=== PATIENT | male | born 1950 | race Caucasian/White ===

== ENCOUNTER 2021-01-22 15:31 | Inpatient (IN) | payer OTHER, MEDICARE ==
--- NOTE | 2021-01-22 16:49 | EDM.PDOC ---
ED HPI GENERAL MEDICAL PROBLEM - General Chief Complaint: Trauma Stated Complaint: KICKED BY BULL LT/RT LEG INJURIES Time Seen by Provider: 01/22/21 16:22 Source of Information: Reports: Patient, Family (spouse) History Limitations: Reports: No Limitations - History of Present Illness INITIAL COMMENTS - FREE TEXT/NARRATIVE: 71-year-old male presents to the ED per private vehicle. Patient was injured in the workplace at the local [employer] yard approximately 45 minutes before coming to the ED. Patient was struck broadside by a bull in the left lower extremity which propelled him into a steel chacon fence. 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 Injuries have resulted in significant contusion to the right lower extremity and hip. Patient is on Coumadin chronically for paroxysmal atrial fibrillation and he has developed significant hematomas lateral left knee left calf. Hematomas right calf and contusion to the right hip. Patient states he could walk initially and did not get propelled to the ground or kicked or stomped on in any other area. He denies any rib pain shoulder pain head or neck injury. Has chronic low back pain states he is no worse than normal. Ice packs were placed on both lower extremities upon arrival in the ED due to his significant hematoma formation. Onset: Today, Sudden Onset Date: 01/22/21 Duration: Minutes:, Getting Worse Location: Reports: Lower Extremity, Left, Lower Extremity, Right Quality: Reports: Ache, Throbbing Severity: Moderate (Right leg slightly worse than the left.) Improves with: Reports: None Worsens with: Reports: Movement (Any attempt to dorsiflex either foot causes increased pain lateral legs bilaterally.) Context: Reports: Trauma (Patient was injured by a bull in the workplace.) Associated Symptoms: Reports: Shortness of Breath (Occasion. Requires). Denies: Confusion, Chest Pain, Cough, cough w sputum, Diaphoresis, Fever/Chills, Headaches, Loss of Appetite, Malaise, Nausea/Vomiting, Rash, Seizure, Syncope Treatments MANUFACTURING WEAVER: Reports: Other (see below) Other Treatments MANUFACTURING WEAVER: none Right Lower Leg Pain Score (Numeric/FACES): 9 Left Lower Leg Pain Score (Numeric/FACES): 7 Left Knee Pain Score (Numeric/FACES): 7 - Related Data Allergies Allergy/AdvReac Type Severity Reaction Status Date / Time atorvastatin calcium Allergy Severe Cannot Verified 01/22/21 16:34 [From Lipitor] Remember Home Meds: Home Meds Albuterol [Ventolin HFA] 2 puff INH Q4H PRN 02/12/14 [History] Amiodarone [Cordarone] 90 mg PO DAILY 02/12/14 [History] Aspirin [[place] Aspirin] 81 mg PO DAILY 02/12/14 [History] Metoprolol Succinate 50 mg PO DAILY 02/12/14 [History] Nitroglycerin 0.4 mg SL ASDIRECTED PRN 02/12/14 [History] Rosuvastatin [Crestor] 40 mg PO DAILY 02/12/14 [History] Vitamin B Complex [Super B-50 Complex] 1 each PO DAILY 02/12/14 [History] Warfarin [Coumadin] 2.5 mg PO MOTUWEFRSA 02/12/14 [History] polyethylene glycoL 3350 [MiraLAX] 17 gm PO ASDIRECTED PRN 02/12/14 [History] Acetaminophen [Tylenol] 650 mg PO BEDTIME 01/22/21 [History] Acetaminophen [Tylenol] 650 mg PO Q6H PRN 01/22/21 [History] Eye-Vites 1 tab PO BID 01/22/21 [History] Gabapentin [Neurontin] 300 mg PO BEDTIME 01/22/21 [History] Valsartan 320 mg PO DAILY 01/22/21 [History] Warfarin [Coumadin] 1.25 mg PO SUTH 01/22/21 [History] amLODIPine [Norvasc] 2.5 mg PO DAILY 01/22/21 [History] Past Medical History Cardiovascular History: Reports: Afib (Paroxysmal atrial fibrillation. Patient is on Coumadin 2 mg daily.), High Cholesterol, Hypertension, [place], Stents (X2 placed back to back. 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 He was on Plavix for greater than 1 year after surgery.) Respiratory History: Reports: COPD (To be mild.) Other Respiratory History: Does use albuterol metered-dose inhaler as needed. 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 Spinal stenosis surgery. Continues to have chronic low back pain) Musculoskeletal Surgical History: Reports: Hip Replacement, Joint Replacement (bilateral reverse total shoulders). Denies: Knee Replacement Oncologic Surgical History: Reports: None Social & Family History - Tobacco Use Tobacco Use Status *Q: Never Tobacco User - Alcohol Use Alcohol Use History: Yes Date/Time of Last Drink Comment: Very infrequent or rare alcohol use. - Living Situation & Occupation Living situation: Reports: Occupation: Employed Review of Systems - Review of Systems Review Of Systems: See Below Constitutional: Denies: Chills, Diaphoresis, Fever, Weakness Eyes: Reports: No Symptoms Ears: Reports: Tinnitus (Mild bilaterally.), Other (Admits that he is mildly hard of hearing.) Nose: Reports: No Symptoms Mouth/Throat: Reports: No Symptoms. Denies: Bleeding Respiratory: Reports: Shortness of Breath (On exertion at times. Occasional wheezing. He does use albuterol inhaler as needed), Wheezing, Cough. Denies: Pleuritic Chest Pain, Sputum, Hemoptysis (Nonproductive) Cardiovascular: Reports: Irregular Heart Rate (History of paroxysmal atrial fibrillation.). Denies: Chest Pain, Edema GI/Abdominal: Reports: Constipation (Takes MiraLAX daily.) Genitourinary: Reports: Other (Urinary frequency. Nocturia x2-3.) Musculoskeletal: Reports: Neck Pain, Shoulder Pain, Back Pain (Chronic low back pain.), Joint Pain (Right hip both knees.) Skin: Reports: Bruising (Since being on Coumadin. He reports he is no longer taking Plavix. He does take a baby aspirin daily.) Neurological: Reports: No Symptoms, Difficulty Walking (Post injury to his legs today.). Denies: Confusion, Dizziness, Headache, Numbness, Syncope, Tingling, Weakness Psychiatric: Reports: No Symptoms, Other (Patient was on trazodone in the past. He believes this is to try and help him sleep. He is no longer taking this medication) ED EXAM, GENERAL - Physical Exam Exam: See Below Exam Limited By: No Limitations General Appearance: Alert, WD/WN, No Apparent Distress, Other (Temperature is 36.5 degrees. Heart rate 65 and sinus. Respiratory is 20 with ) Eye Exam: Bilateral Eye: Normal Inspection (Evidence of bilateral cataract extraction and intraocular lens placement.) Throat/Mouth: Normal Inspection, Normal Lips, Normal Oropharynx, Other (No injuries to his face, lips or tongue.) Head: Atraumatic, Normocephalic, Other (No signs of head or facial trauma) Neck: Normal Inspection, Non-Tender, Tender Lateral (Mild tenderness laterally. He states no worse than normal.). No: Carotid Bruit, Lymphadenopathy (L), Lymphadenopathy (R) Respiratory/Chest: Respiratory Distress (Mild tachypnea. O2 sats are 96% room air.), Decreased Breath Sounds (Decreased air entry lower 20% of lung feliz bilaterally.). No: Rhonchi, Wheezing Cardiovascular: Normal Peripheral Pulses, Regular Rate, Rhythm, No Edema, No Gallop, No Murmur, No Rub Peripheral Pulses: 3+: Carotid (L), Carotid (R), Posterior Tibial (L), Posterior Tibial (R), Dorsalis Pedis (L), Dorsalis Pedis (R) GI/Abdominal: Normal Bowel Sounds, Soft, Non-Tender, No Organomegaly, No Abnormal Bruit, No Mass, Pelvis Stable, Other (Evidence of previous laparoscopic cholecystectomy) (Male) Exam: No Hernia Back Exam: Other (Increased lordotic curvature. No evidence of injury to the lumbar thoracic spine on palpation. No contusion or abrasion to the thorax or lower back. No pain right flank.) Extremities: Limited Range of Motion (Pain both lower extremities on dorsiflexion of his feet. Right lower extremity shows hematoma from knee to ankle laterally. Pain right lateral hip on palpation without evidence of fracture clinically. He has had previous left total hip replacement), Other (Patient has a large hematoma softball size left lateral knee. No medial joint tenderness no traumatic effusion evident at this time. Unable to palpate lateral ligaments due to size of hematoma. Large hematoma lateral left leg from knee to ankle. Ecchymosis developing). No: Normal Inspection, Normal Range of Motion, Pedal Edema Neurological: Alert, Oriented, CN II-XII Intact, Normal Cognition Psychiatric: Normal Affect, Normal Mood Skin Exam: Warm, Dry, Intact, Ecchymosis ([facility] left lateral knee left lateral leg.) #1 Interpretation EKG Date: 01/22/21 Time: 18:07 Rhythm: NSR Rate (Beats/Min): 60 Underwood: LAD-Left Underwood Deviation (Left axis deviation -37 degrees) P-Wave: Present (Consider left atrial hypertrophy) QRS: Other (Near Q waves V1 and V2 consider old anteroseptal myocardial infarction. Q waves in leads II, III and aVF old inferior wall myocardial infarction. Tall R wave in lead I consider left ventricular perjury pattern) ST-T: Other (Abnormal R wave progression with delayed transition. T wave inversion leads V1 to V4 and flattening in V5 and V6. Consider ischemia.) EKG Interpretation Comments: Abnormal ECG Course - Vital Signs Last Recorded V/S: Last Vital Signs Temp 36.5 C 01/22/21 16:22 Pulse 65 01/22/21 16:22 Resp 20 01/22/21 16:22 BP 127/76 01/22/21 16:22 Pulse Ox 96 01/22/21 16:22 - Orders/Labs/Meds Orders: Active Orders 24 hr Category Date Time Status EKG Documentation Completion [RC] STAT Care 01/22/21 17:58 Active Tibia Fibula Rt [CR] Stat Exams 01/22/21 16:39 Taken Labs: Laboratory Tests 01/22/21 01/22/21 01/22/21 Range/Units 16:35 16:35 16:35 WBC 9.01 (4.23-9.07) K/mm3 RBC 4.61 L (4.63-6.08) M/mm3 Hgb 14.0 (13.7-17.5) gm/dl Hct 41.3 (40.1-51.0) % MCV 89.6 (79.0-92.2) fl MCH 30.4 (25.7-32.2) pg MCHC 33.9 (32.2-35.5) g/dl RDW Std Deviation 43.3 (35.1-43.9) fL Plt Count 153 L (163-337) K/mm3 MPV 10.5 (9.4-12.3) fl Neut % (Auto) 71.6 H (34.0-67.9) % Lymph % (Auto) 17.1 L (21.8-53.1) % Calloway % (Auto) 9.3 (5.3-12.2) % Eos % (Auto) 1.4 (0.8-7.0) Baso % (Auto) 0.4 (0.1-1.2) % Neut # (Auto) 6.44 H (1.78-5.38) K/mm3 Lymph # (Auto) 1.54 (1.32-3.57) K/mm3 Calloway # (Auto) 0.84 H (0.30-0.82) K/mm3 Eos # (Auto) 0.13 (0.04-0.54) K/mm3 Baso # (Auto) 0.04 (0.01-0.08) K/mm3 PT 31.2 H (9.7-12.0) SECONDS INR 2.98 Sodium 141 (136-145) mEq/L Potassium 3.6 (3.5-5.1) mEq/L Chloride 108 H (98-107) mEq/L Carbon Dioxide 24 (21-32) mEq/L Anion Gap 12.6 (5-15) BUN 18 (7-18) mg/dL Creatinine 1.0 (0.7-1.3) mg/dL Est Cr Clr Drug Dosing 65.79 mL/min Estimated GFR (MDRD) > 60 (>60) mL/min BUN/Creatinine Ratio 18.0 (14-18) Glucose 165 H (70-99) mg/dL Calcium 8.4 L (8.5-10.1) mg/dL Total Bilirubin 1.0 (0.2-1.0) mg/dL AST 22 (15-37) U/L ALT 34 (16-63) U/L Alkaline Phosphatase 62 (46-116) U/L Total Protein 6.7 (6.4-8.2) g/dl Albumin 3.9 (3.4-5.0) g/dl Globulin 2.8 gm/dL Albumin/Globulin Ratio 1.4 (1-2) Meds: Medications Discontinued Medications Generic Name Dose Route Start Last Admin Trade Name Freq PRN Reason Stop Dose Admin Hydromorphone HCl 0.5 mg 01/22/21 18:45 01/22/21 19:00 Hydromorphone 0.5 Mg/0.5 Ml Syringe IVPUSH 01/22/21 18:46 0.5 mg ONETIME ONE Administration Hydromorphone HCl 0.5 mg 01/22/21 19:50 01/22/21 20:04 Hydromorphone 0.5 Mg/0.5 Ml Syringe IVPUSH 01/22/21 19:51 0.5 mg ONETIME ONE Administration Dextrose/Sodium Chloride 1,000 mls @ 150 mls/hr 01/22/21 17:00 Dextrose 5%-Normal Saline IV ASDIRECTED BUBBA Lorazepam 1 mg 01/22/21 16:51 01/22/21 17:50 Lorazepam 2 Mg/Ml Sdv IVPUSH 01/22/21 16:52 Not Given ONETIME ONE Metoclopramide HCl 10 mg 01/22/21 16:50 01/22/21 17:51 Metoclopramide 10 Mg/2 Ml Sdv IVPUSH 01/22/21 16:51 Not Given ONETIME ONE Ondansetron HCl 4 mg 01/22/21 18:45 01/22/21 19:00 Ondansetron 4 Mg/2 Ml Sdv IVPUSH 01/22/21 18:46 4 mg ONETIME ONE Administration - Radiology Interpretation Free Text/Narrative:: 71-year-old male presents to the ED after injury in the workplace today. He is an employee of the [employer] here in [place]. He states he was moving bulls from 1 pen to the next when one struck him broadside by the butt of the bull. Believes he was kicked in the left lower leg as well. This resulted in propelling him into a large steel chacon fence injuring his left lower extremity and left lateral hip. He did not get knocked to the ground. He did not get stomped on or kicked in any other place. Patient is on Coumadin daily for paroxysmal atrial fibrillation. He waited about 45 minutes but developed significant swelling of both lower extremities and left lateral knee and elected to come to the hospital per his and private vehicle. Patient states he was able to walk out of the car but quickly sat in a wheelchair before coming into the ED. He denies any head or neck pain. Denies any thoracic or lumbar spine pain. No pain in his upper extremities. Patient has a left total knee hip replacement. He has had bilateral shoulder replacements as well. - Re-Assessments/Exams Free Text/Narrative Re-Assessment/Exam: 01/22/21 17:41 x-rays of the right femur reveal advanced degenerative arthritic changes within the hip joint. No fractures are identified. X-rays of the left tib-fib reveal no evidence of a fracture. There is moderate degenerative arthritic change in the left knee. X-rays of the right tib-fib reveal moderate degenerative changes right knee particularly medial joint space. There is also arthritic changes at the patellofemoral articulation. There is a hairline nondisplaced fracture of the proximal right fibula. There is also slight bowing of the fibula . Treatment will be nonweightbearing--which is likely going to be the case anyway since he has significant hematomas both lower extremities and will likely find it impossible to walk over the next 36 to 48 hours. 01/22/21 17:47 White blood cell count is normal at 9.01. Neutrophils are 71.6% on the auto differential. Hemoglobin is 14.0 with hematocrit of 41.3. Platelet count is low normal at 1 53,000. PT is elevated at 31.2 with an INR elevated at 2.98. Mildly supratherapeutic. Sodium is 141 with potassium of 3.6. Chloride is 108 with a bicarb of 24. Anion gap is 12.6. BUN is 18 with a creatinine of 1.0 and a GFR greater than 60. Glucose is elevated 165. Calcium is 8.4 liver function is normal. Total protein 6.7 with an albumin fraction of 3.9. 01/22/21 17:56 I have discussed the findings with the patient and his family i.e. daughter and . He is significant hematoma from knee to ankle bilaterally on the lateral aspect of his legs. It is unlikely that he will be able to weight-bear. At present he has to void. He is going to try and walk see if he can weight-bear which would allow him to go home although hematomas are likely to increase in size over the next 24 to 48 hours. He is likely to experience severe pain with dorsiflexion of both feet. On reexamination the patient has strong dorsalis pedis and posterior tibial pulses bilaterally. Risk of compartment syndrome is present but is unlikely since most of the hematomas are in the lateral compartment bilaterally. I will have the nurses come and help him to see if he can weight-bear which I think is unlikely. He has to void at this time and will likely require urinal. 01/22/21 18:33 We did get the patient up to the standing position and he was not able to take any steps and only able to shuffle a couple of steps before had the pain became severe in his lower extremities right slightly worse than the left. He still has very strong dorsalis pedis and proximal tibial pulses bilaterally. I have spoken with Dr. Mejia on-call hospitalist and he will be admitted to the med surgery floor. I will write bridge orders to get this patient admitted. He will require pulse check every 2 hours for the next 12 hours. I am going to give him 0.5 mg of Dilaudid with Zofran 4 mg IV for pain relief. The right lower extremity is throbbing quite badly at this time. Unf ortunately cafeteria is close to this time. Family members are going to bring him back some supper. 01/22/21 19:35 Patient is looking a little peaked. He reports he did develop some flushing after the Dilaudid 0.5 mg IV and a little nausea. He has received Zofran 4 mg IV. Suggest that he receive Zofran 4 mg IV prior to further dosing with Dilaudid. He reports his pain is gone from a 9 down to a 5. He is going to eat a little supper at present. We will repeat Dilaudid in 20 minutes or so. Patient to the [facility] surgery floor is delayed due to waiting for his COVID-19 screen. 01/22/21 20:31 patient feels second dose of Dilaudid 0.5 mg IV given at 2000 hrs. has taken the edge off of his pain in his legs. He was able to nod off a wee bit. Did not eat much of his supper as he remained mildly nauseated. No increased nausea at this time after second dose of Dilaudid with Zofran on board. Departure - Departure Time of Disposition: 20:30 Disposition: Admitted As Inpatient 64 Condition: Fair Clinical Impression: Contusion of right lower leg, initial encounter, Contusion of right hip, initial encounter, Supratherapeutic INR, Paroxysmal atrial fibrillation Contusion of left lower extremity Qualifiers: Encounter type: initial encounter Qualified Code(s): S80.12XA - Contusion of left lower leg, initial encounter Fracture of proximal end of right fibula Qualifiers: Encounter type: initial encounter Fracture type: closed Fracture morphology: other fracture Qualified Code(s): S82.831A - Other fracture of upper and lower end of right fibula, initial encounter for closed fracture - Discharge Information Sepsis Event Note (ED) - Focused Exam Vital Signs: Vital Signs Temp Pulse Resp BP Pulse Ox 01/22/21 16:22 36.5 C 65 20 127/76 96 - My Orders Last 24 Hours: My Active Orders 01/22/21 16:39 Tibia Fibula Rt [CR] Stat 01/22/21 17:58 EKG Documentation Completion [RC] STAT - Assessment/Plan Last 24 Hours: My Active Orders 01/22/21 16:39 Tibia Fibula Rt [CR] Stat 01/22/21 17:58 EKG Documentation Completion [RC] STAT
[2021-01-22] MEDS ORDERED: Metoclopramide 10 MG/2 ML SDV IVPUSH ONE (16:50)
[2021-01-22] MEDS ORDERED: LORazepam 2 MG/ML SDV IVPUSH ONE (16:51)
[2021-01-22] MEDS ORDERED: Dextrose 5%-0.9% NaCl 1,000 ML IV SCH (17:00)
--- NOTE | 2021-01-22 17:33 | CR ---
Right femur: AP and lateral views of the right femur were obtained. Comparison: No previous right femur study. Joint space narrowing is seen within the right hip. Spurring is noted off the patella at the attachment of the quadriceps tendon and patellar ligament. Vascular calcification is noted. No acute fracture or other bony abnormality is appreciated. Impression: 1. Findings as noted above. 2. Nothing acute is seen on right femur study. Diagnostic code #2
--- NOTE | 2021-01-22 17:33 | CR ---
Left tibia and fibula: 2 views of the left tibia and fibula were obtained. Comparison: No prior left tibia or fibula exam. No acute fracture or other bony abnormality is seen. Soft tissue swelling is seen. Impression: 1. Soft tissue swelling. 2. No acute bony abnormality is seen. Diagnostic code #2
[2021-01-22] MEDS ORDERED: Ondansetron 4 MG/2 ML SDV IVPUSH ONE (18:45)
[2021-01-22] MEDS ORDERED: HYDROmorphone 0.5 MG/0.5 ML Syringe IVPUSH ONE ×2 (18:45→19:50)
[2021-01-23] MEDS ORDERED: Ondansetron 4 MG/2 ML SDV IVPUSH PRN (00:35)
[2021-01-23] MEDS: HYDROmorphone 0.5 MG/0.5 ML Syringe IVPUSH PRN ×4 (00:47→14:09)
--- NOTE | 2021-01-23 07:23 | PCM.HP.2 ---
H&P History of Present Illness - General Date of Service: 01/23/21 Admit Problem/Dx: Admission Diagnosis/Problem Admission Diagnosis/Problem Hematoma and contusion Source of Information: Patient, Old Records, Provider, RN, RN Notes Reviewed History Limitations: Reports: No Limitations - History of Present Illness Initial Comments - Free Text/Narative: This is a 71-year male who presents to our ED on the evening of 01/22/2021 after workplace injury at the [employer] yard. He reportedly struck by a ball and slammed into a steel chacon fence. He was reportedly struck on the left side which resulted in right lower extremity and hip pain. He is on Coumadin for proximal A. fib and is noted to have significant hematomas over the lateral left knee and left calf. There are also hematomas noted to the right calf and contusion of the right hip. He was able to walk initially after the injury. Denies any rib pain, shoulder pain, head or neck pain. He does have chronic low back pain but states that that is stable. Bystanders did apply ice packs and those are present on ED arrival. In the ED twelve-lead EKG is obtained showing a sinus rhythm at 60 bpm with left axis deviation. Consider left atrial hypertrophy. There are near Q waves in V1 and V2 and Q waves noted in inferior leads. Tall R waves are noted in lead I. There is abnormal R wave progression with delayed transition and T wave inversion in leads V1 through V4 with flattening in V5 and V6. Temp is 36.5. Pulse 65. Respirations 20. Blood pressure 127/76. Pulse ox 96%. Labs are obtained with a WBC of 9.01. Hemoglobin is 14.0. Hematocrit 41.3. Platelet 153,000. Neutrophils are 71.6%. INR is 2.98. Sodium 141. Potassium 3.6. Chloride 108. Carbon dioxide 24. Anion gap 12.6. BUN is 18. Creatinine 1.0. GFR greater than 60. Glucose 165. Calcium 8.4. Total bilirubin 1.0. AST is 22, ALT 34, alkaline phosphatase 62. Protein is 6.7. Albumin 3.9. SARS-CoV-2 RNA is negative. Left tibia-fibula x-ray was obtained showing soft tissue swelling and no acute bony abnormality. Right femur x-rays obtained showing findings as noted above but no acute abnormality. Formal read of the right tibia and fibula are pending however ED provider notes hairline nondisplaced fracture of the proximal right fibula with slight bowing of the fibula. He is noted to be unable to bear weight in the ED. he is given Dilaudid, lorazepam, Zofran, and metoclopramide in the ED for pain and nausea. He started on D5 NS. He subsequently admitted to the medical floor for further management of his pain from hematoma and fracture. He carries a history of proximal A. fib, chronic anticoagulation on Coumadin, HLD, HTN, SC with 2 stents placed, COPD, arthritis, chronic back pain, osteoarthritis. He was never smoker. He is a full code. His PCP is Dr. Madelin Rincon at [facility] in [place]. Right Lower Leg Pain Score (Numeric/FACES): 9 Left Lower Leg Pain Score (Numeric/FACES): 7 Left Knee Pain Score (Numeric/FACES): 7 - Related Data Allergies/Adverse Reactions: Allergies Allergy/AdvReac Type Severity Reaction Status Date / Time atorvastatin calcium Allergy Severe Liver Verified 01/22/21 23:10 [From Lipitor] Problems Home Medications: Home Meds Albuterol [Ventolin HFA] 2 puff INH Q4H PRN 02/12/14 [History] Aspirin [[place] Aspirin] 81 mg PO DAILY 02/12/14 [History] Metoprolol Succinate 50 mg PO DAILY 02/12/14 [History] Nitroglycerin 0.4 mg SL ASDIRECTED PRN 02/12/14 [History] Rosuvastatin [Crestor] 40 mg PO DAILY 02/12/14 [History] Vitamin B Complex [Super B-50 Complex] 1 each PO DAILY 02/12/14 [History] Warfarin [Coumadin] 2.5 mg PO MOTUWEFRSA 02/12/14 [History] polyethylene glycoL 3350 [MiraLAX] 17 gm PO ASDIRECTED PRN 02/12/14 [History] Acetaminophen [Tylenol] 650 mg PO Q6H PRN 01/22/21 [History] Eye-Vites 1 tab PO BID 01/22/21 [History] Gabapentin [Neurontin] 300 mg PO BEDTIME 01/22/21 [History] Valsartan 320 mg PO DAILY 01/22/21 [History] Warfarin [Coumadin] 1.25 mg PO SUTH 01/22/21 [History] amLODIPine [Norvasc] 2.5 mg PO DAILY 01/22/21 [History] Calcium Citrate/Vitamin D3 [Calcium Citrate-Vit D Caplet] 315 mg PO DAILY 01/23/21 [History] Isosorbide Mononitrate [Imdur] 60 mg PO DAILY 01/23/21 [History] Past Medical History HEENT History: Reports: Cataract, Hard of Hearing, Other (See Below) Other HEENT History: Hearing aids, not with patient. Cardiovascular History: Reports: Afib, High Cholesterol, Hypertension, SC, Stents Respiratory History: Reports: COPD, SOB Other Respiratory History: Does use albuterol metered-dose inhaler as needed. Gastrointestinal History: Reports: Hemorrhoids Genitourinary History: Reports: Renal Calculus, Other (See Below) Other Genitourinary History: Patient reports current kidney stone (01/22). Musculoskeletal History: Reports: Arthritis, Back Pain, Chronic, Osteoarthritis Neurological History: Reports: TIA Oncologic (Cancer) History: Reports: Other (See Below) Other Oncologic History: Skin cancer. - Infectious Disease History Infectious Disease History: Reports: Novel Coronavirus - Past Surgical History HEENT Surgical History: Reports: Cataract Surgery Cardiovascular Surgical History: Reports: Carotid Stents, Coronary Artery Stent Respiratory Surgical History: Reports: None GI Surgical History: Reports: Cholecystectomy Neurological Surgical History: Reports: Lumbar Spine, Other (See Below) Other Neurological Surgeries/Procedures: Removed bone spur on spine. Musculoskeletal Surgical History: Reports: Hip Replacement, Joint Replacement Other Musculoskeletal Surgeries/Procedures:: left Oncologic Surgical History: Reports: None Social & Family History - Family History Family Medical History: No Pertinent Family History - Tobacco Use Tobacco Use Status *Q: Never Tobacco User - Caffeine Use Caffeine Use: Reports: Coffee, Soda - Recreational Drug Use Recreational Drug Use: No - Living Situation & Occupation Living situation: Reports: Occupation: Employed H&P Review of Systems - Review of Systems: Review Of Systems: See Below General: Reports: No Symptoms. Denies: Fever, Chills, Malaise, Weakness, Fatigue HEENT: Reports: Other (Chronic mild tinnitus bilaterally). Denies: Headaches, Sore Throat Pulmonary: Reports: No Symptoms. Denies: Shortness of Breath, Wheezing, Pleuritic Chest Pain, Cough, Sputum Cardiovascular: Reports: No Symptoms. Denies: Chest Pain, Palpitations, Orthopnea, Edema Gastrointestinal: Reports: Constipation (chronic ). Denies: Abdominal Pain, Diarrhea, Nausea, Vomiting Genitourinary: Reports: No Symptoms. Denies: Pain Musculoskeletal: Reports: Shoulder Pain (chronic ), Back Pain (chronic ), Leg Pain (bilateral ), Joint Pain (bilateral kips and knees ) Skin: Reports: No Symptoms Psychiatric: Reports: No Symptoms. Denies: Confusion Neurological: Reports: No Symptoms, Difficulty Walking, Gait Disturbance. Denies: Confusion, Dizziness, Headache, Numbness, Pre-Existing Deficit, Syncope, Tingling, Weakness Hematologic/Lymphatic: Reports: No Symptoms, Easy Bleeding, Easy Bruising Immunologic: Reports: No Symptoms Exam - Exam Exam: See Below - Vital Signs Vital Signs: Last Vital Signs Temp 98.4 F 01/23/21 05:24 Pulse 57 L 01/23/21 05:24 Resp 14 01/23/21 05:24 BP 127/65 01/23/21 05:24 Pulse Ox 95 01/23/21 05:24 Weight: 255 lb 4.8 oz - Exam Quality Assessment: DVT Prophylaxis. No: Supplemental Oxygen, Urinary Catheter General: Alert, Oriented, Cooperative. No: Mild Distress HEENT: Conjunctiva Clear, EACs Clear, Mucosa Moist & [place], Posterior Pharynx Clear Neck: Supple, Trachea Midline Lungs: Clear to Auscultation, Normal Respiratory Effort, Decreased Breath Sounds Cardiovascular: Regular Rate, Regular Rhythm GI/Abdominal Exam: Normal Bowel Sounds, Soft, Non-Tender, No Distention (Male) Exam: Deferred Rectal (Males) Exam: Deferred Back Exam: Normal Inspection, Full Range of Motion Extremities: Non-Tender, No Pedal Edema, Normal Capillary Refill, Leg Pain (Bilateral), Limited Range of Motion (Secondary to pain), Other (Hematoma on right leg from knee to ankle laterally. Hematoma on left lateral knee. Hematoma on lateral leg from knee to ankle. Scattered ecchymosis bilaterally.) Peripheral Pulses: 2+: Radial (L), Radial (R), Dorsalis Pedis (L), Dorsalis Pedis (R) Skin: Warm, Dry, Intact, Ecchymosis (Scattered) Neurological: Cranial Nerves Intact (Grossly) Neuro Extensive - Mental Status: Alert, Oriented x3, Normal Mood/Affect - Patient Data Lab Results Last 24 hrs: Laboratory Results - last 24 hr 01/22/21 01/22/21 01/22/21 Range/Units 16:35 16:35 16:35 WBC 9.01 (4.23-9.07) K/mm3 RBC 4.61 L (4.63-6.08) M/mm3 Hgb 14.0 (13.7-17.5) gm/dl Hct 41.3 (40.1-51.0) % MCV 89.6 (79.0-92.2) fl MCH 30.4 (25.7-32.2) pg MCHC 33.9 (32.2-35.5) g/dl RDW Std Deviation 43.3 (35.1-43.9) fL Plt Count 153 L (163-337) K/mm3 MPV 10.5 (9.4-12.3) fl Neut % (Auto) 71.6 H (34.0-67.9) % Lymph % (Auto) 17.1 L (21.8-53.1) % [place] % (Auto) 9.3 (5.3-12.2) % Eos % (Auto) 1.4 (0.8-7.0) Baso % (Auto) 0.4 (0.1-1.2) % Neut # (Auto) 6.44 H (1.78-5.38) K/mm3 Lymph # (Auto) 1.54 (1.32-3.57) K/mm3 [place] # (Auto) 0.84 H (0.30-0.82) K/mm3 Eos # (Auto) 0.13 (0.04-0.54) K/mm3 Baso # (Auto) 0.04 (0.01-0.08) K/mm3 PT 31.2 H (9.7-12.0) SECONDS INR 2.98 Sodium 141 (136-145) mEq/L Potassium 3.6 (3.5-5.1) mEq/L Chloride 108 H (98-107) mEq/L Carbon Dioxide 24 (21-32) mEq/L Anion Gap 12.6 (5-15) BUN 18 (7-18) mg/dL Creatinine 1.0 (0.7-1.3) mg/dL Est Cr Clr Drug Dosing 65.79 mL/min Estimated GFR (MDRD) > 60 (>60) mL/min BUN/Creatinine Ratio 18.0 (14-18) Glucose 165 H (70-99) mg/dL Calcium 8.4 L (8.5-10.1) mg/dL Total Bilirubin 1.0 (0.2-1.0) mg/dL AST 22 (15-37) U/L ALT 34 (16-63) U/L Alkaline Phosphatase 62 (46-116) U/L Total Protein 6.7 (6.4-8.2) g/dl Albumin 3.9 (3.4-5.0) g/dl Globulin 2.8 gm/dL Albumin/Globulin Ratio 1.4 (1-2) SARS-CoV-2 RNA (GÓMEZ) (NEGATIVE) 01/22/21 Range/Units 18:54 WBC (4.23-9.07) K/mm3 RBC (4.63-6.08) M/mm3 Hgb (13.7-17.5) gm/dl Hct (40.1-51.0) % MCV (79.0-92.2) fl MCH (25.7-32.2) pg MCHC (32.2-35.5) g/dl RDW Std Deviation (35.1-43.9) fL Plt Count (163-337) K/mm3 MPV (9.4-12.3) fl Neut % (Auto) (34.0-67.9) % Lymph % (Auto) (21.8-53.1) % [place] % (Auto) (5.3-12.2) % Eos % (Auto) (0.8-7.0) Baso % (Auto) (0.1-1.2) % Neut # (Auto) (1.78-5.38) K/mm3 Lymph # (Auto) (1.32-3.57) K/mm3 [place] # (Auto) (0.30-0.82) K/mm3 Eos # (Auto) (0.04-0.54) K/mm3 Baso # (Auto) (0.01-0.08) K/mm3 PT (9.7-12.0) SECONDS INR Sodium (136-145) mEq/L Potassium (3.5-5.1) mEq/L Chloride (98-107) mEq/L Carbon Dioxide (21-32) mEq/L Anion Gap (5-15) BUN (7-18) mg/dL Creatinine (0.7-1.3) mg/dL Est Cr Clr Drug Dosing mL/min Estimated GFR (MDRD) (>60) mL/min BUN/Creatinine Ratio (14-18) Glucose (70-99) mg/dL Calcium (8.5-10.1) mg/dL Total Bilirubin (0.2-1.0) mg/dL AST (15-37) U/L ALT (16-63) U/L Alkaline Phosphatase (46-116) U/L Total Protein (6.4-8.2) g/dl Albumin (3.4-5.0) g/dl Globulin gm/dL Albumin/Globulin Ratio (1-2) SARS-CoV-2 RNA (GÓMEZ) Negative (NEGATIVE) Result Diagrams: 01/23/21 08:25 01/23/21 08:15 Sepsis Event Note - Evaluation Sepsis Screening Result: No Definite Risk - Focused Exam Vital Signs: Vital Signs Temp Pulse Resp BP Pulse Ox 01/23/21 05:24 98.4 F 57 L 14 127/65 95 01/23/21 00:51 98.1 F 61 14 119/74 97 01/22/21 21:48 97.9 F 62 14 120/67 97 - Problem List (1) Chronic anticoagulation SNOMED Code(s): 390172838 ICD Code: Z79.01 - HOG [employer]IVER (CURRENT) USE OF ANTICOAGULANTS Status: Chronic Priority: High Current Visit: Yes (2) HLD (hyperlipidemia) SNOMED Code(s): 68779025 ICD Code: E78.5 - HYPERLIPIDEMIA, UNSPECIFIED Status: Chronic Priority: Low Current Visit: No Qualifiers: Hyperlipidemia type: unspecified Qualified Code(s): E78.5 - Hyperlipidemia, unspecified (3) HTN (hypertension) SNOMED Code(s): 85753422 ICD Code: I10 - ESSENTIAL (PRIMARY) HYPERTENSION Status: Chronic Priority: Medium Current Visit: No Qualifiers: Hypertension type: unspecified Qualified Code(s): I10 - Essential (primary) hypertension (4) History of SC (myocardial infarction) SNOMED Code(s): 778909118 ICD Code: I25.2 - OLD MYOCARDIAL INFARCTION Status: Chronic Priority: Low Current Visit: No (5) History of heart artery stent SNOMED Code(s): 698089960, 417484741 ICD Code: Z95.5 - PRESENCE OF CORONARY ANGIOPLASTY IMPLANT AND GRAFT Status: Chronic Priority: Low Current Visit: No (6) COPD (chronic obstructive pulmonary disease) SNOMED Code(s): 88564380 ICD Code: J44.9 - CHRONIC OBSTRUCTIVE PULMONARY DISEASE, UNSPECIFIED Status: Chronic Priority: Medium Current Visit: No Qualifiers: COPD type: unspecified COPD Qualified Code(s): J44.9 - Chronic obstructive pulmonary disease, unspecified (7) Arthritis SNOMED Code(s): 7171384 ICD Code: M19.90 - UNSPECIFIED OSTEOARTHRITIS, UNSPECIFIED SITE Status: Chronic Priority: Low Current Visit: No (8) Chronic back pain SNOMED Code(s): 364057750 ICD Code: M54.9 - DORSALGIA, UNSPECIFIED; G89.29 - OTHER CHRONIC PAIN Status: Chronic Priority: Low Current Visit: No Qualifiers: Back pain location: back pain in unspecified location Back pain laterality: unspecified Qualified Code(s): M54.9 - Dorsalgia, unspecified; G89.29 - Other chronic pain (9) Osteoarthritis SNOMED Code(s): 701632702 ICD Code: M19.90 - UNSPECIFIED OSTEOARTHRITIS, UNSPECIFIED SITE Status: Chronic Priority: Low Current Visit: No Qualifiers: Osteoarthritis location: multiple joints Osteoarthritis type: primary Qualified Code(s): M89.49 - Other hypertrophic osteoarthropathy, multiple sites (10) Contusion of left lower extremity SNOMED Code(s): 02189637 ICD Code: S80.12XA - CONTUSION OF LEFT LOWER LEG, INITIAL ENCOUNTER Status: Acute Priority: High Current Visit: Yes Qualifiers: Encounter type: initial encounter Qualified Code(s): S80.12XA - Contusion of left lower leg, initial encounter (11) Contusion of right hip, initial encounter SNOMED Code(s): 64606272 ICD Code: S70.01XA - CONTUSION OF RIGHT HIP, INITIAL ENCOUNTER Status: Acute Priority: High Current Visit: Yes (12) Contusion of right lower leg, initial encounter SNOMED Code(s): 04476044178290561 ICD Code: S80.11XA - CONTUSION OF RIGHT LOWER LEG, INITIAL ENCOUNTER Status: Acute Priority: High Current Visit: Yes (13) Fracture of proximal end of right fibula SNOMED Code(s): 38365241 ICD Code: S82.831A - OTH FRACTURE OF UPPER AND LOWER END OF RIGHT FIBULA, INIT Status: Acute Priority: High Current Visit: Yes Qualifiers: Encounter type: initial encounter Fracture type: closed Fracture morphology: other fracture Qualified Code(s): S82.831A - Other fracture of upper and lower end of right fibula, initial encounter for closed fracture (14) Paroxysmal atrial fibrillation SNOMED Code(s): 854920782 ICD Code: I48.0 - PAROXYSMAL ATRIAL FIBRILLATION Status: Chronic Ban ority: Medium Current Visit: No Problem List Initiated/Reviewed/Updated: Yes Orders Last 24hrs: Active Orders 24 hr Category Date Time Status Admission Status [Patient Status] [ADT] Routine ADT 01/22/21 18:47 Active Bedrest [RC] BID Care 01/22/21 21:35 Active Communication Order [RC] BID Care 01/22/21 21:35 Active Communication Order [RC] BID Care 01/22/21 21:35 Active Heart Healthy Diet [DIET] Diet 01/23/21 Breakfast Active Tibia Fibula Rt [CR] Stat Exams 01/22/21 16:39 Taken HYDROmorphone [Dilaudid] Med 01/23/21 00:34 Active 0.5 mg IVPUSH Q2H PRN Ondansetron [Zofran] Med 01/23/21 00:35 Active 4 mg IVPUSH Q6H PRN Code Status [Resuscitation Status] Routine Resus Stat 01/23/21 01:25 Ordered Medication Orders Hydromorphone HCl (Hydromorphone 0.5 Mg/0.5 Ml Syringe) 0.5 mg IVPUSH Q2H PRN PRN Reason: Pain Last Admin: 01/23/21 05:18 Dose: 0.5 mg Documented by: Admin: 01/23/21 00:47 Dose: 0.5 mg Documented by: CALVIN Ondansetron HCl (Ondansetron 4 Mg/2 Ml Sdv) 4 mg IVPUSH Q6H PRN PRN Reason: Nausea Assessment/Plan Comment:: Assessment - 01/23/2021 (admitted evening of 01/22/2021) * 71-year male who presents to our ED on the evening of 01/22/2021 after workplace injury at the [employer] * History of proximal A. fib, chronic anticoagulation on Coumadin, HLD, HTN, SC with 2 stents placed, COPD, arthritis, chronic back pain, osteoarthritis * Struck by a ball and slammed into a steel chacon fence. * Struck on the left side which resulted in right lower extremity and hip pain * On Coumadin for proximal A. fib and is noted to have significant hematomas over the lateral left knee and left calf * Hematomas noted to the right calf and contusion of the right hip * Was able to walk initially after the injury * Denies any rib pain, shoulder pain, head or neck pain. He does have chronic low back pain but states that that is stable. * Bystanders did apply ice packs and those are present on ED arrival. * 12-lead EKG is obtained showing a sinus rhythm at 60 bpm with left axis deviation. Consider left atrial hypertrophy. There are near Q waves in V1 and V2 and Q waves noted in inferior leads. Tall R waves are noted in lead I. There is abnormal R wave progression with delayed transition and T wave inversion in leads V1 through V4 with flattening in V5 and V6. * Labs are obtained: * WBC of 9.01. * Hemoglobin 14.0. Hematocrit 41.3. * Platelet 153,000. * Neutrophils are 71.6%. * INR 2.98. * Sodium 141. * Potassium 3.6. * Chloride 108. * Carbon dioxide 24. * Anion gap 12.6. * BUN is 18. Creatinine 1.0. GFR greater than 60. * Glucose 165. * Calcium 8.4. * Total bilirubin 1.0. * AST is 22, ALT 34, alkaline phosphatase 62. * Protein is 6.7. * Albumin 3.9. * SARS-CoV-2 RNA is negative. * Left tibia-fibula x-ray was obtained showing soft tissue swelling and no acute bony abnormality. * Right femur x-rays obtained showing findings as noted above but no acute abnormality. * Formal read of the right tibia and fibula are pending however ED provider not es hairline nondisplaced fracture of the proximal right fibula with slight bowing of the fibula. * Noted to be unable to bear weight in the ED. * Given Dilaudid, lorazepam, Zofran, and metoclopramide in the ED for pain and nausea. He started on D5 NS. * Admitted to the medical floor for further management of his pain from hematoma and fracture. PLAN: Fracture of proximal end of right fibula Contusion of left lower extremity Contusion of right hip, initial encounter Contusion of right lower leg, initial encounter * CBC, CMP, Magnesium, INR today * Q8Hr H/H * Daily labs * Weightbearing as tolerated lower extremities * Monitor bilateral lower extremity pulses at least BID * Contacted Dr. Gaitan, on-call orthopedics within [facility] in [place]. * Recommended compression stockings bilaterally * WBAT * Monitor for compartment syndrome * Follow-up with orthopedics within 10-14 days of discharge * PT/OT * CM/SW consult * Pain medications as ordered * O2 as needed to keep saturations >90% * BID colace for constipation/narcotic use Paroxysmal atrial fibrillation Chronic anticoagulation History of SC (myocardial infarction) History of heart artery stent * Hold ASA and warfarin today per Dr. Mejia * Daily INR * Consider resumption of ASA/Aspirin tomorrow * Telemetry Arthritis Chronic back pain Osteoarthritis * Pain medications as ordered * PT/OT * No acute concerns HLD (hyperlipidemia) * No acute concerns * Hold home statin for now HTN (hypertension) * No acute concerns * Monitor vital signs * Home BP meds as ordered COPD (chronic obstructive pulmonary disease) * No acute concerns * Home albuterol MDI PRN * Duonebs if needed * Continue to monitor Code status: Full code PCP: Dr. Madelin Rincon at [facility] in [place]. DVT prophylaxis: Home warfarin held today due to bleeding risk with INR therapeutic (Consider resumption tomorrow) Disposition: Patient admitted to medical floor for further pain control and PT OT due to femur fracture and significant hematomas. Upgraded to telemetry given cardiac history. Likely discharge in 1-2 days pending PT/OT evaluation and pain control. - Mortality Measure Prognosis:: Good
[2021-01-23] MEDS ORDERED: Acetaminophen 325 MG Tab PO PRN (08:12)
[2021-01-23] MEDS ORDERED: Albuterol/Ipratropium 3.0-0.5 MG/3 ML Neb Soln NEB PRN (08:12)
[2021-01-23] MEDS ORDERED: Docusate Sodium 100 MG Cap PO PRN (08:12)
[2021-01-23] MEDS ORDERED: Polyethylene Glycol 3350 Powder 17 GM Packet PO PRN (08:14)
[2021-01-23] MEDS ORDERED: Albuterol 6.7 GM Inhaler INH PRN (08:19)
[2021-01-23] MEDS: amLODIPine 2.5 MG Tab PO SCH (08:44)
[2021-01-23] MEDS: Metoprolol Succinate 25 MG Tab.ER PO SCH (08:45)
[2021-01-23] MEDS: Isosorbide Mononitrate 60 MG Tab.ER PO SCH (08:45)
--- NOTE | 2021-01-23 09:01 | CR ---
Right tibia and fibula: 2 views of the right tibia and fibula were obtained. Comparison: No previous study. Spur is noted off the posterior calcaneus which appears detached. Minimal joint space narrowing is noted within the lateral knee. Mild soft tissue swelling is seen. No acute fracture or other bony abnormality is seen. Impression: 1. Soft tissue swelling. 2. Other findings believed to be incidental. Nothing acute is seen. Diagnostic code #2
[2021-01-23] MEDS: Docusate Sodium 100 MG Cap PO SCH ×2 (10:01→21:52)
[2021-01-23] MEDS: Acetaminophen/oxyCODONE 325-5 MG Tab PO PRN ×2 (15:00→22:53)
[2021-01-23] MEDS: Cyclobenzaprine 10 MG Tab PO PRN (21:51)
[2021-01-23] MEDS: Gabapentin 300 MG Cap PO SCH (21:52)
[2021-01-24] MEDS: Cyclobenzaprine 10 MG Tab PO PRN ×2 (07:30→14:16)
[2021-01-24] MEDS: amLODIPine 2.5 MG Tab PO SCH (08:05)
[2021-01-24] MEDS: Metoprolol Succinate 25 MG Tab.ER PO SCH (08:05)
[2021-01-24] MEDS: Isosorbide Mononitrate 60 MG Tab.ER PO SCH (08:05)
--- NOTE | 2021-01-24 09:39 | PCM.PN ---
- General Info Date of Service: 01/24/21 Admission Dx/Problem (Free Text): Admission Diagnosis/Problem Admission Diagnosis/Problem Hematoma and contusion Subjective Update: Patient having spastic pain in right leg left leg also painful; but less than right denies chest pain denies sob hgb trending down blisters noted on right leg - Review of Systems HEENT: Reports: No Symptoms Pulmonary: Reports: No Symptoms Cardiovascular: Reports: No Symptoms Gastrointestinal: Reports: No Symptoms Musculoskeletal: Reports: Leg Pain Skin: Reports: Bruising Neurological: Reports: No Symptoms - Patient Data Vitals - Most Recent: Last Vital Signs Temp 98.2 F 01/24/21 07:30 Pulse 68 01/24/21 08:05 Resp 18 01/24/21 07:30 BP 115/60 01/24/21 08:05 Pulse Ox 95 01/24/21 07:56 Weight - Most Recent: 257 lb I&O - Last 24 Hours: Intake & Output 01/23/21 01/24/21 01/24/21 22:59 06:59 14:59 Intake Total 1060 300 Output Total 675 850 Balance 385 -550 Lab Results Last 24 Hours: Laboratory Results - last 24 hr 01/23/21 01/23/21 01/24/21 Range/Units 09:20 16:18 00:14 WBC (4.23-9.07) K/mm3 RBC (4.63-6.08) M/mm3 Hgb 11.9 L 10.7 L (13.7-17.5) gm/dl Hct 35.6 L 32.6 L (40.1-51.0) % MCV (79.0-92.2) fl MCH (25.7-32.2) pg MCHC (32.2-35.5) g/dl RDW Std Deviation (35.1-43.9) fL Plt Count (163-337) K/mm3 MPV (9.4-12.3) fl Neut % (Auto) (34.0-67.9) % Lymph % (Auto) (21.8-53.1) % [place] % (Auto) (5.3-12.2) % Eos % (Auto) (0.8-7.0) Baso % (Auto) (0.1-1.2) % Neut # (Auto) (1.78-5.38) K/mm3 Lymph # (Auto) (1.32-3.57) K/mm3 [place] # (Auto) (0.30-0.82) K/mm3 Eos # (Auto) (0.04-0.54) K/mm3 Baso # (Auto) (0.01-0.08) K/mm3 PT 34.3 H (9.7-12.0) SECONDS INR 3.28 Sodium (136-145) mEq/L Potassium (3.5-5.1) mEq/L Chloride (98-107) mEq/L Carbon Dioxide (21-32) mEq/L Anion Gap (5-15) BUN (7-18) mg/dL Creatinine (0.7-1.3) mg/dL Est Cr Clr Drug Dosing mL/min Estimated GFR (MDRD) (>60) mL/min BUN/Creatinine Ratio (14-18) Glucose (70-99) mg/dL Calcium (8.5-10.1) mg/dL Magnesium (1.8-2.4) mg/dL Total Bilirubin (0.2-1.0) mg/dL AST (15-37) U/L ALT (16-63) U/L Alkaline Phosphatase (46-116) U/L Total Protein (6.4-8.2) g/dl Albumin (3.4-5.0) g/dl Globulin gm/dL Albumin/Globulin Ratio (1-2) 01/24/21 01/24/21 01/24/21 Range/Units 05:33 05:33 05:33 WBC 11.39 H (4.23-9.07) K/mm3 RBC 3.56 L (4.63-6.08) M/mm3 Hgb 10.8 L (13.7-17.5) gm/dl Hct 32.7 L (40.1-51.0) % MCV 91.9 (79.0-92.2) fl MCH 30.3 (25.7-32.2) pg MCHC 33.0 (32.2-35.5) g/dl RDW Std Deviation 44.8 H (35.1-43.9) fL Plt Count 151 L (163-337) K/mm3 MPV 11.0 (9.4-12.3) fl Neut % (Auto) 60.0 (34.0-67.9) % Lymph % (Auto) 27.1 (21.8-53.1) % [place] % (Auto) 10.9 (5.3-12.2) % Eos % (Auto) 1.3 (0.8-7.0) Baso % (Auto) 0.3 (0.1-1.2) % Neut # (Auto) 6.83 H (1.78-5.38) K/mm3 Lymph # (Auto) 3.09 (1.32-3.57) K/mm3 [place] # (Auto) 1.24 H (0.30-0.82) K/mm3 Eos # (Auto) 0.15 (0.04-0.54) K/mm3 Baso # (Auto) 0.03 (0.01-0.08) K/mm3 PT 24.8 H (9.7-12.0) SECONDS INR 2.36 Sodium 139 (136-145) mEq/L Potassium 3.8 (3.5-5.1) mEq/L Chloride 105 (98-107) mEq/L Carbon Dioxide 27 (21-32) mEq/L Anion Gap 10.8 (5-15) BUN 18 (7-18) mg/dL Creatinine 1.0 (0.7-1.3) mg/dL Est Cr Clr Drug Dosing 65.79 mL/min Estimated GFR (MDRD) > 60 (>60) mL/min BUN/Creatinine Ratio 18.0 (14-18) Glucose 89 (70-99) mg/dL Calcium 8.4 L (8.5-10.1) mg/dL Magnesium 2.0 (1.8-2.4) mg/dL Total Bilirubin 1.0 (0.2-1.0) mg/dL AST 18 (15-37) U/L ALT 24 (16-63) U/L Alkaline Phosphatase 49 (46-116) U/L Total Protein 6.3 L (6.4-8.2) g/dl Albumin 3.5 (3.4-5.0) g/dl Globulin 2.8 gm/dL Albumin/Globulin Ratio 1.3 (1-2) // Range/Units 08:52 WBC (4.23-9.07) K/mm3 RBC (4.63-6.08) M/mm3 Hgb 10.6 L (13.7-17.5) gm/dl Hct 32.5 L (40.1-51.0) % MCV (79.0-92.2) fl MCH (25.7-32.2) pg MCHC (32.2-35.5) g/dl RDW Std Deviation (35.1-43.9) fL Plt Count (163-337) K/mm3 MPV (9.4-12.3) fl Neut % (Auto) (34.0-67.9) % Lymph % (Auto) (21.8-53.1) % [place] % (Auto) (5.3-12.2) % Eos % (Auto) (0.8-7.0) Baso % (Auto) (0.1-1.2) % Neut # (Auto) (1.78-5.38) K/mm3 Lymph # (Auto) (1.32-3.57) K/mm3 [place] # (Auto) (0.30-0.82) K/mm3 Eos # (Auto) (0.04-0.54) K/mm3 Baso # (Auto) (0.01-0.08) K/mm3 PT (9.7-12.0) SECONDS INR Sodium (136-145) mEq/L Potassium (3.5-5.1) mEq/L Chloride (98-107) mEq/L Carbon Dioxide (21-32) mEq/L Anion Gap (5-15) BUN (7-18) mg/dL Creatinine (0.7-1.3) mg/dL Est Cr Clr Drug Dosing mL/min Estimated GFR (MDRD) (>60) mL/min BUN/Creatinine Ratio (14-18) Glucose (70-99) mg/dL Calcium (8.5-10.1) mg/dL Magnesium (1.8-2.4) mg/dL Total Bilirubin (0.2-1.0) mg/dL AST (15-37) U/L ALT (16-63) U/L Alkaline Phosphatase (46-116) U/L Total Protein (6.4-8.2) g/dl Albumin (3.4-5.0) g/dl Globulin gm/dL Albumin/Globulin Ratio (1-2) Med Orders - Current: Current Medications Acetaminophen (Acetaminophen 325 Mg Tab) 650 mg PO Q4H PRN PRN Reason: Pain (Mild 1-3)/fever Last Admin: 01/23/21 21:51 Dose: 650 mg Documented by: Albuterol (Albuterol 6.7 Gm Inhaler) 0 gm INH Q4H PRN PRN Reason: Shortness of Breath Albuterol/Ipratropium (Albuterol/Ipratropium 3.0-0.5 Mg/3 Ml Neb Soln) 3 ml NEB QIDRT PRN PRN Reason: Shortness Of Breath/wheezing Amlodipine Besylate (Amlodipine 2.5 Mg Tab) 2.5 mg PO DAILY [facility] Last Admin: 01/24/21 08:05 Dose: 2.5 mg Documented by: Cyclobenzaprine HCl (Cyclobenzaprine 10 Mg Tab) 5 mg PO TID PRN PRN Reason: Muscle Spasm - Painful Last Admin: 01/24/21 07:30 Dose: 5 mg Documented by: Docusate Sodium (Docusate Sodium 100 Mg Cap) 100 mg PO Q12H [facility] Last Admin: 01/23/21 21:52 Dose: 100 mg Documented by: Gabapentin (Gabapentin 300 Mg Cap) 300 mg PO BEDTIME [facility] Last Admin: 01/23/21 21:52 Dose: 300 mg Documented by: Hydromorphone HCl (Hydromorphone 0.5 Mg/0.5 Ml Syringe) 0.5 mg IVPUSH Q2H PRN PRN Reason: Pain Last Admin: 01/23/21 14:09 Dose: 0.5 mg Documented by: Isosorbide Mononitrate (Isosorbide Mononitrate 60 Mg Tab.Er) 60 mg PO DAILY [facility] Last Admin: 01/24/21 08:05 Dose: 60 mg Documented by: Metoprolol Succinate (Metoprolol Succinate 25 Mg Tab.Er) 50 mg PO DAILY [facility] Last Admin: 01/24/21 08:05 Dose: 50 mg Documented by: Ondansetron HCl (Ondansetron 4 Mg/2 Ml Sdv) 4 mg IVPUSH Q6H PRN PRN Reason: Nausea Oxycodone/Acetaminophen (Acetaminophen/Oxycodone 325-5 Mg Tab) 1 tab PO Q4H PRN PRN Reason: Pain (moderate 4-6) Last Admin: 01/23/21 22:53 Dose: 1 tab Documented by: Polyethylene Glycol (Polyethylene Glycol 3350 Powder 17 Gm Packet) 17 gm PO ASDIRECTED PRN PRN Reason: Constipation Discontinued Medications Docusate Sodium (Docusate Sodium 100 Mg Cap) 100 mg PO Q12H PRN PRN Reason: Constipation Hydromorphone HCl (Hydromorphone 0.5 Mg/0.5 Ml Syringe) 0.5 mg IVPUSH ONETIME ONE Stop: 01/22/21 18:46 Last Admin: 01/22/21 19:00 Dose: 0.5 mg Documented by: Hydromorphone HCl (Hydromorphone 0.5 Mg/0.5 Ml Syringe) 0.5 mg IVPUSH ONETIME ONE Stop: 01/22/21 19:51 Last Admin: 01/22/21 20:04 Dose: 0.5 mg Documented by: Dextrose/Sodium Chloride (Dextrose 5%-Normal Saline) 1,000 mls @ 150 mls/hr IV ASDIRECTED BUBBA Lorazepam (Lorazepam 2 Mg/Ml Sdv) 1 mg IVPUSH ONETIME ONE Stop: 01/22/21 16:52 Last Admin: 01/22/21 17:50 Dose: Not Given Documented by: Metoclopramide HCl (Metoclopramide 10 Mg/2 Ml Sdv) 10 mg IVPUSH ONETIME ONE Stop: 01/22/21 16:51 Last Admin: 01/22/21 17:51 Dose: Not Given Documented by: Ondansetron HCl (Ondansetron 4 Mg/2 Ml Sdv) 4 mg IVPUSH ONETIME ONE Stop: 01/22/21 18:46 Last Admin: 01/22/21 19:00 Dose: 4 mg Documented by: - Exam General: Alert, Oriented HEENT: EOMI, Mucous Membr. Moist/[place] Neck: Supple Lungs: Clear to Auscultation, Normal Respiratory Effort Cardiovascular: Regular Rate, Regular Rhythm GI/Abdominal Exam: Soft, Non-Tender Extremities: Normal Inspection Skin: Warm, Dry, Ecchymosis Neurological: No New Focal Deficit Psy/Mental Status: Alert, Normal Affect (Extremities: Left lower extremity with edema and echhymosis distal thigh/mid calf; right lower extremity with edema and yellow vesicular blisters lateral surface) - Patient Data Lab Results Last 24 hrs: Laboratory Results - last 24 hr 01/23/21 01/23/21 01/24/21 Range/Units 09:20 16:18 00:14 WBC (4.23-9.07) K/mm3 RBC (4.63-6.08) M/mm3 Hgb 11.9 L 10.7 L (13.7-17.5) gm/dl Hct 35.6 L 32.6 L (40.1-51.0) % MCV (79.0-92.2) fl MCH (25.7-32.2) pg MCHC (32.2-35.5) g/dl RDW Std Deviation (35.1-43.9) fL Plt Count (163-337) K/mm3 MPV (9.4-12.3) fl Neut % (Auto) (34.0-67.9) % Lymph % (Auto) (21.8-53.1) % [place] % (Auto) (5.3-12.2) % Eos % (Auto) (0.8-7.0) Baso % (Auto) (0.1-1.2) % Neut # (Auto) (1.78-5.38) K/mm3 Lymph # (Auto) (1.32-3.57) K/mm3 [place] # (Auto) (0.30-0.82) K/mm3 Eos # (Auto) (0.04-0.54) K/mm3 Baso # (Auto) (0.01-0.08) K/mm3 PT 34.3 H (9.7-12.0) SECONDS INR 3.28 Sodium (136-145) mEq/L Potassium (3.5-5.1) mEq/L Chloride (98-107) mEq/L Carbon Dioxide (21-32) mEq/L Anion Gap (5-15) BUN (7-18) mg/dL Creatinine (0.7-1.3) mg/dL Est Cr Clr Drug Dosing mL/min Estimated GFR (MDRD) (>60) mL/min BUN/Creatinine Ratio (14-18) Glucose (70-99) mg/dL Calcium (8.5-10.1) mg/dL Magnesium (1.8-2.4) mg/dL Total Bilirubin (0.2-1.0) mg/dL AST (15-37) U/L ALT (16-63) U/L Alkaline Phosphatase (46-116) U/L Total Protein (6.4-8.2) g/dl Albumin (3.4-5.0) g/dl Globulin gm/dL Albumin/Globulin Ratio (1-2) 01/24/21 01/24/21 01/24/21 Range/Units 05:33 05:33 05:33 WBC 11.39 H (4.23-9.07) K/mm3 RBC 3.56 L (4.63-6.08) M/mm3 Hgb 10.8 L (13.7-17.5) gm/dl Hct 32.7 L (40.1-51.0) % MCV 91.9 (79.0-92.2) fl MCH 30.3 (25.7-32.2) pg MCHC 33.0 (32.2-35.5) g/dl RDW Std Deviation 44.8 H (35.1-43.9) fL Plt Count 151 L (163-337) K/mm3 MPV 11.0 (9.4-12.3) fl Neut % (Auto) 60.0 (34.0-67.9) % Lymph % (Auto) 27.1 (21.8-53.1) % [place] % (Auto) 10.9 (5.3-12.2) % Eos % (Auto) 1.3 (0.8-7.0) Baso % (Auto) 0.3 (0.1-1.2) % Neut # (Auto) 6.83 H (1.78-5.38) K/mm3 Lymph # (Auto) 3.09 (1.32-3.57) K/mm3 [place] # (Auto) 1.24 H (0.30-0.82) K/mm3 Eos # (Auto) 0.15 (0.04-0.54) K/mm3 Baso # (Auto) 0.03 (0.01-0.08) K/mm3 PT 24.8 H (9.7-12.0) SECONDS INR 2.36 Sodium 139 (136-145) mEq/L Potassium 3.8 (3.5-5.1) mEq/L Chloride 105 (98-107) mEq/L Carbon Dioxide 27 (21-32) mEq/L Anion Gap 10.8 (5-15) BUN 18 (7-18) mg/dL Creatinine 1.0 (0.7-1.3) mg/dL Est Cr Clr Drug Dosing 65.79 mL/min Estimated GFR (MDRD) > 60 (>60) mL/min BUN/Creatinine Ratio 18.0 (14-18) Glucose 89 (70-99) mg/dL Calcium 8.4 L (8.5-10.1) mg/dL Magnesium 2.0 (1.8-2.4) mg/dL Total Bilirubin 1.0 (0.2-1.0) mg/dL AST 18 (15-37) U/L ALT 24 (16-63) U/L Alkaline Phosphatase 49 (46-116) U/L Total Protein 6.3 L (6.4-8.2) g/dl Albumin 3.5 (3.4-5.0) g/dl Globulin 2.8 gm/dL Albumin/Globulin Ratio 1.3 (1-2) / Range/Units 08:52 WBC (4.23-9.07) K/mm3 RBC (4.63-6.08) M/mm3 Hgb 10.6 L (13.7-17.5) gm/dl Hct 32.5 L (40.1-51.0) % MCV (79.0-92.2) fl MCH (25.7-32.2) pg MCHC (32.2-35.5) g/dl RDW Std Deviation (35.1-43.9) fL Plt Count (163-337) K/mm3 MPV (9.4-12.3) fl Neut % (Auto) (34.0-67.9) % Lymph % (Auto) (21.8-53.1) % [place] % (Auto) (5.3-12.2) % Eos % (Auto) (0.8-7.0) Baso % (Auto) (0.1-1.2) % Neut # (Auto) (1.78-5.38) K/mm3 Lymph # (Auto) (1.32-3.57) K/mm3 [place] # (Auto) (0.30-0.82) K/mm3 Eos # (Auto) (0.04-0.54) K/mm3 Baso # (Auto) (0.01-0.08) K/mm3 PT (9.7-12.0) SECONDS INR Sodium (136-145) mEq/L Potassium (3.5-5.1) mEq/L Chloride (98-107) mEq/L Carbon Dioxide (21-32) mEq/L Anion Gap (5-15) BUN (7-18) mg/dL Creatinine (0.7-1.3) mg/dL Est Cr Clr Drug Dosing mL/min Estimated GFR (MDRD) (>60) mL/min BUN/Creatinine Ratio (14-18) Glucose (70-99) mg/dL Calcium (8.5-10.1) mg/dL Magnesium (1.8-2.4) mg/dL Total Bilirubin (0.2-1.0) mg/dL AST (15-37) U/L ALT (16-63) U/L Alkaline Phosphatase (46-116) U/L Total Protein (6.4-8.2) g/dl Albumin (3.4-5.0) g/dl Globulin gm/dL Albumin/Globulin Ratio (1-2) Result Diagrams: 01/24/21 08:52 01/24/21 05:33 Sepsis Event Note - Evaluation Sepsis Screening Result: No Definite Risk - Focused Exam Vital Signs: Vital Signs Temp Pulse Resp BP Pulse Ox 01/24/21 08:05 68 115/60 01/24/21 07:56 95 01/24/21 07:30 98.2 F 68 18 115/60 95 01/24/21 03:01 98.4 F 64 12 114/78 96 01/23/21 21:49 98.4 F 66 14 113/77 96 - Problem List Review Problem List Initiated/Reviewed/Updated: Yes - My Orders Last 24 Hours: My Active Orders 01/23/21 19:29 Cyclobenzaprine [Flexeril] 5 mg PO TID PRN 01/24/21 07:36 Patient Status [ADT] Routine 01/24/21 09:28 Add On Test [COMM] Routine 01/24/21 09:31 Lower Leg w wo Cont Bi [CT] Routine - Assessment Assessment:: Assessment - 01/23/2021 (admitted evening of 01/22/2021) * 71-year male who presents to our ED on the evening of 01/22/2021 after workplace injury at the [place] * History of proximal A. fib, chronic anticoagulation on Coumadin, HLD, HTN, TN with 2 stents placed, COPD, arthritis, chronic back pain, osteoarthritis * Struck by a ball and slammed into a steel chacon fence. * Struck on the left side which resulted in right lower extremity and hip pain * On Coumadin for proximal A. fib and is noted to have significant hematomas over the lateral left knee and left calf * Hematomas noted to the right calf and contusion of the right hip * Was able to walk initially after the injury * Denies any rib pain, shoulder pain, head or neck pain. He does have chronic low back pain but states that that is stable. * Bystanders did apply ice packs and those are present on ED arrival. * 12-lead EKG is obtained showing a sinus rhythm at 60 bpm with left axis deviation. Consider left atrial hypertrophy. There are near Q waves in V1 and V2 and Q waves noted in inferior leads. Tall R waves are noted in lead I. There is abnormal R wave progression with delayed transition and T wave inversion in leads V1 through V4 with flattening in V5 and V6. * Labs are obtained: * WBC of 9.01. * Hemoglobin 14.0. Hematocrit 41.3. * Platelet 153,000. * Neutrophils are 71.6%. * INR 2.98. * Sodium 141. * Potassium 3.6. * Chloride 108. * Carbon dioxide 24. * Anion gap 12.6. * BUN is 18. Creatinine 1.0. GFR greater than 60. * Glucose 165. * Calcium 8.4. * Total bilirubin 1.0. * AST is 22, ALT 34, alkaline phosphatase 62. * Protein is 6.7. * Albumin 3.9. * SARS-CoV-2 RNA is negative. * Left tibia-fibula x-ray was obtained showing soft tissue swelling and no acute bony abnormality. * Right femur x-rays obtained showing findings as noted above but no acute abnormality. * Formal read of the right tibia and fibula are pending however ED provider notes hairline nondisplaced fracture of the proximal right fibula with slight bowing of the fibula. * Noted to be unable to bear weight in the ED. * Given Dilaudid, lorazepam, Zofran, and metoclopramide in the ED for pain and nausea. He started on D5 NS. * Admitted to the medical floor for further management of his pain from hematoma and fracture. PLAN: Fracture of proximal end of right fibula Contusion of left lower extremity Contusion of right hip, initial encounter Contusion of right lower leg, initial encounter * CBC, CMP, Magnesium, INR today * Q8Hr H/H * Daily labs * Weightbearing as tolerated lower extremities * Monitor bilateral lower extremity pulses at least BID * Contacted Dr. Gaitan, on-call orthopedics within [facility] in [place]. * Recommended compression stockings bilaterally * WBAT * Monitor for compartment syndrome * Follow-up with orthopedics within 10-14 days of discharge * PT/OT * CM/SW consult * Pain medications as ordered * O2 as needed to keep saturations >90% * BID colace for constipation/narcotic use Paroxysmal atrial fibrillation Chronic anticoagulation History of TN (myocardial infarction) History of heart artery stent * Hold ASA and warfarin today per Dr. Mejia * Daily INR * Consider resumption of ASA/Aspirin tomorrow * Telemetry Arthritis Chronic back pain Osteoarthritis * Pain medications as ordered * PT/OT * No acute concerns HLD (hyperlipidemia) * No acute concerns * Hold home statin for now HTN (hypertension) * No acute concerns * Monitor vital signs * Home BP meds as ordered COPD (chronic obstructive pulmonary disease) * No acute concerns * Home albuterol MDI PRN * Duonebs if needed * Continue to monitor For 01/24 -still having lower extremity pain -check CK -monitor for compartment syndrome -check CT of lower extremities -hold aspirin -hold warfarin -serial hgb Code status: Full code PCP: Dr. Madelin Rincon at [facility] in [place]. DVT prophylaxis: Home warfarin held today due to bleeding risk with INR therapeutic Disposition: Patient admitted to medical floor for further pain control and PT OT due to femur fracture and significant hematomas. Likely discharge in 1-2 days pending PT/OT evaluation and pain control. - Plan Plan:: Assessment - 01/23/2021 (admitted evening of 01/22/2021) * 71-year male who presents to our ED on the evening of 01/22/2021 after workplace injury at the [employer] [place] * History of proximal A. fib, chronic anticoagulation on Coumadin, HLD, HTN, TN with 2 stents placed, COPD, arthritis, chronic back pain, osteoarthritis * Struck by a ball and slammed into a steel chacon fence. * Struck on the left side which resulted in right lower extremity and hip pain * On Coumadin for proximal A. fib and is noted to have significant hematomas over the lateral left knee and left calf * Hematomas noted to the right calf and contusion of the right hip * Was able to walk initially after the injury * Denies any rib pain, shoulder pain, head or neck pain. He does have chronic low back pain but states that that is stable. * Bystanders did apply ice packs and those are present on ED arrival. * 12-lead EKG is obtained showing a sinus rhythm at 60 bpm with left axis deviation. Consider left atrial hypertrophy. There are near Q waves in V1 and V2 and Q waves noted in inferior leads. Tall R waves are noted in lead I. There is abnormal R wave progression with delayed transition and T wave inversion in leads V1 through V4 with flattening in V5 and V6. * Labs are obtained: * WBC of 9.01. * Hemoglobin 14.0. Hematocrit 41.3. * Platelet 153,000. * Neutrophils are 71.6%. * INR 2.98. * Sodium 141. * Potassium 3.6. * Chloride 108. * Carbon dioxide 24. * Anion gap 12.6. * BUN is 18. Creatinine 1.0. GFR greater than 60. * Glucose 165. * Calcium 8.4. * Total bilirubin 1.0. * AST is 22, ALT 34, alkaline phosphatase 62. * Protein is 6.7. * Albumin 3.9. * SARS-CoV-2 RNA is negative. * Left tibia-fibula x-ray was obtained showing soft tissue swelling and no acute bony abnormality. * Right femur x-rays obtained showing findings as noted above but no acute abnormality. * Formal read of the right tibia and fibula are pending however ED provider notes hairline nondisplaced fracture of the proximal right fibula with slight bowing of the fibula. * Noted to be unable to bear weight in the ED. * Given Dilaudid, lorazepam, Zofran, and metoclopramide in the ED for pain and nausea. He started on D5 NS. * Admitted to the medical floor for further management of his pain from hematoma and fracture. PLAN: Fracture of proximal end of right fibula Contusion of left lower extremity Contusion of right hip, initial encounter Contusion of right lower leg, initial encounter * CBC, CMP, Magnesium, INR today * Q8Hr H/H * Daily labs * Weightbearing as tolerated lower extremities * Monitor bilateral lower extremity pulses at least BID * Contacted Dr. Gaitan, on-call orthopedics within [facility] in [place]. * Recommended compression stockings bilaterally * WBAT * Monitor for compartment syndrome * Follow-up with orthopedics within 10-14 days of discharge * PT/OT * CM/SW consult * Pain medications as ordered * O2 as needed to keep saturations >90% * BID colace for constipation/narcotic use Paroxysmal atrial fibrillation Chronic anticoagulation History of TN (myocardial infarction) History of heart artery stent * Hold ASA and warfarin today per Dr. Mejia * Daily INR * Consider resumption of ASA/Aspirin tomorrow * Telemetry Arthritis Chronic back pain Osteoarthritis * Pain medications as ordered * PT/OT * No acute concerns HLD (hyperlipidemia) * No acute concerns * Hold home statin for now HTN (hypertension) * No acute concerns * Monitor vital signs * Home BP meds as ordered COPD (chronic obstructive pulmonary disease) * No acute concerns * Home albuterol MDI PRN * Duonebs if needed * Continue to monitor Code status: Full code PCP: Dr. Madelin Rincon at [facility] in [place]. DVT prophylaxis: Home warfarin held today due to bleeding risk with INR therapeutic (Consider resumption tomorrow) Disposition: Patient admitted to medical floor for further pain control and PT OT due to femur fracture and significant hematomas. Upgraded to telemetry given cardiac history. Likely discharge in 1-2 days pending PT/OT evaluation and pain control.
[2021-01-24] MEDS: HYDROmorphone 0.5 MG/0.5 ML Syringe IVPUSH PRN ×2 (10:01→14:16)
[2021-01-24] MEDS: Docusate Sodium 100 MG Cap PO SCH ×2 (10:01→20:51)
[2021-01-24] MEDS: Acetaminophen/oxyCODONE 325-5 MG Tab PO PRN (12:00)
[2021-01-24] MEDS: Acetaminophen 325 MG Tab PO SCH ×2 (15:21→20:51)
[2021-01-24] MEDS: oxyCODONE 5 MG Tab PO PRN (18:45)
[2021-01-24] MEDS: HYDROmorphone 1 MG/ML Syringe IVPUSH PRN (18:47)
[2021-01-24] MEDS: Cyclobenzaprine 10 MG Tab PO SCH (20:50)
[2021-01-24] MEDS: Gabapentin 300 MG Cap PO SCH (20:51)
[2021-01-25] MEDS: oxyCODONE 5 MG Tab PO PRN ×5 (03:50→21:39)
[2021-01-25] MEDS ORDERED: Lactated Ringers 500 ML IV ONE (07:45)
[2021-01-25] MEDS: Cyclobenzaprine 10 MG Tab PO SCH ×3 (08:00→20:18)
[2021-01-25] MEDS: amLODIPine 2.5 MG Tab PO SCH (08:03)
[2021-01-25] MEDS: Acetaminophen 325 MG Tab PO SCH ×3 (08:04→20:19)
[2021-01-25] MEDS: Metoprolol Succinate 25 MG Tab.ER PO SCH (08:07)
[2021-01-25] MEDS: Isosorbide Mononitrate 60 MG Tab.ER PO SCH (08:07)
--- NOTE | 2021-01-25 09:02 | CT ---
CT bilateral lower extremities Technique: Multiple axial sections were obtained through the both tibia and fibula from above the knee inferiorly to the ankle. Reconstructed coronal and sagittal images were obtained. Comparison: Prior bilateral tibia and fibula study performed on 01/22/21. Findings: Soft tissue swelling is seen within the subcutaneous tissues on both sides. No discrete muscle abnormality is appreciated. Very slight degenerative change is seen within the right patellofemoral joint. No acute fracture is seen within the right tibia or fibula. No focal fluid collections are seen. Very slight vascular calcification is noted on both sides. Impression: 1. Incidental findings as noted above. 2. Nothing acute is seen on CT study of bilateral tibia and fibula. Diagnostic code #2 I agree with preliminary report from [facility], finalized on 01/24/21, 3:23 PM Central Daylight Time, code 1
[2021-01-25] MEDS: HYDROmorphone 1 MG/ML Syringe IVPUSH PRN ×3 (10:01→16:37)
[2021-01-25] MEDS: Docusate Sodium 100 MG Cap PO SCH ×2 (10:01→21:39)
--- NOTE | 2021-01-25 12:07 | PCM.PN ---
- General Info Date of Service: 01/25/21 Admission Dx/Problem (Free Text): Admission Diagnosis/Problem Admission Diagnosis/Problem Hematoma and contusion Functional Status: Reports: Tolerating Diet - Review of Systems General: Reports: No Symptoms HEENT: Reports: No Symptoms Pulmonary: Reports: No Symptoms Cardiovascular: Reports: No Symptoms Gastrointestinal: Reports: No Symptoms Musculoskeletal: Reports: Leg Pain, Joint Pain Neurological: Reports: No Symptoms - Patient Data Vitals - Most Recent: Last Vital Signs Temp 99.3 F 01/25/21 07:57 Pulse 74 01/25/21 08:07 Resp 20 01/25/21 07:57 BP 134/73 01/25/21 08:07 Pulse Ox 94 L 01/25/21 07:57 Weight - Most Recent: 258 lb 4.8 oz I&O - Last 24 Hours: Intake & Output 01/24/21 01/25/21 01/25/21 22:59 06:59 14:59 Intake Total 1020 700 Output Total 700 975 Balance 320 -275 Lab Results Last 24 Hours: Laboratory Results - last 24 hr 01/24/21 01/24/21 01/24/21 Range/Units 14:11 14:11 21:55 WBC (4.23-9.07) K/mm3 RBC (4.63-6.08) M/mm3 Hgb 9.8 L 9.3 L (13.7-17.5) gm/dl Hct (40.1-51.0) % MCV (79.0-92.2) fl MCH (25.7-32.2) pg MCHC (32.2-35.5) g/dl RDW Std Deviation (35.1-43.9) fL Plt Count (163-337) K/mm3 MPV (9.4-12.3) fl Neut % (Auto) (34.0-67.9) % Lymph % (Auto) (21.8-53.1) % [place] % (Auto) (5.3-12.2) % Eos % (Auto) (0.8-7.0) Baso % (Auto) (0.1-1.2) % Neut # (Auto) (1.78-5.38) K/mm3 Lymph # (Auto) (1.32-3.57) K/mm3 [place] # (Auto) (0.30-0.82) K/mm3 Eos # (Auto) (0.04-0.54) K/mm3 Baso # (Auto) (0.01-0.08) K/mm3 Manual Slide Review PT (9.7-12.0) SECONDS INR Sodium (136-145) mEq/L Potassium (3.5-5.1) mEq/L Chloride (98-107) mEq/L Carbon Dioxide (21-32) mEq/L Anion Gap (5-15) BUN (7-18) mg/dL Creatinine (0.7-1.3) mg/dL Est Cr Clr Drug Dosing mL/min Estimated GFR (MDRD) (>60) mL/min BUN/Creatinine Ratio (14-18) Glucose (70-99) mg/dL Calcium (8.5-10.1) mg/dL Magnesium (1.8-2.4) mg/dL Total Bilirubin (0.2-1.0) mg/dL AST (15-37) U/L ALT (16-63) U/L Alkaline Phosphatase (46-116) U/L Creatine Kinase 473 H (39-308) U/L Total Protein (6.4-8.2) g/dl Albumin (3.4-5.0) g/dl Globulin gm/dL Albumin/Globulin Ratio (1-2) Blood Type Gel Antibody Screen 01/24/21 01/25/21 01/25/21 Range/Units 21:55 04:50 04:50 WBC 14.08 H (4.23-9.07) K/mm3 RBC 3.08 L (4.63-6.08) M/mm3 Hgb 9.2 L (13.7-17.5) gm/dl Hct 28.3 L (40.1-51.0) % MCV 91.9 (79.0-92.2) fl MCH 29.9 (25.7-32.2) pg MCHC 32.5 (32.2-35.5) g/dl RDW Std Deviation 44.2 H (35.1-43.9) fL Plt Count 162 L (163-337) K/mm3 MPV 10.8 (9.4-12.3) fl Neut % (Auto) 58.8 (34.0-67.9) % Lymph % (Auto) 28.1 (21.8-53.1) % [place] % (Auto) 11.5 (5.3-12.2) % Eos % (Auto) 0.6 L (0.8-7.0) Baso % (Auto) 0.4 (0.1-1.2) % Neut # (Auto) 8.29 H (1.78-5.38) K/mm3 Lymph # (Auto) 3.95 H (1.32-3.57) K/mm3 [place] # (Auto) 1.62 H (0.30-0.82) K/mm3 Eos # (Auto) 0.09 (0.04-0.54) K/mm3 Baso # (Auto) 0.05 (0.01-0.08) K/mm3 Manual Slide Review Normal smear PT (9.7-12.0) SECONDS INR Sodium 139 (136-145) mEq/L Potassium 3.8 (3.5-5.1) mEq/L Chloride 103 (98-107) mEq/L Carbon Dioxide 27 (21-32) mEq/L Anion Gap 12.8 (5-15) BUN 18 (7-18) mg/dL Creatinine 1.0 (0.7-1.3) mg/dL Est Cr Clr Drug Dosing 65.79 mL/min Estimated GFR (MDRD) > 60 (>60) mL/min BUN/Creatinine Ratio 18.0 (14-18) Glucose 98 (70-99) mg/dL Calcium 8.4 L (8.5-10.1) mg/dL Magnesium 2.0 (1.8-2.4) mg/dL Total Bilirubin 1.0 (0.2-1.0) mg/dL AST 25 (15-37) U/L ALT 25 (16-63) U/L Alkaline Phosphatase 43 L (46-116) U/L Creatine Kinase 496 H (39-308) U/L Total Protein 6.3 L (6.4-8.2) g/dl Albumin 3.5 (3.4-5.0) g/dl Globulin 2.8 gm/dL Albumin/Globulin Ratio 1.3 (1-2) Blood Type Gel Antibody Screen 01/25/21 01/25/21 01/25/21 Range/Units 04:50 04:50 09:26 WBC (4.23-9.07) K/mm3 RBC (4.63-6.08) M/mm3 Hgb (13.7-17.5) gm/dl Hct (40.1-51.0) % MCV (79.0-92.2) fl MCH (25.7-32.2) pg MCHC (32.2-35.5) g/dl RDW Std Deviation (35.1-43.9) fL Plt Count (163-337) K/mm3 MPV (9.4-12.3) fl Neut % (Auto) (34.0-67.9) % Lymph % (Auto) (21.8-53.1) % [place] % (Auto) (5.3-12.2) % Eos % (Auto) (0.8-7.0) Baso % (Auto) (0.1-1.2) % Neut # (Auto) (1.78-5.38) K/mm3 Lymph # (Auto) (1.32-3.57) K/mm3 [place] # (Auto) (0.30-0.82) K/mm3 Eos # (Auto) (0.04-0.54) K/mm3 Baso # (Auto) (0.01-0.08) K/mm3 Manual Slide Review PT 15.6 H D (9.7-12.0) SECONDS INR 1.47 Sodium (136-145) mEq/L Potassium (3.5-5.1) mEq/L Chloride (98-107) mEq/L Carbon Dioxide (21-32) mEq/L Anion Gap (5-15) BUN (7-18) mg/dL Creatinine (0.7-1.3) mg/dL Est Cr Clr Drug Dosing mL/min Estimated GFR (MDRD) (>60) mL/min BUN/Creatinine Ratio (14-18) Glucose (70-99) mg/dL Calcium (8.5-10.1) mg/dL Magnesium (1.8-2.4) mg/dL Total Bilirubin (0.2-1.0) mg/dL AST (15-37) U/L ALT (16-63) U/L Alkaline Phosphatase (46-116) U/L Creatine Kinase 553 H (39-308) U/L Total Protein (6.4-8.2) g/dl Albumin (3.4-5.0) g/dl Globulin gm/dL Albumin/Globulin Ratio (1-2) Blood Type O POSITIVE Gel Antibody Screen Negative Med Orders - Current: Current Medications Acetaminophen (Acetaminophen 325 Mg Tab) 650 mg PO TID [facility] Last Admin: 01/25/21 08:04 Dose: 650 mg Documented by: Albuterol (Albuterol 6.7 Gm Inhaler) 0 gm INH Q4H PRN PRN Reason: Shortness of Breath Albuterol/Ipratropium (Albuterol/Ipratropium 3.0-0.5 Mg/3 Ml Neb Soln) 3 ml NEB QIDRT PRN PRN Reason: Shortness Of Breath/wheezing Amlodipine Besylate (Amlodipine 2.5 Mg Tab) 2.5 mg PO DAILY [facility] Last Admin: 01/25/21 08:03 Dose: 2.5 mg Documented by: Cyclobenzaprine HCl (Cyclobenzaprine 10 Mg Tab) 10 mg PO TID [facility] Last Admin: 01/25/21 08:00 Dose: 10 mg Documented by: Docusate Sodium (Docusate Sodium 100 Mg Cap) 100 mg PO Q12H [facility] Last Admin: 01/25/21 10:01 Dose: 100 mg Documented by: Gabapentin (Gabapentin 300 Mg Cap) 300 mg PO BEDTIME [facility] Last Admin: 01/24/21 20:51 Dose: 300 mg Documented by: Hydromorphone HCl (Hydromorphone 1 Mg/Ml Syringe) 1 mg IVPUSH Q1H PRN PRN Reason: Pain (severe 7-10) Last Admin: 01/25/21 10:01 Dose: 1 mg Documented by: Isosorbide Mononitrate (Isosorbide Mononitrate 60 Mg Tab.Er) 60 mg PO DAILY [facility] Last Admin: 01/25/21 08:07 Dose: 60 mg Documented by: Metoprolol Succinate (Metoprolol Succinate 25 Mg Tab.Er) 50 mg PO DAILY [facility] Last Admin: 01/25/21 08:07 Dose: 50 mg Documented by: Ondansetron HCl (Ondansetron 4 Mg/2 Ml Sdv) 4 mg IVPUSH Q6H PRN PRN Reason: Nausea Oxycodone HCl (Oxycodone 5 Mg Tab) 5 - 10 mg PO Q4H PRN PRN Reason: Pain Last Admin: 01/25/21 08:05 Dose: 10 mg Documented by: Polyethylene Glycol (Polyethylene Glycol 3350 Powder 17 Gm Packet) 17 gm PO ASDIRECTED PRN PRN Reason: Constipation Last Admin: 01/25/21 08:18 Dose: 17 gm Documented by: Discontinued Medications Acetaminophen (Acetaminophen 325 Mg Tab) 650 mg PO Q4H PRN PRN Reason: Pain (Mild 1-3)/fever Last Admin: 01/23/21 21:51 Dose: 650 mg Documented by: Cyclobenzaprine HCl (Cyclobenzaprine 10 Mg Tab) 5 mg PO TID PRN PRN Reason: Muscle Spasm - Painful Last Admin: 01/24/21 14:16 Dose: 5 mg Documented by: Docusate Sodium (Docusate Sodium 100 Mg Cap) 100 mg PO Q12H PRN PRN Reason: Constipation Hydromorphone HCl (Hydromorphone 0.5 Mg/0.5 Ml Syringe) 0.5 mg IVPUSH ONETIME ONE Stop: 01/22/21 18:46 Last Admin: 01/22/21 19:00 Dose: 0.5 mg Documented by: Hydromorphone HCl (Hydromorphone 0.5 Mg/0.5 Ml Syringe) 0.5 mg IVPUSH ONETIME ONE Stop: 01/22/21 19:51 Last Admin: 01/22/21 20:04 Dose: 0.5 mg Documented by: Hydromorphone HCl (Hydromorphone 0.5 Mg/0.5 Ml Syringe) 0.5 mg IVPUSH Q2H PRN PRN Reason: Pain Last Admin: 01/24/21 14:16 Dose: 0.5 mg Documented by: Dextrose/Sodium Chloride (Dextrose 5%-Normal Saline) 1,000 mls @ 150 mls/hr IV ASDIRECTED BUBBA Lactated Ringer's (Ringers, Lactated) 500 mls @ 250 mls/hr IV ONETIME ONE Stop: 01/25/21 09:44 Last Admin: 01/25/21 07:52 Dose: 250 mls/hr Documented by: Lorazepam (Lorazepam 2 Mg/Ml Sdv) 1 mg IVPUSH ONETIME ONE Stop: 01/22/21 16:52 Last Admin: 01/22/21 17:50 Dose: Not Given Documented by: Metoclopramide HCl (Metoclopramide 10 Mg/2 Ml Sdv) 10 mg IVPUSH ONETIME ONE Stop: 01/22/21 16:51 Last Admin: 01/22/21 17:51 Dose: Not Given Documented by: Ondansetron HCl (Ondansetron 4 Mg/2 Ml Sdv) 4 mg IVPUSH ONETIME ONE Stop: 01/22/21 18:46 Last Admin: 01/22/21 19:00 Dose: 4 mg Documented by: Oxycodone/Acetaminophen (Acetaminophen/Oxycodone 325-5 Mg Tab) 1 tab PO Q4H PRN PRN Reason: Pain (moderate 4-6) Last Admin: 01/24/21 12:00 Dose: 1 tab Documented by: - Exam General: Alert, Oriented HEENT: EOMI Neck: Supple Lungs: Clear to Auscultation, Normal Respiratory Effort Cardiovascular: Regular Rate, Regular Rhythm GI/Abdominal Exam: Soft, Non-Tender Extremities: Other (Right lower extremity with ecchymosis; edema; superficial yellow blistering; mild erythema) Skin: Warm, Dry, Ecchymosis Neurological: No New Focal Deficit Psy/Mental Status: Alert, Normal Affect - Patient Data Lab Results Last 24 hrs: Laboratory Results - last 24 hr 01/24/21 01/24/21 01/24/21 Range/Units 14:11 14:11 21:55 WBC (4.23-9.07) K/mm3 RBC (4.63-6.08) M/mm3 Hgb 9.8 L 9.3 L (13.7-17.5) gm/dl Hct (40.1-51.0) % MCV (79.0-92.2) fl MCH (25.7-32.2) pg MCHC (32.2-35.5) g/dl RDW Std Deviation (35.1-43.9) fL Plt Count (163-337) K/mm3 MPV (9.4-12.3) fl Neut % (Auto) (34.0-67.9) % Lymph % (Auto) (21.8-53.1) % [place] % (Auto) (5.3-12.2) % Eos % (Auto) (0.8-7.0) Baso % (Auto) (0.1-1.2) % Neut # (Auto) (1.78-5.38) K/mm3 Lymph # (Auto) (1.32-3.57) K/mm3 [place] # (Auto) (0.30-0.82) K/mm3 Eos # (Auto) (0.04-0.54) K/mm3 Baso # (Auto) (0.01-0.08) K/mm3 Manual Slide Review PT (9.7-12.0) SECONDS INR Sodium (136-145) mEq/L Potassium (3.5-5.1) mEq/L Chloride (98-107) mEq/L Carbon Dioxide (21-32) mEq/L Anion Gap (5-15) BUN (7-18) mg/dL Creatinine (0.7-1.3) mg/dL Est Cr Clr Drug Dosing mL/min Estimated GFR (MDRD) (>60) mL/min BUN/Creatinine Ratio (14-18) Glucose (70-99) mg/dL Calcium (8.5-10.1) mg/dL Magnesium (1.8-2.4) mg/dL Total Bilirubin (0.2-1.0) mg/dL AST (15-37) U/L ALT (16-63) U/L Alkaline Phosphatase (46-116) U/L Creatine Kinase 473 H (39-308) U/L Total Protein (6.4-8.2) g/dl Albumin (3.4-5.0) g/dl Globulin gm/dL Albumin/Globulin Ratio (1-2) Blood Type Gel Antibody Screen 01/24/21 01/25/21 01/25/21 Range/Units 21:55 04:50 04:50 WBC 14.08 H (4.23-9.07) K/mm3 RBC 3.08 L (4.63-6.08) M/mm3 Hgb 9.2 L (13.7-17.5) gm/dl Hct 28.3 L (40.1-51.0) % MCV 91.9 (79.0-92.2) fl MCH 29.9 (25.7-32.2) pg MCHC 32.5 (32.2-35.5) g/dl RDW Std Deviation 44.2 H (35.1-43.9) fL Plt Count 162 L (163-337) K/mm3 MPV 10.8 (9.4-12.3) fl Neut % (Auto) 58.8 (34.0-67.9) % Lymph % (Auto) 28.1 (21.8-53.1) % [place] % (Auto) 11.5 (5.3-12.2) % Eos % (Auto) 0.6 L (0.8-7.0) Baso % (Auto) 0.4 (0.1-1.2) % Neut # (Auto) 8.29 H (1.78-5.38) K/mm3 Lymph # (Auto) 3.95 H (1.32-3.57) K/mm3 [place] # (Auto) 1.62 H (0.30-0.82) K/mm3 Eos # (Auto) 0.09 (0.04-0.54) K/mm3 Baso # (Auto) 0.05 (0.01-0.08) K/mm3 Manual Slide Review Normal smear PT (9.7-12.0) SECONDS INR Sodium 139 (136-145) mEq/L Potassium 3.8 (3.5-5.1) mEq/L Chloride 103 (98-107) mEq/L Carbon Dioxide 27 (21-32) mEq/L Anion Gap 12.8 (5-15) BUN 18 (7-18) mg/dL Creatinine 1.0 (0.7-1.3) mg/dL Est Cr Clr Drug Dosing 65.79 mL/min Estimated GFR (MDRD) > 60 (>60) mL/min BUN/Creatinine Ratio 18.0 (14-18) Glucose 98 (70-99) mg/dL Calcium 8.4 L (8.5-10.1) mg/dL Magnesium 2.0 (1.8-2.4) mg/dL Total Bilirubin 1.0 (0.2-1.0) mg/dL AST 25 (15-37) U/L ALT 25 (16-63) U/L Alkaline Phosphatase 43 L (46-116) U/L Creatine Kinase 496 H (39-308) U/L Total Protein 6.3 L (6.4-8.2) g/dl Albumin 3.5 (3.4-5.0) g/dl Globulin 2.8 gm/dL Albumin/Globulin Ratio 1.3 (1-2) Blood Type Gel Antibody Screen 01/25/21 01/25/21 01/25/21 Range/Units 04:50 04:50 09:26 WBC (4.23-9.07) K/mm3 RBC (4.63-6.08) M/mm3 Hgb (13.7-17.5) gm/dl Hct (40.1-51.0) % MCV (79.0-92.2) fl MCH (25.7-32.2) pg MCHC (32.2-35.5) g/dl RDW Std Deviation (35.1-43.9) fL Plt Count (163-337) K/mm3 MPV (9.4-12.3) fl Neut % (Auto) (34.0-67.9) % Lymph % (Auto) (21.8-53.1) % [place] % (Auto) (5.3-12.2) % Eos % (Auto) (0.8-7.0) Baso % (Auto) (0.1-1.2) % Neut # (Auto) (1.78-5.38) K/mm3 Lymph # (Auto) (1.32-3.57) K/mm3 [place] # (Auto) (0.30-0.82) K/mm3 Eos # (Auto) (0.04-0.54) K/mm3 Baso # (Auto) (0.01-0.08) K/mm3 Manual Slide Review PT 15.6 H D (9.7-12.0) SECONDS INR 1.47 Sodium (136-145) mEq/L Potassium (3.5-5.1) mEq/L Chloride (98-107) mEq/L Carbon Dioxide (21-32) mEq/L Anion Gap (5-15) BUN (7-18) mg/dL Creatinine (0.7-1.3) mg/dL Est Cr Clr Drug Dosing mL/min Estimated GFR (MDRD) (>60) mL/min BUN/Creatinine Ratio (14-18) Glucose (70-99) mg/dL Calcium (8.5-10.1) mg/dL Magnesium (1.8-2.4) mg/dL Total Bilirubin (0.2-1.0) mg/dL AST (15-37) U/L ALT (16-63) U/L Alkaline Phosphatase (46-116) U/L Creatine Kinase 553 H (39-308) U/L Total Protein (6.4-8.2) g/dl Albumin (3.4-5.0) g/dl Globulin gm/dL Albumin/Globulin Ratio (1-2) Blood Type O POSITIVE Gel Antibody Screen Negative Result Diagrams: 01/25/21 04:50 01/25/21 04:50 Sepsis Event Note - Evaluation Sepsis Screening Result: No Definite Risk - Focused Exam Vital Signs: Vital Signs Temp Pulse Resp BP Pulse Ox 01/25/21 08:07 74 134/73 01/25/21 08:03 134/73 01/25/21 07:57 99.3 F 74 20 134/73 94 L 01/25/21 03:46 98.4 F 71 18 114/83 95 - Problem List Review Problem List Initiated/Reviewed/Updated: Yes - My Orders Last 24 Hours: My Active Orders 01/24/21 12:07 Lower Leg w Cont Lt [CT] Routine 01/24/21 15:00 Acetaminophen [TylenoL] 650 mg PO TID 01/24/21 15:08 HYDROmorphone [Dilaudid] 1 mg IVPUSH Q1H PRN 01/24/21 15:09 oxyCODONE 5 - 10 mg PO Q4H PRN 01/24/21 21:00 Cyclobenzaprine [Flexeril] 10 mg PO TID 01/25/21 08:37 Extremity Non Vascular Rt [US] Routine 01/25/21 10:20 PATIENT RETYPE [BBK] Routine 01/25/21 12:15 cefTRIAXone [Rocephin] 1 gm Sodium Chloride 0.9% [Normal Saline] 100 ml IV Q24H - Assessment Assessment:: Assessment - 01/23/2021 (admitted evening of 01/22/2021) * 71-year male who presents to our ED on the evening of 01/22/2021 after workplace injury at the [employer] yard * History of proximal A. fib, chronic anticoagulation on Coumadin, HLD, HTN, AL with 2 stents placed, COPD, arthritis, chronic back pain, osteoarthritis * Struck by a ball and slammed into a steel chacon fence. * Struck on the left side which resulted in right lower extremity and hip pain * On Coumadin for proximal A. fib and is noted to have significant hematomas over the lateral left knee and left calf * Hematomas noted to the right calf and contusion of the right hip * Was able to walk initially after the injury * Denies any rib pain, shoulder pain, head or neck pain. He does have chronic low back pain but states that that is stable. * Bystanders did apply ice packs and those are present on ED arrival. * 12-lead EKG is obtained showing a sinus rhythm at 60 bpm with left axis deviation. Consider left atrial hypertrophy. There are near Q waves in V1 and V2 and Q waves noted in inferior leads. Tall R waves are noted in lead I. There is abnormal R wave progression with delayed transition and T wave inversion in leads V1 through V4 with flattening in V5 and V6. * Labs are obtained: * WBC of 9.01. * Hemoglobin 14.0. Hematocrit 41.3. * Platelet 153,000. * Neutrophils are 71.6%. * INR 2.98. * Sodium 141. * Potassium 3.6. * Chloride 108. * Carbon dioxide 24. * Anion gap 12.6. * BUN is 18. Creatinine 1.0. GFR greater than 60. * Glucose 165. * Calcium 8.4. * Total bilirubin 1.0. * AST is 22, ALT 34, alkaline phosphatase 62. * Protein is 6.7. * Albumin 3.9. * SARS-CoV-2 RNA is negative. * Left tibia-fibula x-ray was obtained showing soft tissue swelling and no acute bony abnormality. * Right femur x-rays obtained showing findings as noted above but no acute abnormality. * Formal read of the right tibia and fibula are pending however ED provider notes hairline nondisplaced fracture of the proximal right fibula with slight bowing of the fibula. * Noted to be unable to bear weight in the ED. * Given Dilaudid, lorazepam, Zofran, and metoclopramide in the ED for pain and nausea. He started on D5 NS. * Admitted to the medical floor for further management of his pain from hematoma and fracture. PLAN: Fracture of proximal end of right fibula Contusion of left lower extremity Contusion of right hip, initial encounter Contusion of right lower leg, initial encounter * CBC, CMP, Magnesium, INR today * Q8Hr H/H * Daily labs * Weightbearing as tolerated lower extremities * Monitor bilateral lower extremity pulses at least BID * Contacted Dr. Gaitan, on-call orthopedics within [facility] in [place]. * Recommended compression stockings bilaterally * WBAT * Monitor for compartment syndrome * Follow-up with orthopedics within 10-14 days of discharge * PT/OT * CM/SW consult * Pain medications as ordered * O2 as needed to keep saturations >90% * BID colace for constipation/narcotic use Paroxysmal atrial fibrillation Chronic anticoagulation History of AL (myocardial infarction) History of heart artery stent * Hold ASA and warfarin today per Dr. Mejia * Daily INR * Consider resumption of ASA/Aspirin tomorrow * Telemetry Arthritis Chronic back pain Osteoarthritis * Pain medications as ordered * PT/OT * No acute concerns HLD (hyperlipidemia) * No acute concerns * Hold home statin for now HTN (hypertension) * No acute concerns * Monitor vital signs * Home BP meds as ordered COPD (chronic obstructive pulmonary disease) * No acute concerns * Home albuterol MDI PRN * Duonebs if needed * Continue to monitor For 01/24 -still having lower extremity pain -check CK -monitor for compartment syndrome -check CT of lower extremities -hold aspirin -hold warfarin -serial hgb 01/25 -CT lower extremity showing no acute finding of Tibia and Fibula -will obtain US right lower extremity -continue to trend CK -start ceftriaxone for possible secondary early cellulitis of right lower extremity -hemoglobin trending; down transfuse to keep hgb>8 -serial hgb and CK -compartment syndrome low on differential will continue to monitory -hold aspirin and warfarin -INR now under 2.0 Code status: Full code PCP: Dr. Madelin Rincon at [facility] in [place]. DVT prophylaxis: Home warfarin held today due to bleeding risk with INR therapeutic Disposition: Patient admitted to medical floor for further pain control and PT OT due to femur fracture and significant hematomas. Likely discharge in 1-2 days pending PT/OT evaluation and pain control. - Plan Plan:: Assessment - 01/23/2021 (admitted evening of 01/22/2021) * 71-year male who presents to our ED on the evening of 01/22/2021 after wo [place] injury [place] the [place] * History of proximal A. fib, chronic anticoagulation on Coumadin, HLD, HTN, AL with 2 stents placed, COPD, arthritis, chronic back pain, osteoarthritis * Struck by a ball and slammed into a steel chacon fence. * Struck on the left side which resulted in right lower extremity and hip pain * On Coumadin for proximal A. fib and is noted to have significant hematomas over the lateral left knee and left calf * Hematomas noted to the right calf and contusion of the right hip * Was able to walk initially after the injury * Denies any rib pain, shoulder pain, head or neck pain. He does have chronic low back pain but states that that is stable. * Bystanders did apply ice packs and those are present on ED arrival. * 12-lead EKG is obtained showing a sinus rhythm at 60 bpm with left axis deviation. Consider left atrial hypertrophy. There are near Q waves in V1 and V2 and Q waves noted in inferior leads. Tall R waves are noted in lead I. There is abnormal R wave progression with delayed transition and T wave inversion in leads V1 through V4 with flattening in V5 and V6. * Labs are obtained: * WBC of 9.01. * Hemoglobin 14.0. Hematocrit 41.3. * Platelet 153,000. * Neutrophils are 71.6%. * INR 2.98. * Sodium 141. * Potassium 3.6. * Chloride 108. * Carbon dioxide 24. * Anion gap 12.6. * BUN is 18. Creatinine 1.0. GFR greater than 60. * Glucose 165. * Calcium 8.4. * Total bilirubin 1.0. * AST is 22, ALT 34, alkaline phosphatase 62. * Protein is 6.7. * Albumin 3.9. * SARS-CoV-2 RNA is negative. * Left tibia-fibula x-ray was obtained showing soft tissue swelling and no acute bony abnormality. * Right femur x-rays obtained showing findings as noted above but no acute abnormality. * Formal read of the right tibia and fibula are pending however ED provider notes hairline nondisplaced fracture of the proximal right fibula with slight bowing of the fibula. * Noted to be unable to bear weight in the ED. * Given Dilaudid, lorazepam, Zofran, and metoclopramide in the ED for pain and nausea. He started on D5 NS. * Admitted to the medical floor for further management of his pain from hematoma and fracture. PLAN: Fracture of proximal end of right fibula Contusion of left lower extremity Contusion of right hip, initial encounter Contusion of right lower leg, initial encounter * CBC, CMP, Magnesium, INR today * Q8Hr H/H * Daily labs * Weightbearing as tolerated lower extremities * Monitor bilateral lower extremity pulses at least BID * Contacted Dr. Gaitan, on-call orthopedics within [facility] in [place]. * Recommended compression stockings bilaterally * WBAT * Monitor for compartment syndrome * Follow-up with orthopedics within 10-14 days of discharge * PT/OT * CM/SW consult * Pain medications as ordered * O2 as needed to keep saturations >90% * BID colace for constipation/narcotic use Paroxysmal atrial fibrillation Chronic anticoagulation History of AL (myocardial infarction) History of heart artery stent * Hold ASA and warfarin today per Dr. Mejia * Daily INR * Consider resumption of ASA/Aspirin tomorrow * Telemetry Arthritis Chronic back pain Osteoarthritis * Pain medications as ordered * PT/OT * No acute concerns HLD (hyperlipidemia) * No acute concerns * Hold home statin for now HTN (hypertension) * No acute concerns * Monitor vital signs * Home BP meds as ordered COPD (chronic obstructive pulmonary disease) * No acute concerns * Home albuterol MDI PRN * Duonebs if needed * Continue to monitor Code status: Full code PCP: Dr. Madelin Rincon at [facility] in [place]. DVT prophylaxis: Home warfarin held today due to bleeding risk with INR therapeutic (Consider resumption tomorrow) Disposition: Patient admitted to medical floor for further pain control and PT OT due to femur fracture and significant hematomas. Upgraded to telemetry given cardiac history. Likely discharge in 1-2 days pending PT/OT evaluation and pain control.
[2021-01-25] MEDS: cefTRIAXone 1 GM in Sodium Chloride 0.9% 100 ML IV SCH (12:25)
[2021-01-25] MEDS ORDERED: Sodium Chloride 0.9% 250 ML IV SCH (16:30)
--- NOTE | 2021-01-25 20:09 | US ---
Right lateral leg ultrasound: Multiple real-time images were obtained of the right lateral leg, area of scanning is otherwise not marked on this exam. Comparison: Prior biltral CT study if the lower legs of 01/24/21 and right tibia/fibula x-ray of 01/22/21 are available. Findings: Hypoechoic area sis een within the lateral right leg which is too large to accurately measure. This most likely represents diffuse edema or diffuse hematoma. No focal fluid collections are seen. Nothing is seen to indicate a drainable fluid collection. Impression: 1. Diffuse edema or diffuse hematoma. 2. No drainable fluid collections are seen. Diagnostic code #2 I agree with preliminary report from [facility], finalized on 01/25/21, 12:51 PM CDT, code 2
[2021-01-25] MEDS: Gabapentin 300 MG Cap PO SCH (20:18)
[2021-01-26] MEDS: oxyCODONE 5 MG Tab PO PRN ×3 (06:41→18:12)
--- NOTE | 2021-01-26 07:41 | PCM.PN ---
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 * Carbon dioxide 24. * Anion gap 12.6. * BUN is 18. Creatinine 1.0. GFR greater than 60. * Glucose 165. * Calcium 8.4. * Total bilirubin 1.0. * AST is 22, ALT 34, alkaline phosphatase 62. * Protein is 6.7. * Albumin 3.9. * SARS-CoV-2 RNA is negative. * Left tibia-fibula x-ray was obtained showing soft tissue swelling and no acute bony abnormality. * Right femur x-rays obtained showing findings as noted above but no acute abnormality. * Formal read of the right tibia and fibula are pending however ED provider notes hairline nondisplaced fracture of the proximal right fibula with slight bowing of the fibula. * Noted to be unable to bear weight in the ED. * Given Dilaudid, lorazepam, Zofran, and metoclopramide in the ED for pain and nausea. He started on D5 NS. * Admitted to the medical floor for further management of his pain from hematoma and fracture. PLAN: Fracture of proximal end of right fibula Contusion of left lower extremity Contusion of right hip, initial encounter Contusion of right lower leg, initial encounter Lower extremity cellulitis, suspected * Daily labs * Weightbearing as tolerated lower extremities * Monitor bilateral lower extremity pulses at least BID * Contacted Dr. Gaitan, on-call orthopedics within [facility] in [place]. * Recommended compression stockings bilaterally * WBAT * Monitor for compartment syndrome * Follow-up with orthopedics within 10-14 days of discharge * PT/OT * CM/SW consult * Pain medications as ordered * O2 as needed to keep saturations >90% * BID colace for constipation/narcotic use * Given 1 unit PRBC on 01/25/2021 Paroxysmal atrial fibrillation Chronic anticoagulation History of VA (myocardial infarction) History of heart artery stent * Hold ASA and warfarin due to worsening hgb * Telemetry Arthritis Chronic back pain Osteoarthritis * Pain medications as ordered * PT/OT * No acute concerns HLD (hyperlipidemia) * No acute concerns * Hold home statin for now HTN (hypertension) * No acute concerns * Monitor vital signs * Home BP meds as ordered COPD (chronic obstructive pulmonary disease) * No acute concerns * Home albuterol MDI PRN * Duonebs if needed * Continue to monitor Code status: Full code PCP: Dr. Madelin Rincon at [facility] in [place]. DVT prophylaxis: Home warfarin held today due to bleeding risk with INR therapeutic (Consider resumption tomorrow) Disposition: Patient admitted to medical floor for further pain control and PT OT due to femur fracture and significant hematomas. Upgraded to telemetry given cardiac history. Likely discharge in 1-2 days pending stable hgb and labs <Anton Johnson Jr - Last Filed: 01/26/21 16:50> - Patient Data Vitals - Most Recent: Last Vital Signs Temp 98.8 F 01/26/21 15:47 Pulse 77 01/26/21 15:47 Resp 18 01/26/21 15:47 BP 114/54 L 01/26/21 15:47 Pulse Ox 94 L 01/26/21 15:47 I&O - Last 24 Hours: Intake & Output 01/26/21 01/26/21 01/26/21 06:59 14:59 22:59 Intake Total 700 1020 Output Total 800 2225 Balance -100 -1205 Lab Results Last 24 Hours: Laboratory Results - last 24 hr 01/25/21 01/25/21 01/25/21 Range/Units 09:26 22:20 22:20 WBC (4.23-9.07) K/mm3 RBC (4.63-6.08) M/mm3 Hgb 8.8 L (13.7-17.5) gm/dl Hct (40.1-51.0) % MCV (79.0-92.2) fl MCH (25.7-32.2) pg MCHC (32.2-35.5) g/dl RDW Std Deviation (35.1-43.9) fL Plt Count (163-337) K/mm3 MPV (9.4-12.3) fl Neut % (Auto) (34.0-67.9) % Lymph % (Auto) (21.8-53.1) % Henderson % (Auto) (5.3-12.2) % Eos % (Auto) (0.8-7.0) Baso % (Auto) (0.1-1.2) % Neut # (Auto) (1.78-5.38) K/mm3 Lymph # (Auto) (1.32-3.57) K/mm3 Henderson # (Auto) (0.30-0.82) K/mm3 Eos # (Auto) (0.04-0.54) K/mm3 Baso # (Auto) (0.01-0.08) K/mm3 PT (9.7-12.0) SECONDS INR Sodium (136-145) mEq/L Potassium (3.5-5.1) mEq/L Chloride (98-107) mEq/L Carbon Dioxide (21-32) mEq/L Anion Gap (5-15) BUN (7-18) mg/dL Creatinine (0.7-1.3) mg/dL Est Cr Clr Drug Dosing mL/min Estimated GFR (MDRD) (>60) mL/min BUN/Creatinine Ratio (14-18) Glucose (70-99) mg/dL Calcium (8.5-10.1) mg/dL Magnesium (1.8-2.4) mg/dL Total Bilirubin (0.2-1.0) mg/dL AST (15-37) U/L ALT (16-63) U/L Alkaline Phosphatase (46-116) U/L Creatine Kinase 482 H (39-308) U/L Total Protein (6.4-8.2) g/dl Albumin (3.4-5.0) g/dl Globulin gm/dL Albumin/Globulin Ratio (1-2) Blood Type O POSITIVE Gel Antibody Screen Negative Crossmatch See Detail 01/26/21 01/26/21 01/26/21 Range/Units 05:24 05:24 05:24 WBC 9.74 H (4.23-9.07) K/mm3 RBC 2.86 L (4.63-6.08) M/mm3 Hgb 8.6 L (13.7-17.5) gm/dl Hct 26.2 L (40.1-51.0) % MCV 91.6 (79.0-92.2) fl MCH 30.1 (25.7-32.2) pg MCHC 32.8 (32.2-35.5) g/dl RDW Std Deviation 44.7 H (35.1-43.9) fL Plt Count 133 L (163-337) K/mm3 MPV 10.6 (9.4-12.3) fl Neut % (Auto) 59.7 (34.0-67.9) % Lymph % (Auto) 24.9 (21.8-53.1) % Henderson % (Auto) 12.6 H (5.3-12.2) % Eos % (Auto) 1.7 (0.8-7.0) Baso % (Auto) 0.4 (0.1-1.2) % Neut # (Auto) 5.80 H (1.78-5.38) K/mm3 Lymph # (Auto) 2.43 (1.32-3.57) K/mm3 Henderson # (Auto) 1.23 H (0.30-0.82) K/mm3 Eos # (Auto) 0.17 (0.04-0.54) K/mm3 Baso # (Auto) 0.04 (0.01-0.08) K/mm3 PT 12.6 H (9.7-12.0) SECONDS INR 1.18 Sodium 139 (136-145) mEq/L Potassium 3.8 (3.5-5.1) mEq/L Chloride 103 (98-107) mEq/L Carbon Dioxide 28 (21-32) mEq/L Anion Gap 11.8 (5-15) BUN 16 (7-18) mg/dL Creatinine 0.9 (0.7-1.3) mg/dL Est Cr Clr Drug Dosing 73.10 mL/min Estimated GFR (MDRD) > 60 (>60) mL/min BUN/Creatinine Ratio 17.8 (14-18) Glucose 96 (70-99) mg/dL Calcium 7.9 L (8.5-10.1) mg/dL Magnesium 2.0 (1.8-2.4) mg/dL Total Bilirubin 1.2 H (0.2-1.0) mg/dL AST 25 (15-37) U/L ALT 23 (16-63) U/L Alkaline Phosphatase 42 L (46-116) U/L Creatine Kinase (39-308) U/L Total Protein 5.9 L (6.4-8.2) g/dl Albumin 3.0 L (3.4-5.0) g/dl Globulin 2.9 gm/dL Albumin/Globulin Ratio 1.0 (1-2) Blood Type Gel Antibody Screen Crossmatch Med Orders - Current: Current Medications Acetaminophen (Acetaminophen 325 Mg Tab) 650 mg PO TID COUNT INCLUDES THE [facility] Last Admin: 01/26/21 15:37 Dose: 650 mg Documented by: Albuterol (Albuterol 6.7 Gm Inhaler) 0 gm INH Q4H PRN PRN Reason: Shortness of Breath Albuterol/Ipratropium (Albuterol/Ipratropium 3.0-0.5 Mg/3 Ml Neb Soln) 3 ml NEB QIDRT PRN PRN Reason: Shortness Of Breath/wheezing Amlodipine Besylate (Amlodipine 2.5 Mg Tab) 2.5 mg PO DAILY COUNT INCLUDES THE [facility] Last Admin: 01/26/21 08:09 Dose: 2.5 mg Documented by: Cyclobenzaprine HCl (Cyclobenzaprine 10 Mg Tab) 10 mg PO TID COUNT INCLUDES THE [facility] Last Admin: 01/26/21 15:36 Dose: 10 mg Documented by: Docusate Sodium (Docusate Sodium 100 Mg Cap) 100 mg PO Q12H COUNT INCLUDES THE [facility] Last Admin: 01/26/21 11:33 Dose: 100 mg Documented by: Gabapentin (Gabapentin 300 Mg Cap) 300 mg PO BEDTIME COUNT INCLUDES THE [facility] Last Admin: 01/25/21 20:18 Dose: 300 mg Documented by: Hydromorphone HCl (Hydromorphone 1 Mg/Ml Syringe) 1 mg IVPUSH Q1H PRN PRN Reason: Pain (severe 7-10) Last Admin: 01/26/21 15:38 Dose: 1 mg Documented by: Ceftriaxone Sodium 1 gm/ (Sodium Chloride) 100 mls @ 200 mls/hr IV Q24H COUNT INCLUDES THE [facility] Last Admin: 01/26/21 13:18 Dose: 200 mls/hr Documented by: Isosorbide Mononitrate (Isosorbide Mononitrate 60 Mg Tab.Er) 60 mg PO DAILY COUNT INCLUDES THE [facility] Last Admin: 01/26/21 08:10 Dose: 60 mg Documented by: Metoprolol Succinate (Metoprolol Succinate 25 Mg Tab.Er) 50 mg PO DAILY COUNT INCLUDES THE [facility] Last Admin: 01/26/21 08:11 Dose: 50 mg Documented by: Ondansetron HCl (Ondansetron 4 Mg/2 Ml Sdv) 4 mg IVPUSH Q6H PRN PRN Reason: Nausea Oxycodone HCl (Oxycodone 5 Mg Tab) 5 - 10 mg PO Q4H PRN PRN Reason: Pain Last Admin: 01/26/21 11:21 Dose: 10 mg Documented by: Polyethylene Glycol (Polyethylene Glycol 3350 Powder 17 Gm Packet) 17 gm PO ASDIRECTED PRN PRN Reason: Constipation Last Admin: 01/25/21 08:18 Dose: 17 gm Documented by: Discontinued Medications Acetaminophen (Acetaminophen 325 Mg Tab) 650 mg PO Q4H PRN PRN Reason: Pain (Mild 1-3)/fever Last Admin: 01/23/21 21:51 Dose: 650 mg Documented by: Cyclobenzaprine HCl (Cyclobenzaprine 10 Mg Tab) 5 mg PO TID PRN PRN Reason: Muscle Spasm - Painful Last Admin: 01/24/21 14:16 Dose: 5 mg Documented by: Docusate Sodium (Docusate Sodium 100 Mg Cap) 100 mg PO Q12H PRN PRN Reason: Constipation Furosemide (Furosemide 20 Mg/2 Ml Vial) 20 mg IVPUSH ONETIME ONE Stop: 01/26/21 10:17 Last Admin: 01/26/21 11:20 Dose: 20 mg Documented by: Hydromorphone HCl (Hydromorphone 0.5 Mg/0.5 Ml Syringe) 0.5 mg IVPUSH ONETIME ONE Stop: 01/22/21 18:46 Last Admin: 01/22/21 19:00 Dose: 0.5 mg Documented by: Hydromorphone HCl (Hydromorphone 0.5 Mg/0.5 Ml Syringe) 0.5 mg IVPUSH ONETIME ONE Stop: 01/22/21 19:51 Last Admin: 01/22/21 20:04 Dose: 0.5 mg Documented by: Hydromorphone HCl (Hydromorphone 0.5 Mg/0.5 Ml Syringe) 0.5 mg IVPUSH Q2H PRN PRN Reason: Pain Last Admin: 01/24/21 14:16 Dose: 0.5 mg Documented by: Dextrose/Sodium Chloride (Dextrose 5%-Normal Saline) 1,000 mls @ 150 mls/hr IV ASDIRECTED COUNT INCLUDES THE [facility] Lactated Ringer's (Ringers, Lactated) 500 mls @ 250 mls/hr IV ONETIME ONE Stop: 01/25/21 09:44 Last Admin: 01/25/21 07:52 Dose: 250 mls/hr Documented by: Sodium Chloride (Normal Saline) 250 mls @ 100 mls/hr IV ASDIRECTED COUNT INCLUDES THE [facility] Last Admin: 01/25/21 18:33 Dose: 100 mls/hr Documented by: Lorazepam (Lorazepam 2 Mg/Ml Sdv) 1 mg IVPUSH ONETIME ONE Stop: 01/22/21 16:52 Last Admin: 01/22/21 17:50 Dose: Not Given Documented by: Metoclopramide HCl (Metoclopramide 10 Mg/2 Ml Sdv) 10 mg IVPUSH ONETIME ONE Stop: 01/22/21 16:51 Last Admin: 01/22/21 17:51 Dose: Not Given Documented by: Ondansetron HCl (Ondansetron 4 Mg/2 Ml Sdv) 4 mg IVPUSH ONETIME ONE Stop: 01/22/21 18:46 Last Admin: 01/22/21 19:00 Dose: 4 mg Documented by: Oxycodone/Acetaminophen (Acetaminophen/Oxycodone 325-5 Mg Tab) 1 tab PO Q4H PRN PRN Reason: Pain (moderate 4-6) Last Admin: 01/24/21 12:00 Dose: 1 tab Documented by: - Patient Data Lab Results Last 24 hrs: Laboratory Results - last 24 hr 01/25/21 01/25/21 01/25/21 Range/Units 09:26 22:20 22:20 WBC (4.23-9.07) K/mm3 RBC (4.63-6.08) M/mm3 Hgb 8.8 L (13.7-17.5) gm/dl Hct (40.1-51.0) % MCV (79.0-92.2) fl MCH (25.7-32.2) pg MCHC (32.2-35.5) g/dl RDW Std Deviation (35.1-43.9) fL Plt Count (163-337) K/mm3 MPV (9.4-12.3) fl Neut % (Auto) (34.0-67.9) % Lymph % (Auto) (21.8-53.1) % Henderson % (Auto) (5.3-12.2) % Eos % (Auto) (0.8-7.0) Baso % (Auto) (0.1-1.2) % Neut # (Auto) (1.78-5.38) K/mm3 Lymph # (Auto) (1.32-3.57) K/mm3 Henderson # (Auto) (0.30-0.82) K/mm3 Eos # (Auto) (0.04-0.54) K/mm3 Baso # (Auto) (0.01-0.08) K/mm3 PT (9.7-12.0) SECONDS INR Sodium (136-145) mEq/L Potassium (3.5-5.1) mEq/L Chloride (98-107) mEq/L Carbon Dioxide (21-32) mEq/L Anion Gap (5-15) BUN (7-18) mg/dL Creatinine (0.7-1.3) mg/dL Est Cr Clr Drug Dosing mL/min Estimated GFR (MDRD) (>60) mL/min BUN/Creatinine Ratio (14-18) Glucose (70-99) mg/dL Calcium (8.5-10.1) mg/dL Magnesium (1.8-2.4) mg/dL Total Bilirubin (0.2-1.0) mg/dL AST (15-37) U/L ALT (16-63) U/L Alkaline Phosphatase (46-116) U/L Creatine Kinase 482 H (39-308) U/L Total Protein (6.4-8.2) g/dl Albumin (3.4-5.0) g/dl Globulin gm/dL Albumin/Globulin Ratio (1-2) Blood Type O POSITIVE Gel Antibody Screen Negative Crossmatch See Detail 01/26/21 01/26/21 01/26/21 Range/Units 05:24 05:24 05:24 WBC 9.74 H (4.23-9.07) K/mm3 RBC 2.86 L (4.63-6.08) M/mm3 Hgb 8.6 L (13.7-17.5) gm/dl Hct 26.2 L (40.1-51.0) % MCV 91.6 (79.0-92.2) fl MCH 30.1 (25.7-32.2) pg MCHC 32.8 (32.2-35.5) g/dl RDW Std Deviation 44.7 H (35.1-43.9) fL Plt Count 133 L (163-337) K/mm3 MPV 10.6 (9.4-12.3) fl Neut % (Auto) 59.7 (34.0-67.9) % Lymph % (Auto) 24.9 (21.8-53.1) % Henderson % (Auto) 12.6 H (5.3-12.2) % Eos % (Auto) 1.7 (0.8-7.0) Baso % (Auto) 0.4 (0.1-1.2) % Neut # (Auto) 5.80 H (1.78-5.38) K/mm3 Lymph # (Auto) 2.43 (1.32-3.57) K/mm3 Henderson # (Auto) 1.23 H (0.30-0.82) K/mm3 Eos # (Auto) 0.17 (0.04-0.54) K/mm3 Baso # (Auto) 0.04 (0.01-0.08) K/mm3 PT 12.6 H (9.7-12.0) SECONDS INR 1.18 Sodium 139 (136-145) mEq/L Potassium 3.8 (3.5-5.1) mEq/L Chloride 103 (98-107) mEq/L Carbon Dioxide 28 (21-32) mEq/L Anion Gap 11.8 (5-15) BUN 16 (7-18) mg/dL Creatinine 0.9 (0.7-1.3) mg/dL Est Cr Clr Drug Dosing 73.10 mL/min Estimated GFR (MDRD) > 60 (>60) mL/min BUN/Creatinine Ratio 17.8 (14-18) Glucose 96 (70-99) mg/dL Calcium 7.9 L (8.5-10.1) mg/dL Magnesium 2.0 (1.8-2.4) mg/dL Total Bilirubin 1.2 H (0.2-1.0) mg/dL AST 25 (15-37) U/L ALT 23 (16-63) U/L Alkaline Phosphatase 42 L (46-116) U/L Creatine Kinase (39-308) U/L Total Protein 5.9 L (6.4-8.2) g/dl Albumin 3.0 L (3.4-5.0) g/dl Globulin 2.9 gm/dL Albumin/Globulin Ratio 1.0 (1-2) Blood Type Gel Antibody Screen Crossmatch Result Diagrams: 01/26/21 05:24 01/26/21 05:24 Sepsis Event Note - Focused Exam Vital Signs: Vital Signs Temp Pulse Resp BP Pulse Ox 01/26/21 15:47 98.8 F 77 18 114/54 L 94 L 01/26/21 11:52 98.6 F 72 16 125/64 96 01/26/21 08:11 75 119/60 01/26/21 08:09 119/60 01/26/21 08:08 97.9 F 75 18 119/60 94 L - Plan Plan:: Case reviewed and discussed in full. Agree with evaluation, assessment and plan.
[2021-01-26] MEDS: amLODIPine 2.5 MG Tab PO SCH (08:09)
[2021-01-26] MEDS: Cyclobenzaprine 10 MG Tab PO SCH ×3 (08:10→20:41)
[2021-01-26] MEDS: Isosorbide Mononitrate 60 MG Tab.ER PO SCH (08:10)
[2021-01-26] MEDS: Metoprolol Succinate 25 MG Tab.ER PO SCH (08:11)
[2021-01-26] MEDS: Acetaminophen 325 MG Tab PO SCH ×3 (08:12→20:42)
--- NOTE | 2021-01-26 08:14 | CT ---
CT bilateral lower extremities Technique: Multiple axial sections were obtained through the both tibia and fibula from above the knee inferiorly to the ankle. Reconstructed coronal and sagittal images were obtained. Comparison: Prior bilateral tibia and fibula study performed on 01/22/21. Findings: Soft tissue swelling is seen within the subcutaneous tissues on both sides. No discrete muscle abnormality is appreciated. Very slight degenerative change is seen within the right patellofemoral joint. No acute fracture is seen within the right tibia or fibula. No focal fluid collections are seen. Very slight vascular calcification is noted on both sides. Impression: 1. Incidental findings as noted above. 2. Nothing acute is seen on CT study of bilateral tibia and fibula. Diagnostic code #2 I agree with preliminary report from [facility], finalized on 01/24/21, 3:23 PM Central Daylight Time, code 1 MTDD
[2021-01-26] MEDS: HYDROmorphone 1 MG/ML Syringe IVPUSH PRN ×4 (08:23→20:36)
[2021-01-26] MEDS ORDERED: Furosemide 20 MG/2 ML VIAL IVPUSH ONE (10:16)
[2021-01-26] MEDS: Docusate Sodium 100 MG Cap PO SCH ×3 (11:33→21:32)
[2021-01-26] MEDS: cefTRIAXone 1 GM in Sodium Chloride 0.9% 100 ML IV SCH (13:18)
[2021-01-26] MEDS: Gabapentin 300 MG Cap PO SCH (20:41)
[2021-01-27] MEDS: oxyCODONE 5 MG Tab PO PRN ×3 (03:39→13:42)
--- NOTE | 2021-01-27 07:45 | PCM.PN ---
<Spike Sorto - Last Filed: 01/27/21 11:17> - General Info Date of Service: 01/27/21 Admission Dx/Problem (Free Text): Admission Diagnosis/Problem Admission Diagnosis/Problem Hematoma and contusion Functional Status: Reports: Pain Controlled, Tolerating Diet, Ambulating, Urinating. Denies: New Symptoms - Review of Systems General: Reports: No Symptoms. Denies: Fever, Weakness, Fatigue, Malaise, Chil ls HEENT: Reports: No Symptoms. Denies: Headaches, Sore Throat Pulmonary: Reports: No Symptoms. Denies: Shortness of Breath, Cough, Sputum, Wheezing Cardiovascular: Reports: Edema. Denies: Chest Pain, Palpitations, Dyspnea on Exertion Gastrointestinal: Reports: No Symptoms. Denies: Abdominal Pain, Constipation, Diarrhea, Nausea, Vomiting Genitourinary: Reports: No Symptoms. Denies: Pain Musculoskeletal: Reports: Leg Pain Skin: Reports: No Symptoms. Denies: Cyanosis Neurological: Reports: Difficulty Walking, Gait Disturbance. Denies: Confusion, Numbness, Tingling, Weakness Psychiatric: Reports: No Symptoms - Patient Data Vitals - Most Recent: Last Vital Signs Temp 98.8 F 01/27/21 03:38 Pulse 75 01/27/21 03:38 Resp 20 01/27/21 03:38 BP 107/74 01/27/21 03:38 Pulse Ox 94 L 01/27/21 03:38 Weight - Most Recent: 259 lb 11.2 oz I&O - Last 24 Hours: Intake & Output 01/26/21 01/27/21 01/27/21 22:59 06:59 14:59 Intake Total 1340 300 Output Total 2225 1150 Balance -885 -850 Lab Results Last 24 Hours: Laboratory Results - last 24 hr 01/27/21 01/27/21 Range/Units 04:49 04:49 WBC 9.78 H (4.23-9.07) K/mm3 RBC 2.81 L (4.63-6.08) M/mm3 Hgb 8.5 L (13.7-17.5) gm/dl Hct 26.2 L (40.1-51.0) % MCV 93.2 H (79.0-92.2) fl MCH 30.2 (25.7-32.2) pg MCHC 32.4 (32.2-35.5) g/dl RDW Std Deviation 45.6 H (35.1-43.9) fL Plt Count 164 (163-337) K/mm3 MPV 10.4 (9.4-12.3) fl Neut % (Auto) 62.2 (34.0-67.9) % Lymph % (Auto) 21.4 L (21.8-53.1) % [place] % (Auto) 12.0 (5.3-12.2) % Eos % (Auto) 2.7 (0.8-7.0) Baso % (Auto) 0.6 (0.1-1.2) % Neut # (Auto) 6.09 H (1.78-5.38) K/mm3 Lymph # (Auto) 2.09 (1.32-3.57) K/mm3 [place] # (Auto) 1.17 H (0.30-0.82) K/mm3 Eos # (Auto) 0.26 (0.04-0.54) K/mm3 Baso # (Auto) 0.06 (0.01-0.08) K/mm3 Manual Slide Review Abnormal smear Sodium 139 (136-145) mEq/L Potassium 3.8 (3.5-5.1) mEq/L Chloride 96 L (98-107) mEq/L Carbon Dioxide 29 (21-32) mEq/L Anion Gap 17.8 H (5-15) BUN 19 H (7-18) mg/dL Creatinine 0.9 (0.7-1.3) mg/dL Est Cr Clr Drug Dosing 73.10 mL/min Estimated GFR (MDRD) > 60 (>60) mL/min BUN/Creatinine Ratio 21.1 H (14-18) Glucose 103 H (70-99) mg/dL Calcium 8.2 L (8.5-10.1) mg/dL Magnesium 2.1 (1.8-2.4) mg/dL Total Bilirubin 1.4 H (0.2-1.0) mg/dL AST 29 (15-37) U/L ALT 27 (16-63) U/L Alkaline Phosphatase 48 (46-116) U/L Creatine Kinase 332 H (39-308) U/L Total Protein 6.3 L (6.4-8.2) g/dl Albumin 3.1 L (3.4-5.0) g/dl Globulin 3.2 gm/dL Albumin/Globulin Ratio 1.0 (1-2) Francesco Results Last 24 Hours: Microbiology 01/26/21 12:44 Gram Stain - Final Leg, Right Med Orders - Current: Current Medications Acetaminophen (Acetaminophen 325 Mg Tab) 650 mg PO TID [facility] Last Admin: 01/26/21 20:42 Dose: 650 mg Documented by: Albuterol (Albuterol 6.7 Gm Inhaler) 0 gm INH Q4H PRN PRN Reason: Shortness of Breath Albuterol/Ipratropium (Albuterol/Ipratropium 3.0-0.5 Mg/3 Ml Neb Soln) 3 ml NEB QIDRT PRN PRN Reason: Shortness Of Breath/wheezing Amlodipine Besylate (Amlodipine 2.5 Mg Tab) 2.5 mg PO DAILY [facility] Last Admin: 01/26/21 08:09 Dose: 2.5 mg Documented by: Cyclobenzaprine HCl (Cyclobenzaprine 10 Mg Tab) 10 mg PO TID [facility] Last Admin: 01/26/21 20:41 Dose: 10 mg Documented by: Docusate Sodium (Docusate Sodium 100 Mg Cap) 100 mg PO Q12H [facility] Last Admin: 01/26/21 21:32 Dose: Not Given Documented by: Gabapentin (Gabapentin 300 Mg Cap) 300 mg PO BEDTIME [facility] Last Admin: 01/26/21 20:41 Dose: 300 mg Documented by: Hydromorphone HCl (Hydromorphone 1 Mg/Ml Syringe) 1 mg IVPUSH Q1H PRN PRN Reason: Pain (severe 7-10) Last Admin: 01/26/21 20:36 Dose: 1 mg Documented by: Ceftriaxone Sodium 1 gm/ (Sodium Chloride) 100 mls @ 200 mls/hr IV Q24H [facility] Last Admin: 01/26/21 13:18 Dose: 200 mls/hr Documented by: Isosorbide Mononitrate (Isosorbide Mononitrate 60 Mg Tab.Er) 60 mg PO DAILY [facility] Last Admin: 01/26/21 08:10 Dose: 60 mg Documented by: Metoprolol Succinate (Metoprolol Succinate 25 Mg Tab.Er) 50 mg PO DAILY [facility] Last Admin: 01/26/21 08:11 Dose: 50 mg Documented by: Ondansetron HCl (Ondansetron 4 Mg/2 Ml Sdv) 4 mg IVPUSH Q6H PRN PRN Reason: Nausea Oxycodone HCl (Oxycodone 5 Mg Tab) 5 - 10 mg PO Q4H PRN PRN Reason: Pain Last Admin: 01/27/21 03:39 Dose: 10 mg Documented by: Polyethylene Glycol (Polyethylene Glycol 3350 Powder 17 Gm Packet) 17 gm PO ASDIRECTED PRN PRN Reason: Constipation Last Admin: 01/25/21 08:18 Dose: 17 gm Documented by: Discontinued Medications Acetaminophen (Acetaminophen 325 Mg Tab) 650 mg PO Q4H PRN PRN Reason: Pain (Mild 1-3)/fever Last Admin: 01/23/21 21:51 Dose: 650 mg Documented by: Cyclobenzaprine HCl (Cyclobenzaprine 10 Mg Tab) 5 mg PO TID PRN PRN Reason: Muscle Spasm - Painful Last Admin: 01/24/21 14:16 Dose: 5 mg Documented by: Docusate Sodium (Docusate Sodium 100 Mg Cap) 100 mg PO Q12H PRN PRN Reason: Constipation Furosemide (Furosemide 20 Mg/2 Ml Vial) 20 mg IVPUSH ONETIME ONE Stop: 01/26/21 10:17 Last Admin: 01/26/21 11:20 Dose: 20 mg Documented by: Hydromorphone HCl (Hydromorphone 0.5 Mg/0.5 Ml Syringe) 0.5 mg IVPUSH ONETIME ONE Stop: 01/22/21 18:46 Last Admin: 01/22/21 19:00 Dose: 0.5 mg Documented by: Hydromorphone HCl (Hydromorphone 0.5 Mg/0.5 Ml Syringe) 0.5 mg IVPUSH ONETIME ONE Stop: 01/22/21 19:51 Last Admin: 01/22/21 20:04 Dose: 0.5 mg Documented by: Hydromorphone HCl (Hydromorphone 0.5 Mg/0.5 Ml Syringe) 0.5 mg IVPUSH Q2H PRN PRN Reason: Pain Last Admin: 01/24/21 14:16 Dose: 0.5 mg Documented by: Dextrose/Sodium Chloride (Dextrose 5%-Normal Saline) 1,000 mls @ 150 mls/hr IV ASDIRECTED [facility] Lactated Ringer's (Ringers, Lactated) 500 mls @ 250 mls/hr IV ONETIME ONE Stop: 01/25/21 09:44 Last Admin: 01/25/21 07:52 Dose: 250 mls/hr Documented by: Sodium Chloride (Normal Saline) 250 mls @ 100 mls/hr IV ASDIRECTED [facility] Last Admin: 01/25/21 18:33 Dose: 100 mls/hr Documented by: Lorazepam (Lorazepam 2 Mg/Ml Sdv) 1 mg IVPUSH ONETIME ONE Stop: 01/22/21 16:52 Last Admin: 01/22/21 17:50 Dose: Not Given Documented by: Metoclopramide HCl (Metoclopramide 10 Mg/2 Ml Sdv) 10 mg IVPUSH ONETIME ONE Stop: 01/22/21 16:51 Last Admin: 01/22/21 17:51 Dose: Not Given Documented by: Ondansetron HCl (Ondansetron 4 Mg/2 Ml Sdv) 4 mg IVPUSH ONETIME ONE Stop: 01/22/21 18:46 Last Admin: 01/22/21 19:00 Dose: 4 mg Documented by: Oxycodone/Acetaminophen (Acetaminophen/Oxycodone 325-5 Mg Tab) 1 tab PO Q4H PRN PRN Reason: Pain (moderate 4-6) Last Admin: 01/24/21 12:00 Dose: 1 tab Documented by: - Exam Quality Assessment: DVT Prophylaxis General: Alert, Oriented, Cooperative, No Acute Distress HEENT: Pupils Equal, Pupils Reactive, Mucous Membr. Moist/No Name Neck: Supple, Trachea Midline Lungs: Clear to Auscultation, Normal Respiratory Effort Cardiovascular: Regular Rate, Regular Rhythm GI/Abdominal Exam: Normal Bowel Sounds, Soft, Non-Tender, No Distention (Male) Exam: Deferred Back Exam: Normal Inspection, Full Range of Motion Extremities: Normal Inspection, Normal Range of Motion, Non-Tender, Normal Capillary Refill, Pedal Edema (R>L ) Peripheral Pulses: 2+: Radial (L), Radial (R), Dorsalis Pedis (L), Dorsalis Pedis (R) Skin: Warm, Dry, Intact Wound/Incisions: Healing Well, Drainage, Erythema Improving Neurological: No New Focal Deficit Psy/Mental Status: Alert, Normal Affect, Normal Mood - Patient Data Lab Results Last 24 hrs: Laboratory Results - last 24 hr 01/27/21 01/27/21 Range/Units 04:49 04:49 WBC 9.78 H (4.23-9.07) K/mm3 RBC 2.81 L (4.63-6.08) M/mm3 Hgb 8.5 L (13.7-17.5) gm/dl Hct 26.2 L (40.1-51.0) % MCV 93.2 H (79.0-92.2) fl MCH 30.2 (25.7-32.2) pg MCHC 32.4 (32.2-35.5) g/dl RDW Std Deviation 45.6 H (35.1-43.9) fL Plt Count 164 (163-337) K/mm3 MPV 10.4 (9.4-12.3) fl Neut % (Auto) 62.2 (34.0-67.9) % Lymph % (Auto) 21.4 L (21.8-53.1) % [place] % (Auto) 12.0 (5.3-12.2) % Eos % (Auto) 2.7 (0.8-7.0) Baso % (Auto) 0.6 (0.1-1.2) % Neut # (Auto) 6.09 H (1.78-5.38) K/mm3 Lymph # (Auto) 2.09 (1.32-3.57) K/mm3 [place] # (Auto) 1.17 H (0.30-0.82) K/mm3 Eos # (Auto) 0.26 (0.04-0.54) K/mm3 Baso # (Auto) 0.06 (0.01-0.08) K/mm3 Manual Slide Review Abnormal smear Sodium 139 (136-145) mEq/L Potassium 3.8 (3.5-5.1) mEq/L Chloride 96 L (98-107) mEq/L Carbon Dioxide 29 (21-32) mEq/L Anion Gap 17.8 H (5-15) BUN 19 H (7-18) mg/dL Creatinine 0.9 (0.7-1.3) mg/dL Est Cr Clr Drug Dosing 73.10 mL/min Estimated GFR (MDRD) > 60 (>60) mL/min BUN/Creatinine Ratio 21.1 H (14-18) Glucose 103 H (70-99) mg/dL Calcium 8.2 L (8.5-10.1) mg/dL Magnesium 2.1 (1.8-2.4) mg/dL Total Bilirubin 1.4 H (0.2-1.0) mg/dL AST 29 (15-37) U/L ALT 27 (16-63) U/L Alkaline Phosphatase 48 (46-116) U/L Creatine Kinase 332 H (39-308) U/L Total Protein 6.3 L (6.4-8.2) g/dl Albumin 3.1 L (3.4-5.0) g/dl Globulin 3.2 gm/dL Albumin/Globulin Ratio 1.0 (1-2) Result Diagrams: 01/27/21 04:49 01/27/21 04:49 Francesco Results Last 24 hrs: Microbiology 01/26/21 12:44 Gram Stain - Final Leg, Right Sepsis Event Note - Evaluation Sepsis Screening Result: No Definite Risk - Focused Exam Vital Signs: Vital Signs Temp Pulse Resp BP Pulse Ox 01/27/21 03:38 98.8 F 75 20 107/74 94 L 01/26/21 20:35 99.1 F 80 18 121/59 L 96 - Problem List & Annotations (1) Chronic anticoagulation SNOMED Code(s): 639768323 Code(s): Z79.01 - HALFWAY (CURRENT) USE OF ANTICOAGULANTS Status: Chronic Priority: High Current Visit: Yes (2) HLD (hyperlipidemia) SNOMED Code(s): 98181176 Code(s): E78.5 - HYPERLIPIDEMIA, UNSPECIFIED Status: Chronic Priority: Low Current Visit: No Qualifiers: Hyperlipidemia type: unspecified Qualified Code(s): E78.5 - Hyperlipidemia, unspecified (3) HTN (hypertension) SNOMED Code(s): 28162921 Code(s): I10 - ESSENTIAL (PRIMARY) HYPERTENSION Status: Chronic Priority: Medium Current Visit: No Qualifiers: Hypertension type: unspecified Qualified Code(s): I10 - Essential (primary) hypertension (4) History of [place] (myocardial infarction) SNOMED Code(s): 833436870 Code(s): I25.2 - OLD MYOCARDIAL INFARCTION Status: Chronic Priority: Low Current Visit: No (5) History of heart artery stent SNOMED Code(s): 742673776, 686664333 Code(s): Z95.5 - PRESENCE OF CORONARY ANGIOPLASTY IMPLANT AND GRAFT Status: Chronic Priority: Low Current Visit: No (6) COPD (chronic obstructive pulmonary disease) SNOMED Code(s): 36420228 Code(s): J44.9 - CHRONIC OBSTRUCTIVE PULMONARY DISEASE, UNSPECIFIED Status: Chronic Priority: Medium Current Visit: No Qualifiers: COPD type: unspecified COPD Qualified Code(s): J44.9 - Chronic obstructive pulmonary disease, unspecified (7) Arthritis SNOMED Code(s): 7759779 Code(s): M19.90 - UNSPECIFIED OSTEOARTHRITIS, UNSPECIFIED SITE Status: Chronic Priority: Low Current Visit: No (8) Chronic back pain SNOMED Code(s): 849968052 Code(s): M54.9 - DORSALGIA, UNSPECIFIED; G89.29 - OTHER CHRONIC PAIN Status: Chronic Priority: Low Current Visit: No Qualifiers: Back pain location: back pain in unspecified location Back pain laterality: unspecified Qualified Code(s): M54.9 - Dorsalgia, unspecified; G89.29 - Other chronic pain (9) Osteoarthritis SNOMED Code(s): 812183487 Code(s): M19.90 - UNSPECIFIED OSTEOARTHRITIS, UNSPECIFIED SITE Status: Chronic Priority: Low Current Visit: No Qualifiers: Osteoarthritis location: multiple joints Osteoarthritis type: primary Qualified Code(s): M89.49 - Other hypertrophic osteoarthropathy, multiple sites (10) Contusion of left lower extremity SNOMED Code(s): 30159510 Code(s): S80.12XA - CONTUSION OF LEFT LOWER LEG, INITIAL ENCOUNTER Status: Acute Priority: High Current Visit: Yes Qualifiers: Encounter type: initial encounter Qualified Code(s): S80.12XA - Contusion of left lower leg, initial encounter (11) Contusion of right hip, initial encounter SNOMED Code(s): 63158920 Code(s): S70.01XA - CONTUSION OF RIGHT HIP, INITIAL ENCOUNTER Status: Acute Priority: High Current Visit: Yes (12) Contusion of right lower leg, initial encounter SNOMED Code(s): 96508273232309409 Code(s): S80.11XA - CONTUSION OF RIGHT LOWER LEG, INITIAL ENCOUNTER Status: Acute Priority: High Current Visit: Yes (13) Fracture of proximal end of right fibula SNOMED Code(s): 78175386 Code(s): S82.831A - OTH FRACTURE OF UPPER AND LOWER END OF RIGHT FIBULA, INIT Status: Acute Priority: High Current Visit: Yes Qualifiers: Encounter type: initial encounter Fracture type: closed Fracture morphology: other fracture Qualified Code(s): S82.831A - Other fracture of upper and lower end of right fibula, initial encounter for closed fracture (14) Paroxysmal atrial fibrillation SNOMED Code(s): 673510361 Code(s): I48.0 - PAROXYSMAL ATRIAL FIBRILLATION Status: Chronic Priority: Medium Current Visit: No (15) Lower extremity cellulitis SNOMED Code(s): 064572625 Code(s): L03.119 - CELLULITIS OF UNSPECIFIED PART OF LIMB Status: Suspected Priority: High Current Visit: Yes Qualifiers: Laterality: right Qualified Code(s): L03.115 - Cellulitis of right lower limb (16) Elevated CK SNOMED Code(s): 381412432 Code(s): R74.8 - ABNORMAL LEVELS OF OTHER SERUM ENZYMES Status: Acute Priority: High Current Visit: Yes - Problem List Review Problem List Initiated/Reviewed/Updated: Yes - My Orders Last 24 Hours: My Active Orders 01/26/21 09:12 Consult to Physical Therapy [PT Evaluation and Treatment] [CONS] Routine 01/26/21 10:15 Elevate Extremity [RC] BID 01/26/21 12:44 CULTURE, ANAEROBE & AEROBE [MREF] Routine - Assessment Assessment:: Assessment - 01/23/2021 (admitted evening of 01/22/2021) * 71-year male who presents to our ED on the evening of 01/22/2021 after workplace injury at the [employer] [place] * History of proximal A. fib, chronic anticoagulation on Coumadin, HLD, HTN, [place] with 2 stents placed, COPD, arthritis, chronic back pain, osteoarthritis * Struck by a ball and slammed into a steel [place] fence. * Struck on the left side which resulted in right lower extremity and hip pain * On Coumadin for proximal A. fib and is noted to have significant hematomas over the lateral left knee and left calf * Hematomas noted to the right calf and contusion of the right hip * Was able to walk initially after the injury * Denies any rib pain, shoulder pain, head or neck pain. He does have chronic low back pain but states that that is stable. * Bystanders did apply ice packs and those are present on ED arrival. * 12-lead EKG is obtained showing a sinus rhythm at 60 bpm with left axis deviation. Consider left atrial hypertrophy. There are near Q waves in V1 and V2 and Q waves noted in inferior leads. Tall R waves are noted in lead I. There is abnormal R wave progression with delayed transition and T wave inversion in leads V1 through V4 with flattening in V5 and V6. * Labs are obtained: * WBC of 9.01. * Hemoglobin 14.0. Hematocrit 41.3. * Platelet 153,000. * Neutrophils are 71.6%. * INR 2.98. * Sodium 141. * Potassium 3.6. * Chloride 108. * Carbon dioxide 24. * Anion gap 12.6. * BUN is 18. Creatinine 1.0. GFR greater than 60. * Glucose 165. * Calcium 8.4. * Total bilirubin 1.0. * AST is 22, ALT 34, alkaline phosphatase 62. * Protein is 6.7. * Albumin 3.9. * SARS-CoV-2 RNA is negative. * Left tibia-fibula x-ray was obtained showing soft tissue swelling and no acute bony abnormality. * Right femur x-rays obtained showing findings as noted above but no acute abnormality. * Formal read of the right tibia and fibula are pending however ED provider notes hairline nondisplaced fracture of the proximal right fibula with slight bowing of the fibula. * Noted to be unable to bear weight in the ED. * Given Dilaudid, lorazepam, Zofran, and metoclopramide in the ED for pain and nausea. He started on D5 NS. * Admitted to the medical floor for further management of his pain from hematoma and fracture. 01/24/2021 -still having lower extremity pain -check CK -monitor for compartment syndrome -check CT of lower extremities -hold aspirin -hold warfarin -serial hgb 01/25/2021 -CT lower extremity showing no acute finding of Tibia and Fibula -will obtain US right lower extremity -continue to trend CK -start ceftriaxone for possible secondary early cellulitis of right lower extremity -hemoglobin trending; down transfuse to keep hgb>8 -serial hgb and CK -compartment syndrome low on differential will continue to monitory -hold aspirin and warfarin -INR now under 2.0 01/26/2021 71-year-old male admitted due to trauma resulting in lower extremity hematomas and pain. Lower extremity ultrasound was obtained at 01/25 and shows edema and hematoma but nothing acute. CT of the bilateral lower extremities was obtained showing incidental findings and nothing acute. Labs overnight show a hemoglobin trend of 8.6-->8 0.8-->8.6. WBC is 9.74. Platelet 133,000. INR is 1.18. Sodium is 139. Potassium 3.8. Chloride 103. Carbon oxide 28. Anion gap is 11.8. BUN is 16. Creatinine 0.9. GFR greater than 60. Glucose is 96. Calcium 7.9. Magnesium 2.0. Total bilirubin 1.2. AST is 25, ALT 23, alkaline phosphatase is 42. CK overnight was 482. Total protein is 5.9. Albumin 3.0. Patient does have significant blistering bilaterally, however much worse on the right side. PT wound care is ordered and will moreno these. We will obtain a culture from the fluid. We will continue 1 g Rocephin which was started due to concerns over developing cellulitis the right lower extremity. We will give 20 mg IV push Lasix due to worsening pedal edema. Otherwise we will continue current treatment plan with PT and OT. Likely discharge in 1-2 more days pending improvement. 01/27/2021 This is a 71-year-old male admitted after trauma caused by a cow pushing him into a cattle fence panel. Overall he reports continued leg pain but states he is feeling pretty good. He did have significant blistering of his right lateral extremity. These were drained yesterday and fluid was sent for culture. Thus far no organisms seen on Gram stain but we are waiting culture. He is receiving Rocephin. PT wound care has been involved. Labs today show a WBC of 9.78. Hemoglobin is steady at 8.5. Platelet 164,000. Neutrophils are within normal limits at 62.2%. Sodium is 139. Potassium 3.8. Chloride 96. Carbon oxide 29. Anion gap is 17.8. BUN is 19. Creatinine 0.8. GFR greater than 60. Calcium is 8.2. Magnesium 2.1. Total bilirubin 1.4. AST is 29, ALT 27, alkaline phosphatase 48. CK is 332. Protein is 6.3. Albumin 3.1. We will give gentle IV hydration today due to his continued elevated CK. Will resume home warfarin with pharmacy to dose and start DVT prophylaxis lovenox for now. Discharge in 1 to 2 days pending continued stability. - Plan Plan:: Fracture of proximal end of right fibula Contusion of left lower extremity Contusion of right hip, initial encounter Contusion of right lower leg, initial encounter Lower extremity cellulitis, suspected Elevated CK * Daily labs * Weightbearing as tolerated lower extremities * Monitor bilateral lower extremity pulses at least BID * Contacted Dr. Gaitan, on-call orthopedics within [facility] in [place]. * Recommended compression stockings bilaterally * WBAT * Monitor for compartment syndrome * Follow-up with orthopedics within 10-14 days of discharge * PT/OT * CM/SW consult * Pain medications as ordered * O2 as needed to keep saturations >90% * BID colace for constipation/narcotic use * Given 1 unit PRBC on 01/25/2021 * Started on 1gm IV Rocephin for empiric therapy due to concerns over leg infection/blistering * PT wound care Paroxysmal atrial fibrillation Chronic anticoagulation History of [place] (myocardial infarction) History of heart artery stent * Hold ASA and warfarin due to worsening hgb * Telemetry Arthritis Chronic back pain Osteoarthritis * Pain medications as ordered * PT/OT * No acute concerns HLD (hyperlipidemia) * No acute concerns * Hold home statin for now HTN (hypertension) * No acute concerns * Monitor vital signs * Home BP meds as ordered COPD (chronic obstructive pulmonary disease) * No acute concerns * Home albuterol MDI PRN * Duonebs if needed * Continue to monitor Code status: Full code PCP: Dr. Madelin Rincon at [facility] in [place]. DVT prophylaxis: Home warfarin resumed. SCDs and GUERRERO hose contraindicated due to lower extremity wounds. We will start DVT prophylactic Lovenox. Disposition: Patient admitted to medical floor for further pain control and PT OT due to femur fracture and significant hematomas. Upgraded to telemetry given cardiac history. Likely discharge in 1-2 days pending stable hgb and labs <Anton Johnson Jr - Last Filed: 01/27/21 16:45> - Patient Data Vitals - Most Recent: Last Vital Signs Temp 98.6 F 01/27/21 08:50 Pulse 81 01/27/21 08:50 Resp 18 01/27/21 08:50 BP 133/89 01/27/21 08:52 Pulse Ox 96 01/27/21 08:50 I&O - Last 24 Hours: Intake & Output 01/27/21 01/27/21 01/27/21 06:59 14:59 22:59 Intake Total 300 200 240 Output Total 1150 Balance -850 200 240 Lab Results Last 24 Hours: Laboratory Results - last 24 hr 01/27/21 01/27/21 Range/Units 04:49 04:49 WBC 9.78 H (4.23-9.07) K/mm3 RBC 2.81 L (4.63-6.08) M/mm3 Hgb 8.5 L (13.7-17.5) gm/dl Hct 26.2 L (40.1-51.0) % MCV 93.2 H (79.0-92.2) fl MCH 30.2 (25.7-32.2) pg MCHC 32.4 (32.2-35.5) g/dl RDW Std Deviation 45.6 H (35.1-43.9) fL Plt Count 164 (163-337) K/mm3 MPV 10.4 (9.4-12.3) fl Neut % (Auto) 62.2 (34.0-67.9) % Lymph % (Auto) 21.4 L (21.8-53.1) % [place] % (Auto) 12.0 (5.3-12.2) % Eos % (Auto) 2.7 (0.8-7.0) Baso % (Auto) 0.6 (0.1-1.2) % Neut # (Auto) 6.09 H (1.78-5.38) K/mm3 Lymph # (Auto) 2.09 (1.32-3.57) K/mm3 [place] # (Auto) 1.17 H (0.30-0.82) K/mm3 Eos # (Auto) 0.26 (0.04-0.54) K/mm3 Baso # (Auto) 0.06 (0.01-0.08) K/mm3 Manual Slide Review Abnormal smear Sodium 139 (136-145) mEq/L Potassium 3.8 (3.5-5.1) mEq/L Chloride 96 L (98-107) mEq/L Carbon Dioxide 29 (21-32) mEq/L Anion Gap 17.8 H (5-15) BUN 19 H (7-18) mg/dL Creatinine 0.9 (0.7-1.3) mg/dL Est Cr Clr Drug Dosing 73.10 mL/min Estimated GFR (MDRD) > 60 (>60) mL/min BUN/Creatinine Ratio 21.1 H (14-18) Glucose 103 H (70-99) mg/dL Calcium 8.2 L (8.5-10.1) mg/dL Magnesium 2.1 (1.8-2.4) mg/dL Total Bilirubin 1.4 H (0.2-1.0) mg/dL AST 29 (15-37) U/L ALT 27 (16-63) U/L Alkaline Phosphatase 48 (46-116) U/L Creatine Kinase 332 H (39-308) U/L Total Protein 6.3 L (6.4-8.2) g/dl Albumin 3.1 L (3.4-5.0) g/dl Globulin 3.2 gm/dL Albumin/Globulin Ratio 1.0 (1-2) Francesco Results Last 24 Hours: Microbiology 01/26/21 12:44 Aerobic Culture - Preliminary Leg, Right Gram Stain - Final Med Orders - Current: Current Medications Acetaminophen (Acetaminophen 325 Mg Tab) 650 mg PO TID [facility] Last Admin: 01/27/21 15:28 Dose: 650 mg Documented by: Albuterol (Albuterol 6.7 Gm Inhaler) 0 gm INH Q4H PRN PRN Reason: Shortness of Breath Albuterol/Ipratropium (Albuterol/Ipratropium 3.0-0.5 Mg/3 Ml Neb Soln) 3 ml NEB QIDRT PRN PRN Reason: Shortness Of Breath/wheezing Amlodipine Besylate (Amlodipine 2.5 Mg Tab) 2.5 mg PO DAILY [facility] Last Admin: 01/27/21 08:52 Dose: 2.5 mg Documented by: Cyclobenzaprine HCl (Cyclobenzaprine 10 Mg Tab) 10 mg PO TID [facility] Last Admin: 01/27/21 15:27 Dose: 10 mg Documented by: Docusate Sodium (Docusate Sodium 100 Mg Cap) 100 mg PO Q12H [facility] Last Admin: 01/27/21 08:52 Dose: 100 mg Documented by: Enoxaparin Sodium (Enoxaparin 40 Mg/0.4 Ml Syringe) 40 mg SUBCUT DAILY [facility] Last Admin: 01/27/21 11:54 Dose: 40 mg Documented by: Gabapentin (Gabapentin 300 Mg Cap) 300 mg PO BEDTIME [facility] Last Admin: 01/26/21 20:41 Dose: 300 mg Documented by: Hydromorphone HCl (Hydromorphone 1 Mg/Ml Syringe) 1 mg IVPUSH Q1H PRN PRN Reason: Pain (severe 7-10) Last Admin: 01/26/21 20:36 Dose: 1 mg Documented by: Ceftriaxone Sodium 1 gm/ (Sodium Chloride) 100 mls @ 200 mls/hr IV Q24H [facility] Last Admin: 01/27/21 13:42 Dose: 200 mls/hr Documented by: Sodium Chloride (Normal Saline) 1,000 mls @ 75 mls/hr IV ASDIRECTED [facility] Stop: 01/28/21 21:19 Last Admin: 01/27/21 10:13 Dose: 75 mls/hr Documented by: Isosorbide Mononitrate (Isosorbide Mononitrate 60 Mg Tab.Er) 60 mg PO DAILY [facility] Last Admin: 01/27/21 08:50 Dose: 60 mg Documented by: Metoprolol Succinate (Metoprolol Succinate 25 Mg Tab.Er) 50 mg PO DAILY [facility] Last Admin: 01/27/21 08:50 Dose: 50 mg Documented by: Ondansetron HCl (Ondansetron 4 Mg/2 Ml Sdv) 4 mg IVPUSH Q6H PRN PRN Reason: Nausea Oxycodone HCl (Oxycodone 5 Mg Tab) 5 - 10 mg PO Q4H PRN PRN Reason: Pain Last Admin: 01/27/21 13:42 Dose: 10 mg Documented by: Polyethylene Glycol (Polyethylene Glycol 3350 Powder 17 Gm Packet) 17 gm PO ASDIRECTED PRN PRN Reason: Constipation Last Admin: 01/25/21 08:18 Dose: 17 gm Documented by: Warfarin Sodium (Pharmacy To Dose - Warfarin) 1 dose .XX ASDIRECTED [facility] Warfarin Sodium (Warfarin 5 Mg Tab) 5 mg PO ONETIME ONE Stop: 01/27/21 18:01 Discontinued Medications Acetaminophen (Acetaminophen 325 Mg Tab) 650 mg PO Q4H PRN PRN Reason: Pain (Mild 1-3)/fever Last Admin: 01/23/21 21:51 Dose: 650 mg Documented by: Cyclobenzaprine HCl (Cyclobenzaprine 10 Mg Tab) 5 mg PO TID PRN PRN Reason: Muscle Spasm - Painful Last Admin: 01/24/21 14:16 Dose: 5 mg Documented by: Docusate Sodium (Docusate Sodium 100 Mg Cap) 100 mg PO Q12H PRN PRN Reason: Constipation Furosemide (Furosemide 20 Mg/2 Ml Vial) 20 mg IVPUSH ONETIME ONE Stop: 01/26/21 10:17 Last Admin: 01/26/21 11:20 Dose: 20 mg Documented by: Hydromorphone HCl (Hydromorphone 0.5 Mg/0.5 Ml Syringe) 0.5 mg IVPUSH ONETIME ONE Stop: 01/22/21 18:46 Last Admin: 01/22/21 19:00 Dose: 0.5 mg Documented by: Hydromorphone HCl (Hydromorphone 0.5 Mg/0.5 Ml Syringe) 0.5 mg IVPUSH ONETIME ONE Stop: 01/22/21 19:51 Last Admin: 01/22/21 20:04 Dose: 0.5 mg Documented by: Hydromorphone HCl (Hydromorphone 0.5 Mg/0.5 Ml Syringe) 0.5 mg IVPUSH Q2H PRN PRN Reason: Pain Last Admin: 01/24/21 14:16 Dose: 0.5 mg Documented by: Dextrose/Sodium Chloride (Dextrose 5%-Normal Saline) 1,000 mls @ 150 mls/hr IV ASDIRECTED [facility] Lactated Ringer's (Ringers, Lactated) 500 mls @ 250 mls/hr IV ONETIME ONE Stop: 01/25/21 09:44 Last Admin: 01/25/21 07:52 Dose: 250 mls/hr Documented by: Sodium Chloride (Normal Saline) 250 mls @ 100 mls/hr IV ASDIRECTED [facility] Last Admin: 01/25/21 18:33 Dose: 100 mls/hr Documented by: Lidocaine HCl (Xylocaine-Mpf 1%) Confirm Administered Dose 2 mls @ as directed .ROUTE .STK-MED ONE Stop: 01/27/21 14:48 Lorazepam (Lorazepam 2 Mg/Ml Sdv) 1 mg IVPUSH ONETIME ONE Stop: 01/22/21 16:52 Last Admin: 01/22/21 17:50 Dose: Not Given Documented by: Metoclopramide HCl (Metoclopramide 10 Mg/2 Ml Sdv) 10 mg IVPUSH ONETIME ONE Stop: 01/22/21 16:51 Last Admin: 01/22/21 17:51 Dose: Not Given Documented by: Ondansetron HCl (Ondansetron 4 Mg/2 Ml Sdv) 4 mg IVPUSH ONETIME ONE Stop: 01/22/21 18:46 Last Admin: 01/22/21 19:00 Dose: 4 mg Documented by: Oxycodone/Acetaminophen (Acetaminophen/Oxycodone 325-5 Mg Tab) 1 tab PO Q4H PRN PRN Reason: Pain (moderate 4-6) Last Admin: 01/24/21 12:00 Dose: 1 tab Documented by: - Patient Data Lab Results Last 24 hrs: Laboratory Results - last 24 hr 01/27/21 01/27/21 Range/Units 04:49 04:49 WBC 9.78 H (4.23-9.07) K/mm3 RBC 2.81 L (4.63-6.08) M/mm3 Hgb 8.5 L (13.7-17.5) gm/dl Hct 26.2 L (40.1-51.0) % MCV 93.2 H (79.0-92.2) fl MCH 30.2 (25.7-32.2) pg MCHC 32.4 (32.2-35.5) g/dl RDW Std Deviation 45.6 H (35.1-43.9) fL Plt Count 164 (163-337) K/mm3 MPV 10.4 (9.4-12.3) fl Neut % (Auto) 62.2 (34.0-67.9) % Lymph % (Auto) 21.4 L (21.8-53.1) % [place] % (Auto) 12.0 (5.3-12.2) % Eos % (Auto) 2.7 (0.8-7.0) Baso % (Auto) 0.6 (0.1-1.2) % Neut # (Auto) 6.09 H (1.78-5.38) K/mm3 Lymph # (Auto) 2.09 (1.32-3.57) K/mm3 [place] # (Auto) 1.17 H (0.30-0.82) K/mm3 Eos # (Auto) 0.26 (0.04-0.54) K/mm3 Baso # (Auto) 0.06 (0.01-0.08) K/mm3 Manual Slide Review Abnormal smear Sodium 139 (136-145) mEq/L Potassium 3.8 (3.5-5.1) mEq/L Chloride 96 L (98-107) mEq/L Carbon Dioxide 29 (21-32) mEq/L Anion Gap 17.8 H (5-15) BUN 19 H (7-18) mg/dL Creatinine 0.9 (0.7-1.3) mg/dL Est Cr Clr Drug Dosing 73.10 mL/min Estimated GFR (MDRD) > 60 (>60) mL/min BUN/Creatinine Ratio 21.1 H (14-18) Glucose 103 H (70-99) mg/dL Calcium 8.2 L (8.5-10.1) mg/dL Magnesium 2.1 (1.8-2.4) mg/dL Total Bilirubin 1.4 H (0.2-1.0) mg/dL AST 29 (15-37) U/L ALT 27 (16-63) U/L Alkaline Phosphatase 48 (46-116) U/L Creatine Kinase 332 H (39-308) U/L Total Protein 6.3 L (6.4-8.2) g/dl Albumin 3.1 L (3.4-5.0) g/dl Globulin 3.2 gm/dL Albumin/Globulin Ratio 1.0 (1-2) Result Diagrams: 01/27/21 04:49 01/27/21 04:49 Francesco Results Last 24 hrs: Microbiology 01/26/21 12:44 Aerobic Culture - Preliminary Leg, Right Gram Stain - Final Sepsis Event Note - Focused Exam Vital Signs: Vital Signs Temp Pulse Resp BP Pulse Ox 01/27/21 08:52 133/89 01/27/21 08:50 98.6 F 81 18 133/89 96 01/27/21 08:00 96 - Plan Plan:: Case discussed in full. Agree with evaluation, assessment and plan.
[2021-01-27] MEDS: Isosorbide Mononitrate 60 MG Tab.ER PO SCH (08:50)
[2021-01-27] MEDS: Metoprolol Succinate 25 MG Tab.ER PO SCH (08:50)
[2021-01-27] MEDS: Acetaminophen 325 MG Tab PO SCH ×3 (08:51→20:41)
[2021-01-27] MEDS: amLODIPine 2.5 MG Tab PO SCH (08:52)
[2021-01-27] MEDS: Docusate Sodium 100 MG Cap PO SCH ×3 (08:52→21:07)
[2021-01-27] MEDS: Cyclobenzaprine 10 MG Tab PO SCH ×3 (08:52→20:41)
[2021-01-27] MEDS: Sodium Chloride 0.9% 1,000 ML IV SCH (10:13)
--- NOTE | 2021-01-27 10:44 | PCM.SN.2 ---
- Free Text/Narrative Note: Notified that patient was in need of a PIV. Patient has a history of a difficult PIV start. PIV long 20 g placed in left upper arm with ultrasound with 2 attempts. Blood return noted, flushed easily, no signs of infiltration or phlebitis. PIV secured with clear Tegaderm and tape. Patient tolerated well. RN at bedside and aware of successful placement. Lidia Ivy, CHIP PERSON
[2021-01-27] MEDS: Enoxaparin 40 MG/0.4 ML Syringe SUBCUT SCH (11:54)
[2021-01-27] MEDS: cefTRIAXone 1 GM in Sodium Chloride 0.9% 100 ML IV SCH (13:42)
[2021-01-27] MEDS ORDERED: Lidocaine 1% 2 ML ONE (14:47)
--- NOTE | 2021-01-27 15:45 | PCM.SN.2 ---
- Free Text/Narrative Note: Notified that the RN was questioning if PIV was infiltrated. Assessed patient's PIV on arrival to right upper arm (which was placed earlier today). PIV flushed well but no blood return noted. Patient's right upper arm was soft around PIV but did appear slightly swollen in comparison to left arm. Site was localized wi th a skin wheal 0.3 ml of 1% lidocaine. Long 20 g placed in left upper arm with ultrasound with 2 attempts. Blood return noted, flushed easily, no signs of infiltration or phlebitis. PIV secured with clear Tegaderm and tape. Patient tolerated well. RN at bedside and aware of successful placement. Lidia Ivy [employer]ILDR[employer]S PROGRAM COORDINATOR
[2021-01-27] MEDS ORDERED: Warfarin 5 MG Tab PO ONE (18:00)
[2021-01-27] MEDS: Gabapentin 300 MG Cap PO SCH (20:41)
[2021-01-28] MEDS: Sodium Chloride 0.9% 1,000 ML IV SCH (02:08)
[2021-01-28] MEDS: oxyCODONE 5 MG Tab PO PRN ×4 (02:46→20:53)
--- NOTE | 2021-01-28 07:23 | PCM.PN ---
<Spike Sorto - Last Filed: 01/28/21 09:48> - General Info Date of Service: 01/28/21 Admission Dx/Problem (Free Text): Admission Diagnosis/Problem Admission Diagnosis/Problem Hematoma and contusion Functional Status: Reports: Pain Controlled, Tolerating Diet, Ambulating, Urinating. Denies: New Symptoms - Review of Systems General: Reports: Weakness (improving ). Denies: Fever, Fatigue, Malaise, Chil ls HEENT: Reports: No Symptoms Pulmonary: Reports: No Symptoms. Denies: Shortness of Breath, Cough, Sputum, Wheezing Cardiovascular: Reports: Edema. Denies: Chest Pain, Palpitations, Dyspnea on Exertion Gastrointestinal: Reports: No Symptoms. Denies: Abdominal Pain, Constipation, Diarrhea, Nausea, Vomiting Genitourinary: Reports: No Symptoms. Denies: Pain Musculoskeletal: Reports: Leg Pain Skin: Reports: No Symptoms Neurological: Reports: Difficulty Walking, Weakness, Gait Disturbance. Denies: Confusion, Headache, Numbness, Syncope, Tingling Psychiatric: Reports: No Symptoms - Patient Data Vitals - Most Recent: Last Vital Signs Temp 99.1 F 01/28/21 02:47 Pulse 78 01/28/21 02:47 Resp 20 01/28/21 02:47 BP 117/63 01/28/21 02:47 Pulse Ox 93 L 01/28/21 02:47 Weight - Most Recent: 270 lb 1.6 oz I&O - Last 24 Hours: Intake & Output 01/27/21 01/28/21 01/28/21 22:59 06:59 14:59 Intake Total 1440 Output Total 1000 1100 Balance 440 -1100 Lab Results Last 24 Hours: Laboratory Results - last 24 hr 01/28/21 01/28/21 01/28/21 Range/Units 04:55 04:55 04:55 WBC 8.86 (4.23-9.07) K/mm3 RBC 2.81 L (4.63-6.08) M/mm3 Hgb 8.5 L (13.7-17.5) gm/dl Hct 26.5 L (40.1-51.0) % MCV 94.3 H (79.0-92.2) fl MCH 30.2 (25.7-32.2) pg MCHC 32.1 L (32.2-35.5) g/dl RDW Std Deviation 46.7 H (35.1-43.9) fL Plt Count 179 (163-337) K/mm3 MPV 10.2 (9.4-12.3) fl Neut % (Auto) 63.7 (34.0-67.9) % Lymph % (Auto) 22.2 (21.8-53.1) % [place] % (Auto) 10.8 (5.3-12.2) % Eos % (Auto) 2.1 (0.8-7.0) Baso % (Auto) 0.3 (0.1-1.2) % Neut # (Auto) 5.63 H (1.78-5.38) K/mm3 Lymph # (Auto) 1.97 (1.32-3.57) K/mm3 [place] # (Auto) 0.96 H (0.30-0.82) K/mm3 Eos # (Auto) 0.19 (0.04-0.54) K/mm3 Baso # (Auto) 0.03 (0.01-0.08) K/mm3 PT 10.3 (9.7-12.0) SECONDS INR 0.96 Sodium 139 (136-145) mEq/L Potassium 3.8 (3.5-5.1) mEq/L Chloride 105 (98-107) mEq/L Carbon Dioxide 26 (21-32) mEq/L Anion Gap 11.8 (5-15) BUN 20 H (7-18) mg/dL Creatinine 0.8 (0.7-1.3) mg/dL Est Cr Clr Drug Dosing 82.24 mL/min Estimated GFR (MDRD) > 60 (>60) mL/min BUN/Creatinine Ratio 25.0 H (14-18) Glucose 104 H (70-99) mg/dL Calcium 8.7 (8.5-10.1) mg/dL Total Bilirubin 1.5 H (0.2-1.0) mg/dL AST 32 (15-37) U/L ALT 34 (16-63) U/L Alkaline Phosphatase 64 (46-116) U/L Creatine Kinase 253 (39-308) U/L Total Protein 6.4 (6.4-8.2) g/dl Albumin 3.1 L (3.4-5.0) g/dl Globulin 3.3 gm/dL Albumin/Globulin Ratio 0.9 L (1-2) Francesco Results Last 24 Hours: Microbiology 01/26/21 12:44 Aerobic Culture - Preliminary Leg, Right Gram Stain - Final Med Orders - Current: Current Medications Acetaminophen (Acetaminophen 325 Mg Tab) 650 mg PO TID [facility] Last Admin: 01/27/21 20:41 Dose: 650 mg Documented by: Albuterol (Albuterol 6.7 Gm Inhaler) 0 gm INH Q4H PRN PRN Reason: Shortness of Breath Albuterol/Ipratropium (Albuterol/Ipratropium 3.0-0.5 Mg/3 Ml Neb Soln) 3 ml NEB QIDRT PRN PRN Reason: Shortness Of Breath/wheezing Amlodipine Besylate (Amlodipine 2.5 Mg Tab) 2.5 mg PO DAILY [facility] Last Admin: 01/27/21 08:52 Dose: 2.5 mg Documented by: Cyclobenzaprine HCl (Cyclobenzaprine 10 Mg Tab) 10 mg PO TID [facility] [place] Last Admin: 01/27/21 20:41 Dose: 10 mg Documented by: Docusate Sodium (Docusate Sodium 100 Mg Cap) 100 mg PO Q12H [facility] Last Admin: 01/27/21 21:07 Dose: Not Given Documented by: Enoxaparin Sodium (Enoxaparin 40 Mg/0.4 Ml Syringe) 40 mg SUBCUT DAILY [facility] Last Admin: 01/27/21 11:54 Dose: 40 mg Documented by: Gabapentin (Gabapentin 300 Mg Cap) 300 mg PO BEDTIME [facility] Last Admin: 01/27/21 20:41 Dose: 300 mg Documented by: Hydromorphone HCl (Hydromorphone 1 Mg/Ml Syringe) 1 mg IVPUSH Q1H PRN PRN Reason: Pain (severe 7-10) Last Admin: 01/26/21 20:36 Dose: 1 mg Documented by: Ceftriaxone Sodium 1 gm/ (Sodium Chloride) 100 mls @ 200 mls/hr IV Q24H [facility] Last Admin: 01/27/21 13:42 Dose: 200 mls/hr Documented by: Sodium Chloride (Normal Saline) 1,000 mls @ 75 mls/hr IV ASDIRECTED [facility] Stop: 01/28/21 21:19 Last Admin: 01/28/21 02:08 Dose: 75 mls/hr Documented by: Isosorbide Mononitrate (Isosorbide Mononitrate 60 Mg Tab.Er) 60 mg PO DAILY [facility] [place] Last Admin: 01/27/21 08:50 Dose: 60 mg Documented by: Metoprolol Succinate (Metoprolol Succinate 25 Mg Tab.Er) 50 mg PO DAILY [facility] [place] Last Admin: 01/27/21 08:50 Dose: 50 mg Documented by: Ondansetron HCl (Ondansetron 4 Mg/2 Ml Sdv) 4 mg IVPUSH Q6H PRN PRN Reason: Nausea Oxycodone HCl (Oxycodone 5 Mg Tab) 5 - 10 mg PO Q4H PRN PRN Reason: Pain Last Admin: 01/28/21 07:13 Dose: 10 mg Documented by: Polyethylene Glycol (Polyethylene Glycol 3350 Powder 17 Gm Packet) 17 gm PO ASDIRECTED PRN PRN Reason: Constipation Last Admin: 01/25/21 08:18 Dose: 17 gm Documented by: Warfarin Sodium (Pharmacy To Dose - Warfarin) 1 dose .XX ASDIRECTED [facility] Discontinued Medications Acetaminophen (Acetaminophen 325 Mg Tab) 650 mg PO Q4H PRN PRN Reason: Pain (Mild 1-3)/fever Last Admin: 01/23/21 21:51 Dose: 650 mg Documented by: Cyclobenzaprine HCl (Cyclobenzaprine 10 Mg Tab) 5 mg PO TID PRN PRN Reason: Muscle Spasm - Painful Last Admin: 01/24/21 14:16 Dose: 5 mg Documented by: Docusate Sodium (Docusate Sodium 100 Mg Cap) 100 mg PO Q12H PRN PRN Reason: Constipation Furosemide (Furosemide 20 Mg/2 Ml Vial) 20 mg IVPUSH ONETIME ONE Stop: 01/26/21 10:17 Last Admin: 01/26/21 11:20 Dose: 20 mg Documented by: Hydromorphone HCl (Hydromorphone 0.5 Mg/0.5 Ml Syringe) 0.5 mg IVPUSH ONETIME ONE Stop: 01/22/21 18:46 Last Admin: 01/22/21 19:00 Dose: 0.5 mg Documented by: Hydromorphone HCl (Hydromorphone 0.5 Mg/0.5 Ml Syringe) 0.5 mg IVPUSH ONETIME ONE Stop: 01/22/21 19:51 Last Admin: 01/22/21 20:04 Dose: 0.5 mg Documented by: Hydromorphone HCl (Hydromorphone 0.5 Mg/0.5 Ml Syringe) 0.5 mg IVPUSH Q2H PRN PRN Reason: Pain Last Admin: 01/24/21 14:16 Dose: 0.5 mg Documented by: Dextrose/Sodium Chloride (Dextrose 5%-Normal Saline) 1,000 mls @ 150 mls/hr IV ASDIRECTED [facility] Lactated Ringer's (Ringers, Lactated) 500 mls @ 250 mls/hr IV ONETIME ONE Stop: 01/25/21 09:44 Last Admin: 01/25/21 07:52 Dose: 250 mls/hr Documented by: Sodium Chloride (Normal Saline) 250 mls @ 100 mls/hr IV ASDIRECTED [facility] [place] Last Admin: 01/25/21 18:33 Dose: 100 mls/hr Documented by: Lidocaine HCl (Xylocaine-Mpf 1%) Confirm Administered Dose 2 mls @ as directed .ROUTE .STK-MED ONE Stop: 01/27/21 14:48 Lorazepam (Lorazepam 2 Mg/Ml Sdv) 1 mg IVPUSH ONETIME ONE Stop: 01/22/21 16:52 Last Admin: 01/22/21 17:50 Dose: Not Given Documented by: Metoclopramide HCl (Metoclopramide 10 Mg/2 Ml Sdv) 10 mg IVPUSH ONETIME ONE Stop: 01/22/21 16:51 Last Admin: 01/22/21 17:51 Dose: Not Given Documented by: Ondansetron HCl (Ondansetron 4 Mg/2 Ml Sdv) 4 mg IVPUSH ONETIME ONE Stop: 01/22/21 18:46 Last Admin: 01/22/21 19:00 Dose: 4 mg Documented by: Oxycodone/Acetaminophen (Acetaminophen/Oxycodone 325-5 Mg Tab) 1 tab PO Q4H PRN PRN Reason: Pain (moderate 4-6) Last Admin: 01/24/21 12:00 Dose: 1 tab Documented by: Warfarin Sodium (Warfarin 5 Mg Tab) 5 mg PO ONETIME ONE Stop: 01/27/21 18:01 Last Admin: 01/27/21 18:26 Dose: 5 mg Documented by: - Exam Quality Assessment: DVT Prophylaxis. No: Supplemental Oxygen, Urine Catheter General: Alert, Oriented, Cooperative, No Acute Distress HEENT: Pupils Equal, Pupils Reactive, Mucous Membr. Moist/[place] Neck: Supple, Trachea Midline Lungs: Clear to Auscultation, Normal Respiratory Effort Cardiovascular: Regular Rate, Regular Rhythm GI/Abdominal Exam: Normal Bowel Sounds, Soft, Non-Tender, No Distention (Male) Exam: Deferred Back Exam: Normal Inspection, Full Range of Motion Extremities: Normal Inspection, Normal Range of Motion, Non-Tender, Normal Capillary Refill, Pedal Edema, Leg Pain, Other (Wounds bilaterally to the lateral aspects of both legs. Bandage in place. Blistering has been debrided.) Peripheral Pulses: 1+: Dorsalis Pedis (L), Dorsalis Pedis (R), 2+: Radial (L), Radial (R) Skin: Warm, Dry, Intact Wound/Incisions: Healing Well, Drainage. No: Erythema Neurological: No New Focal Deficit Psy/Mental Status: Alert, Normal Affect, Normal Mood - Patient Data Lab Results Last 24 hrs: Laboratory Results - last 24 hr 01/28/21 01/28/21 01/28/21 Range/Units 04:55 04:55 04:55 WBC 8.86 (4.23-9.07) K/mm3 RBC 2.81 L (4.63-6.08) M/mm3 Hgb 8.5 L (13.7-17.5) gm/dl Hct 26.5 L (40.1-51.0) % MCV 94.3 H (79.0-92.2) fl MCH 30.2 (25.7-32.2) pg MCHC 32.1 L (32.2-35.5) g/dl RDW Std Deviation 46.7 H (35.1-43.9) fL Plt Count 179 (163-337) K/mm3 MPV 10.2 (9.4-12.3) fl Neut % (Auto) 63.7 (34.0-67.9) % Lymph % (Auto) 22.2 (21.8-53.1) % [place] % (Auto) 10.8 (5.3-12.2) % Eos % (Auto) 2.1 (0.8-7.0) Baso % (Auto) 0.3 (0.1-1.2) % Neut # (Auto) 5.63 H (1.78-5.38) K/mm3 Lymph # (Auto) 1.97 (1.32-3.57) K/mm3 [place] # (Auto) 0.96 H (0.30-0.82) K/mm3 Eos # (Auto) 0.19 (0.04-0.54) K/mm3 Baso # (Auto) 0.03 (0.01-0.08) K/mm3 PT 10.3 (9.7-12.0) SECONDS INR 0.96 Sodium 139 (136-145) mEq/L Potassium 3.8 (3.5-5.1) mEq/L Chloride 105 (98-107) mEq/L Carbon Dioxide 26 (21-32) mEq/L Anion Gap 11.8 (5-15) BUN 20 H (7-18) mg/dL Creatinine 0.8 (0.7-1.3) mg/dL Est Cr Clr Drug Dosing 82.24 mL/min Estimated GFR (MDRD) > 60 (>60) mL/min BUN/Creatinine Ratio 25.0 H (14-18) Glucose 104 H (70-99) mg/dL Calcium 8.7 (8.5-10.1) mg/dL Total Bilirubin 1.5 H (0.2-1.0) mg/dL AST 32 (15-37) U/L ALT 34 (16-63) U/L Alkaline Phosphatase 64 (46-116) U/L Creatine Kinase 253 (39-308) U/L Total Protein 6.4 (6.4-8.2) g/dl Albumin 3.1 L (3.4-5.0) g/dl Globulin 3.3 gm/dL Albumin/Globulin Ratio 0.9 L (1-2) Result Diagrams: 01/28/21 04:55 01/28/21 04:55 Francesco Results Last 24 hrs: Microbiology 01/26/21 12:44 Aerobic Culture - Preliminary Leg, Right Gram Stain - Final Sepsis Event Note - Evaluation Sepsis Screening Result: No Definite Risk - Focused Exam Vital Signs: Vital Signs Temp Pulse Resp BP Pulse Ox 01/28/21 02:47 99.1 F 78 20 117/63 93 L 01/27/21 20:39 99.5 F 81 18 129/50 L 93 L - Problem List & Annotations (1) Chronic anticoagulation SNOMED Code(s): 330835837 Code(s): Z79.01 - FCI (CURRENT) USE OF ANTICOAGULANTS Status: Chronic Priority: High Current Visit: Yes (2) HLD (hyperlipidemia) SNOMED Code(s): 49217277 Code(s): E78.5 - HYPERLIPIDEMIA, UNSPECIFIED Status: Chronic Priority: Low Current Visit: No Qualifiers: Hyperlipidemia type: unspecified Qualified Code(s): E78.5 - Hyperlipidemia, unspecified (3) HTN (hypertension) SNOMED Code(s): 38505568 Code(s): I10 - ESSENTIAL (PRIMARY) HYPERTENSION Status: Chronic Priority: Medium Current Visit: No Qualifiers: Hypertension type: unspecified Qualified Code(s): I10 - Essential (primary) hypertension (4) History of AR (myocardial infarction) SNOMED Code(s): 165534886 Code(s): I25.2 - OLD MYOCARDIAL INFARCTION Status: Chronic Priority: Low Current Visit: No (5) History of heart artery stent SNOMED Code(s): 309273329, 891887064 Code(s): Z95.5 - PRESENCE OF CORONARY ANGIOPLASTY IMPLANT AND GRAFT Status: Chronic Priority: Low Current Visit: No (6) COPD (chronic obstructive pulmonary disease) SNOMED Code(s): 66878269 Code(s): J44.9 - CHRONIC OBSTRUCTIVE PULMONARY DISEASE, UNSPECIFIED Status: Chronic Priority: Medium Current Visit: No Qualifiers: COPD type: unspecified COPD Qualified Code(s): J44.9 - Chronic obstructive pulmonary disease, unspecified (7) Arthritis SNOMED Code(s): 3346018 Code(s): M19.90 - UNSPECIFIED OSTEOARTHRITIS, UNSPECIFIED SITE Status: Chronic Priority: Low Current Visit: No (8) Chronic back pain SNOMED Code(s): 706543924 Code(s): M54.9 - DORSALGIA, UNSPECIFIED; G89.29 - OTHER CHRONIC PAIN Status: Chronic Priority: Low Current Visit: No Qualifiers: Back pain location: back pain in unspecified location Back pain laterality: unspecified Qualified Code(s): M54.9 - Dorsalgia, unspecified; G89.29 - Other chronic pain (9) Osteoarthritis SNOMED Code(s): 024071113 Code(s): M19.90 - UNSPECIFIED OSTEOARTHRITIS, UNSPECIFIED SITE Status: Chronic Priority: Low Current Visit: No Qualifiers: Osteoarthritis location: multiple joints Osteoarthritis type: primary Qualified Code(s): M89.49 - Other hypertrophic osteoarthropathy, multiple sites (10) Contusion of left lower extremity SNOMED Code(s): 51357496 Code(s): S80.12XA - CONTUSION OF LEFT LOWER LEG, INITIAL ENCOUNTER Status: Acute Priority: High Current Visit: Yes Qualifiers: Encounter type: initial encounter Qualified Code(s): S80.12XA - Contusion of left lower leg, initial encounter (11) Contusion of right hip, initial encounter SNOMED Code(s): 11598706 Code(s): S70.01XA - CONTUSION OF RIGHT HIP, INITIAL ENCOUNTER Status: Acute Priority: High Current Visit: Yes (12) Contusion of right lower leg, initial encounter SNOMED Code(s): 97024757544780297 Code(s): S80.11XA - CONTUSION OF RIGHT LOWER LEG, INITIAL ENCOUNTER Status: Acute Priority: High Current Visit: Yes (13) Fracture of proximal end of right fibula SNOMED Code(s): 48046103 Code(s): S82.831A - OTH FRACTURE OF UPPER AND LOWER END OF RIGHT FIBULA, INIT Status: Acute Priority: High Current Visit: Yes Qualifiers: Encounter type: initial encounter Fracture type: closed Fracture morphology: other fracture Qualified Code(s): S82.831A - Other fracture of upper and lower end of right fibula, initial encounter for closed fracture (14) Paroxysmal atrial fibrillation SNOMED Code(s): 139093814 Code(s): I48.0 - PAROXYSMAL ATRIAL FIBRILLATION Status: Chronic Priority: Medium Current Visit: No (15) Lower extremity cellulitis SNOMED Code(s): 310054522 Code(s): L03.119 - CELLULITIS OF UNSPECIFIED PART OF LIMB Status: Suspected Priority: High Current Visit: Yes Qualifiers: Laterality: right Qualified Code(s): L03.115 - Cellulitis of right lower limb (16) Elevated CK SNOMED Code(s): 970145654 Code(s): R74.8 - ABNORMAL LEVELS OF OTHER SERUM ENZYMES Status: Acute Priority: High Current Visit: Yes - Problem List Review Problem List Initiated/Reviewed/Updated: Yes - My Orders Last 24 Hours: My Active Orders 01/27/21 08:00 Sodium Chloride 0.9% [Normal Saline] 1,000 ml IV ASDIRECTED 01/27/21 10:34 Enoxaparin [Lovenox] 40 mg SUBCUT DAILY 01/27/21 10:45 Pharmacy to Dose - Warfarin 1 dose .XX ASDIRECTED 01/29/21 05:11 CBC WITH AUTO DIFF [HEME] AM CMP [COMPREHENSIVE METABOLIC PN,CMP] [CHEM] AM CREATINE KINASE,CK [CHEM] AM 01/30/21 05:11 CBC WITH AUTO DIFF [HEME] AM CMP [COMPREHENSIVE METABOLIC PN,CMP] [CHEM] AM CREATINE KINASE,CK [CHEM] AM 01/31/21 05:11 CBC WITH AUTO DIFF [HEME] AM - Assessment Assessment:: Assessment - 01/23/2021 (admitted evening of 01/22/2021) * 71-year male who presents to our ED on the evening of 01/22/2021 after workplace injury at the [employer] * History of proximal A. fib, chronic anticoagulation on Coumadin, HLD, HTN, AR with 2 stents placed, COPD, arthritis, chronic back pain, osteoarthritis * Struck by a ball and slammed into a steel [place] fence. * Struck on the left side which resulted in right lower extremity and hip pain * On Coumadin for proximal A. fib and is noted to have significant hematomas over the lateral left knee and left calf * Hematomas noted to the right calf and contusion of the right hip * Was able to walk initially after the injury * Denies any rib pain, shoulder pain, head or neck pain. He does have chronic low back pain but states that that is stable. * Bystanders did apply ice packs and those are present on ED arrival. * 12-lead EKG is obtained showing a sinus rhythm at 60 bpm with left axis deviation. Consider left atrial hypertrophy. There are near Q waves in V1 and V2 and Q waves noted in inferior leads. Tall R waves are noted in lead I. There is abnormal R wave progression with delayed transition and T wave inversion in leads V1 through V4 with flattening in V5 and V6. * Labs are obtained: * WBC of 9.01. * Hemoglobin 14.0. Hematocrit 41.3. * Platelet 153,000. * Neutrophils are 71.6%. * INR 2.98. * Sodium 141. * Potassium 3.6. * Chloride 108. * Carbon dioxide 24. * Anion gap 12.6. * BUN is 18. Creatinine 1.0. GFR greater than 60. * Glucose 165. * Calcium 8.4. * Total bilirubin 1.0. * AST is 22, ALT 34, alkaline phosphatase 62. * Protein is 6.7. * Albumin 3.9. * SARS-CoV-2 RNA is negative. * Left tibia-fibula x-ray was obtained showing soft tissue swelling and no acute bony abnormality. * Right femur x-rays obtained showing findings as noted above but no acute abnormality. * Formal read of the right tibia and fibula are pending however ED provider notes hairline nondisplaced fracture of the proximal right fibula with slight bowing of the fibula. * Noted to be unable to bear weight in the ED. * Given Dilaudid, lorazepam, Zofran, and metoclopramide in the ED for pain and nausea. He started on D5 NS. * Admitted to the medical floor for further management of his pain from hematoma and fracture. 01/24/2021 -still having lower extremity pain -check CK -monitor for compartment syndrome -check CT of lower extremities -hold aspirin -hold warfarin -serial hgb 01/25/2021 -CT lower extremity showing no acute finding of Tibia and Fibula -will obtain US right lower extremity -continue to trend CK -start ceftriaxone for possible secondary early cellulitis of right lower extremity -hemoglobin trending; down transfuse to keep hgb>8 -serial hgb and CK -compartment syndrome low on differential will continue to monitory -hold aspirin and warfarin -INR now under 2.0 01/26/2021 71-year-old male admitted due to trauma resulting in lower extremity hematomas and pain. Lower extremity ultrasound was obtained at 01/25 and shows edema and hematoma but nothing acute. CT of the bilateral lower extremities was obtained showing incidental findings and nothing acute. Labs overnight show a hemoglobin trend of 8.6-->8 0.8-->8.6. WBC is 9.74. Platelet 133,000. INR is 1.18. Sodium is 139. Potassium 3.8. Chloride 103. Carbon oxide 28. Anion gap is 11.8. BUN is 16. Creatinine 0.9. GFR greater than 60. Glucose is 96. Calcium 7.9. Magnesium 2.0. Total bilirubin 1.2. AST is 25, ALT 23, alkaline phosphatase is 42. CK overnight was 482. Total protein is 5.9. Albumin 3.0. Patient does have significant blistering bilaterally, however much worse on the right side. PT wound care is ordered and will moreno these. We will obtain a culture from the fluid. We will continue 1 g Rocephin which was started due to concerns over developing cellulitis the right lower extremity. We will give 20 mg IV push Lasix due to worsening pedal edema. Otherwise we will continue curren t treatment plan with PT and OT. Likely discharge in 1-2 more days pending improvement. 01/27/2021 This is a 71-year-old male admitted after trauma caused by a cow pushing him into a cattle fence panel. Overall he reports continued leg pain but states he is feeling pretty good. He did have significant blistering of his right lateral extremity. These were drained yesterday and fluid was sent for culture. Thus far no organisms seen on Gram stain but we are waiting culture. He is receiving Rocephin. PT wound care has been involved. Labs today show a WBC of 9.78. Hemoglobin is steady at 8.5. Platelet 164,000. Neutrophils are within normal limits at 62.2%. Sodium is 139. Potassium 3.8. Chloride 96. Carbon oxide 29. Anion gap is 17.8. BUN is 19. Creatinine 0.8. GFR greater than 60. Calcium is 8.2. Magnesium 2.1. Total bilirubin 1.4. AST is 29, ALT 27, alkaline phosphatase 48. CK is 332. Protein is 6.3. Albumin 3.1. We will give gentle IV hydration today due to his continued elevated CK. Will resume home warfarin with pharmacy to dose and start DVT prophylaxis lovenox for now. Discharge in 1 to 2 days pending continued stability. 01/28/2021 71-year-old male admitted after trauma caused by a cow pushing him into a metal fence. Patient noted to have bilateral hematomas to lateral aspects of lower extremities and eventual blistering, which was debrided by PT wound care. Patient was started on Rocephin due to concerns over leg infection however her Gram stain and cultures returned negative and this will be stopped today. Patient is on warfarin for chronic paroxysmal atrial fibrillation and this was restarted yesterday with pharmacy to dose. We will resume aspirin today and recheck INR in the morning. He is on DVT dosing of Lovenox as well. Hemoglobin has remained stable and has been 8.5 for the last 2 days. Otherwise WBC is 8.86. Platelet 179,000. Neutrophils are 63.7. INR today was 0.96. Sodium 139. Potassium 3.8. Chloride 105. Carbon dioxide 26. Anion gap 11.8. BUN is 20. Creatinine 0.8. GFR greater than 60. Glucose 107. Total bilirubin 1.5. AST is 32, ALT 34, alkaline phosphatase 64. CK is 253. Protein is 6.4. Albumin 3.1. Patient reports he walked around the hallway yesterday. Pain has been controlled. Likely discharge tomorrow pending results of INR. - Plan Plan:: Fracture of proximal end of right fibula Contusion of left lower extremity Contusion of right hip, initial encounter Contusion of right lower leg, initial encounter Lower extremity cellulitis, suspected Elevated CK * Daily labs * Weightbearing as tolerated lower extremities * Monitor bilateral lower extremity pulses at least BID * Contacted Dr. Gaitan, on-call orthopedics within [facility] in [place]. * Recommended compression stockings bilaterally * WBAT * Monitor for compartment syndrome * Follow-up with orthopedics within 10-14 days of discharge * PT/OT * CM/SW consult * Pain medications as ordered * O2 as needed to keep saturations >90% * BID colace for constipation/narcotic use * Given 1 unit PRBC on 01/25/2021 * Discontinue Rocephin as wound culture/gram stain both negative * PT wound care Paroxysmal atrial fibrillation Chronic anticoagulation History of AR (myocardial infarction) History of heart artery stent * Resume home ASA and warfarin with pharmacy to dose * Telemetry Arthritis Chronic back pain Osteoarthritis * Pain medications as ordered * PT/OT * No acute concerns HLD (hyperlipidemia) * No acute concerns * Hold home statin for now HTN (hypertension) * No acute concerns * Monitor vital signs * Home BP meds as ordered COPD (chronic obstructive pulmonary disease) * No acute concerns * Home albuterol MDI PRN * Duonebs if needed * Continue to monitor Code status: Full code PCP: Dr. Madelin Rincon at [facility] in [place]. DVT prophylaxis: Home warfarin resumed. SCDs and GUERRERO hose contraindicated due to lower extremity wounds. We will start DVT prophylactic Lovenox. Disposition: Patient admitted to medical floor for further pain control and PT OT due to femur fracture and significant hematomas. Upgraded to telemetry given cardiac history. Likely discharge tomorrow pending results of INR. Length of stay greater than 96 hours due to concerns over infection and leg wounds, resumption of home warfarin. <Anton Johnson Jr - Last Filed: 01/28/21 10:22> - Patient Data Vitals - Most Recent: Last Vital Signs Temp 99.7 F 01/28/21 09:52 Pulse 87 01/28/21 08:45 Resp 18 01/28/21 08:39 BP 138/57 L 01/28/21 08:45 Pulse Ox 96 01/28/21 08:39 I&O - Last 24 Hours: Intake & Output 01/27/21 01/28/21 01/28/21 22:59 06:59 14:59 Intake Total 1440 Output Total 1000 1100 Balance 440 -1100 Lab Results Last 24 Hours: Laboratory Results - last 24 hr 01/28/21 01/28/21 01/28/21 Range/Units 04:55 04:55 04:55 WBC 8.86 (4.23-9.07) K/mm3 RBC 2.81 L (4.63-6.08) M/mm3 Hgb 8.5 L (13.7-17.5) gm/dl Hct 26.5 L (40.1-51.0) % MCV 94.3 H (79.0-92.2) fl MCH 30.2 (25.7-32.2) pg MCHC 32.1 L (32.2-35.5) g/dl RDW Std Deviation 46.7 H (35.1-43.9) fL Plt Count 179 (163-337) K/mm3 MPV 10.2 (9.4-12.3) fl Neut % (Auto) 63.7 (34.0-67.9) % Lymph % (Auto) 22.2 (21.8-53.1) % [place] % (Auto) 10.8 (5.3-12.2) % Eos % (Auto) 2.1 (0.8-7.0) Baso % (Auto) 0.3 (0.1-1.2) % Neut # (Auto) 5.63 H (1.78-5.38) K/mm3 Lymph # (Auto) 1.97 (1.32-3.57) K/mm3 [place] # (Auto) 0.96 H (0.30-0.82) K/mm3 Eos # (Auto) 0.19 (0.04-0.54) K/mm3 Baso # (Auto) 0.03 (0.01-0.08) K/mm3 PT 10.3 (9.7-12.0) SECONDS INR 0.96 Sodium 139 (136-145) mEq/L Potassium 3.8 (3.5-5.1) mEq/L Chloride 105 (98-107) mEq/L Carbon Dioxide 26 (21-32) mEq/L Anion Gap 11.8 (5-15) BUN 20 H (7-18) mg/dL Creatinine 0.8 (0.7-1.3) mg/dL Est Cr Clr Drug Dosing 82.24 mL/min Estimated GFR (MDRD) > 60 (>60) mL/min BUN/Creatinine Ratio 25.0 H (14-18) Glucose 104 H (70-99) mg/dL Calcium 8.7 (8.5-10.1) mg/dL Total Bilirubin 1.5 H (0.2-1.0) mg/dL AST 32 (15-37) U/L ALT 34 (16-63) U/L Alkaline Phosphatase 64 (46-116) U/L Creatine Kinase 253 (39-308) U/L Total Protein 6.4 (6.4-8.2) g/dl Albumin 3.1 L (3.4-5.0) g/dl Globulin 3.3 gm/dL Albumin/Globulin Ratio 0.9 L (1-2) Francesco Results Last 24 Hours: Microbiology 01/26/21 12:44 Aerobic Culture - Preliminary Leg, Right Gram Stain - Final Med Orders - Current: Current Medications Acetaminophen (Acetaminophen 325 Mg Tab) 650 mg PO TID BUBBA Last Admin: 01/28/21 08:45 Dose: 650 mg Documented by: Albuterol (Albuterol 6.7 Gm Inhaler) 0 gm INH Q4H PRN PRN Reason: Shortness of Breath Albuterol/Ipratropium (Albuterol/Ipratropium 3.0-0.5 Mg/3 Ml Neb Soln) 3 ml NEB QIDRT PRN PRN Reason: Shortness Of Breath/wheezing Amlodipine Besylate (Amlodipine 2.5 Mg Tab) 2.5 mg PO DAILY [facility] [place] Last Admin: 01/28/21 08:44 Dose: 2.5 mg Documented by: Aspirin (Aspirin 81 Mg Tab.Chew) 81 mg PO DAILY [facility] [place] Cyclobenzaprine HCl (Cyclobenzaprine 10 Mg Tab) 10 mg PO TID [facility] [place] Last Admin: 01/28/21 08:46 Dose: 10 mg Documented by: Docusate Sodium (Docusate Sodium 100 Mg Cap) 100 mg PO Q12H [facility] [place] Last Admin: 01/28/21 08:45 Dose: 100 mg Documented by: Enoxaparin Sodium (Enoxaparin 40 Mg/0.4 Ml Syringe) 40 mg SUBCUT DAILY [facility] [place] Last Admin: 01/28/21 08:45 Dose: 40 mg Documented by: Gabapentin (Gabapentin 300 Mg Cap) 300 mg PO BEDTIME [facility] [place] Last Admin: 01/27/21 20:41 Dose: 300 mg Documented by: Hydromorphone HCl (Hydromorphone 1 Mg/Ml Syringe) 1 mg IVPUSH Q1H PRN PRN Reason: Pain (severe 7-10) Last Admin: 01/26/21 20:36 Dose: 1 mg Documented by: Isosorbide Mononitrate (Isosorbide Mononitrate 60 Mg Tab.Er) 60 mg PO DAILY [facility] [place] Last Admin: 01/28/21 08:45 Dose: 60 mg Documented by: Metoprolol Succinate (Metoprolol Succinate 25 Mg Tab.Er) 50 mg PO DAILY [facility] [place] Last Admin: 01/28/21 08:45 Dose: 50 mg Documented by: Ondansetron HCl (Ondansetron 4 Mg/2 Ml Sdv) 4 mg IVPUSH Q6H PRN PRN Reason: Nausea Oxycodone HCl (Oxycodone 5 Mg Tab) 5 - 10 mg PO Q4H PRN PRN Reason: Pain Last Admin: 01/28/21 07:13 Dose: 10 mg Documented by: Polyethylene Glycol (Polyethylene Glycol 3350 Powder 17 Gm Packet) 17 gm PO ASDIRECTED PRN PRN Reason: Constipation Last Admin: 01/25/21 08:18 Dose: 17 gm Documented by: Warfarin Sodium (Pharmacy To Dose - Warfarin) 1 dose .XX ASDIRECTED [facility] [place] Discontinued Medications Acetaminophen (Acetaminophen 325 Mg Tab) 650 mg PO Q4H PRN PRN Reason: Pain (Mild 1-3)/fever Last Admin: 01/23/21 21:51 Dose: 650 mg Documented by: Cyclobenzaprine HCl (Cyclobenzaprine 10 Mg Tab) 5 mg PO TID PRN PRN Reason: Muscle Spasm - Painful Last Admin: 01/24/21 14:16 Dose: 5 mg Documented by: Docusate Sodium (Docusate Sodium 100 Mg Cap) 100 mg PO Q12H PRN PRN Reason: Constipation Furosemide (Furosemide 20 Mg/2 Ml Vial) 20 mg IVPUSH ONETIME ONE Stop: 01/26/21 10:17 Last Admin: 01/26/21 11:20 Dose: 20 mg Documented by: Hydromorphone HCl (Hydromorphone 0.5 Mg/0.5 Ml Syringe) 0.5 mg IVPUSH ONETIME ONE Stop: 01/22/21 18:46 Last Admin: 01/22/21 19:00 Dose: 0.5 mg Documented by: Hydromorphone HCl (Hydromorphone 0.5 Mg/0.5 Ml Syringe) 0.5 mg IVPUSH ONETIME ONE Stop: 01/22/21 19:51 Last Admin: 01/22/21 20:04 Dose: 0.5 mg Documented by: Hydromorphone HCl (Hydromorphone 0.5 Mg/0.5 Ml Syringe) 0.5 mg IVPUSH Q2H PRN PRN Reason: Pain Last Admin: 01/24/21 14:16 Dose: 0.5 mg Documented by: Dextrose/Sodium Chloride (Dextrose 5%-Normal Saline) 1,000 mls @ 150 mls/hr IV ASDIRECTED [facility] [place] Lactated Ringer's (Ringers, Lactated) 500 mls @ 250 mls/hr IV ONETIME ONE Stop: 01/25/21 09:44 Last Admin: 01/25/21 07:52 Dose: 250 mls/hr Documented by: Ceftriaxone Sodium 1 gm/ (Sodium Chloride) 100 mls @ 200 mls/hr IV Q24H BUBBA Last Admin: 01/27/21 13:42 Dose: 200 mls/hr Documented by: Sodium Chloride (Normal Saline) 250 mls @ 100 mls/hr IV ASDIRECTED [facility] [place] Last Admin: 01/25/21 18:33 Dose: 100 mls/hr Documented by: Sodium Chloride (Normal Saline) 1,000 mls @ 75 mls/hr IV ASDIRECTED [facility] [place] Stop: 01/28/21 21:19 Last Admin: 01/28/21 02:08 Dose: 75 mls/hr Documented by: Lidocaine HCl (Xylocaine-Mpf 1%) Confirm Administered Dose 2 mls @ as directed .ROUTE .STK-MED ONE Stop: 01/27/21 14:48 Lorazepam (Lorazepam 2 Mg/Ml Sdv) 1 mg IVPUSH ONETIME ONE Stop: 01/22/21 16:52 Last Admin: 01/22/21 17:50 Dose: Not Given Documented by: Metoclopramide HCl (Metoclopramide 10 Mg/2 Ml Sdv) 10 mg IVPUSH ONETIME ONE Stop: 01/22/21 16:51 Last Admin: 01/22/21 17:51 Dose: Not Given Documented by: Ondansetron HCl (Ondansetron 4 Mg/2 Ml Sdv) 4 mg IVPUSH ONETIME ONE Stop: 01/22/21 18:46 Last Admin: 01/22/21 19:00 Dose: 4 mg Documented by: Oxycodone/Acetaminophen (Acetaminophen/Oxycodone 325-5 Mg Tab) 1 tab PO Q4H PRN PRN Reason: Pain (moderate 4-6) Last Admin: 01/24/21 12:00 Dose: 1 tab Documented by: Warfarin Sodium (Warfarin 5 Mg Tab) 5 mg PO ONETIME ONE Stop: 01/27/21 18:01 Last Admin: 01/27/21 18:26 Dose: 5 mg Documented by: - Patient Data Lab Results Last 24 hrs: Laboratory Results - last 24 hr 01/28/21 01/28/21 01/28/21 Range/Units 04:55 04:55 04:55 WBC 8.86 (4.23-9.07) K/mm3 RBC 2.81 L (4.63-6.08) M/mm3 Hgb 8.5 L (13.7-17.5) gm/dl Hct 26.5 L (40.1-51.0) % MCV 94.3 H (79.0-92.2) fl MCH 30.2 (25.7-32.2) pg MCHC 32.1 L (32.2-35.5) g/dl RDW Std Deviation 46.7 H (35.1-43.9) fL Plt Count 179 (163-337) K/mm3 MPV 10.2 (9.4-12.3) fl Neut % (Auto) 63.7 (34.0-67.9) % Lymph % (Auto) 22.2 (21.8-53.1) % [place] % (Auto) 10.8 (5.3-12.2) % Eos % (Auto) 2.1 (0.8-7.0) Baso % (Auto) 0.3 (0.1-1.2) % Neut # (Auto) 5.63 H (1.78-5.38) K/mm3 Lymph # (Auto) 1.97 (1.32-3.57) K/mm3 [place] # (Auto) 0.96 H (0.30-0.82) K/mm3 Eos # (Auto) 0.19 (0.04-0.54) K/mm3 Baso # (Auto) 0.03 (0.01-0.08) K/mm3 PT 10.3 (9.7-12.0) SECONDS INR 0.96 Sodium 139 (136-145) mEq/L Potassium 3.8 (3.5-5.1) mEq/L Chloride 105 (98-107) mEq/L Carbon Dioxide 26 (21-32) mEq/L Anion Gap 11.8 (5-15) BUN 20 H (7-18) mg/dL Creatinine 0.8 (0.7-1.3) mg/dL Est Cr Clr Drug Dosing 82.24 mL/min Estimated GFR (MDRD) > 60 (>60) mL/min BUN/Creatinine Ratio 25.0 H (14-18) Glucose 104 H (70-99) mg/dL Calcium 8.7 (8.5-10.1) mg/dL Total Bilirubin 1.5 H (0.2-1.0) mg/dL AST 32 (15-37) U/L ALT 34 (16-63) U/L Alkaline Phosphatase 64 (46-116) U/L Creatine Kinase 253 (39-308) U/L Total Protein 6.4 (6.4-8.2) g/dl Albumin 3.1 L (3.4-5.0) g/dl Globulin 3.3 gm/dL Albumin/Globulin Ratio 0.9 L (1-2) Result Diagrams: 01/28/21 04:55 01/28/21 04:55 Francesco Results Last 24 hrs: Microbiology 01/26/21 12:44 Aerobic Culture - Preliminary Leg, Right Gram Stain - Final Sepsis Event Note - Focused Exam Vital Signs: Vital Signs Temp Pulse Resp BP Pulse Ox 01/28/21 09:52 99.7 F 01/28/21 08:45 99.9 F 87 138/57 L 01/28/21 08:44 138/57 L 01/28/21 08:39 99.9 F 87 18 138/57 L 96 01/28/21 02:47 99.1 F 78 20 117/63 93 L - Plan Plan:: Case discussed in full. Agree with evaluation, assessment and plan.
[2021-01-28] MEDS: amLODIPine 2.5 MG Tab PO SCH (08:44)
[2021-01-28] MEDS: Acetaminophen 325 MG Tab PO SCH ×3 (08:45→20:53)
[2021-01-28] MEDS: Enoxaparin 40 MG/0.4 ML Syringe SUBCUT SCH (08:45)
[2021-01-28] MEDS: Docusate Sodium 100 MG Cap PO SCH ×2 (08:45→20:54)
[2021-01-28] MEDS: Metoprolol Succinate 25 MG Tab.ER PO SCH (08:45)
[2021-01-28] MEDS: Isosorbide Mononitrate 60 MG Tab.ER PO SCH (08:45)
[2021-01-28] MEDS: Cyclobenzaprine 10 MG Tab PO SCH ×3 (08:46→20:53)
[2021-01-28] MEDS ORDERED: Warfarin 5 MG Tab PO ONE (18:00)
[2021-01-28] MEDS: cefTRIAXone 1 GM in Sodium Chloride 0.9% 100 ML IV SCH (20:54)
[2021-01-28] MEDS: Gabapentin 300 MG Cap PO SCH (20:54)
[2021-01-28] MEDS: HYDROmorphone 1 MG/ML Syringe IVPUSH PRN (21:52)
[2021-01-29] MEDS: oxyCODONE 5 MG Tab PO PRN ×4 (04:46→20:44)
--- NOTE | 2021-01-29 07:36 | PCM.PN ---
<Spike Sorto - Last Filed: 01/29/21 12:52> - General Info Date of Service: 01/29/21 Admission Dx/Problem (Free Text): Admission Diagnosis/Problem Admission Diagnosis/Problem Hematoma and contusion Functional Status: Reports: Pain Controlled, Tolerating Diet, Ambulating, Urinating. Denies: New Symptoms - Review of Systems General: Reports: Fever, Weakness, Fatigue. Denies: Malaise, Chills HEENT: Reports: No Symptoms. Denies: Headaches, Sore Throat, Visual Changes Pulmonary: Reports: No Symptoms. Denies: Shortness of Breath, Cough, Sputum, Wheezing Cardiovascular: Reports: Edema. Denies: Chest Pain, Palpitations, Dyspnea on Exertion Gastrointestinal: Reports: Constipation. Denies: Abdominal Pain, Diarrhea, Nausea, Vomiting Genitourinary: Reports: No Symptoms. Denies: Pain Musculoskeletal: Reports: Leg Pain. Denies: Neck Pain Skin: Reports: No Symptoms Neurological: Reports: No Symptoms, Difficulty Walking, Weakness, Gait Disturbance. Denies: Confusion, Headache, Numbness, Pre-Existing Deficit, Seizure, Syncope, Tingling, Tremors, Trouble Speaking, Change in Speech Psychiatric: Reports: No Symptoms - Patient Data Vitals - Most Recent: Last Vital Signs Temp 98.2 F 01/29/21 04:40 Pulse 72 01/29/21 04:40 Resp 16 01/29/21 04:40 BP 125/73 01/29/21 04:40 Pulse Ox 96 01/29/21 04:40 Weight - Most Recent: 263 lb 3.2 oz I&O - Last 24 Hours: Intake & Output 01/28/21 01/29/21 01/29/21 22:59 06:59 14:59 Intake Total 1300 Output Total 1475 750 Balance -175 -750 Lab Results Last 24 Hours: Laboratory Results - last 24 hr 01/29/21 01/29/21 01/29/21 Range/Units 05:10 05:10 05:10 WBC 9.66 H (4.23-9.07) K/mm3 RBC 3.06 L (4.63-6.08) M/mm3 Hgb 9.1 L (13.7-17.5) gm/dl Hct 29.4 L (40.1-51.0) % MCV 96.1 H (79.0-92.2) fl MCH 29.7 (25.7-32.2) pg MCHC 31.0 L (32.2-35.5) g/dl RDW Std Deviation 47.8 H (35.1-43.9) fL Plt Count 210 (163-337) K/mm3 MPV 10.1 (9.4-12.3) fl Neut % (Auto) 64.7 (34.0-67.9) % Lymph % (Auto) 19.0 L (21.8-53.1) % Sumner % (Auto) 12.4 H (5.3-12.2) % Eos % (Auto) 2.2 (0.8-7.0) Baso % (Auto) 0.3 (0.1-1.2) % Neut # (Auto) 6.24 H (1.78-5.38) K/mm3 Lymph # (Auto) 1.84 (1.32-3.57) K/mm3 [place] # (Auto) 1.20 H (0.30-0.82) K/mm3 Eos # (Auto) 0.21 (0.04-0.54) K/mm3 Baso # (Auto) 0.03 (0.01-0.08) K/mm3 Manual Slide Review Normal smear PT 10.7 (9.7-12.0) SECONDS INR 1.00 Sodium 140 (136-145) mEq/L Potassium 3.9 (3.5-5.1) mEq/L Chloride 104 (98-107) mEq/L Carbon Dioxide 26 (21-32) mEq/L Anion Gap 13.9 (5-15) BUN 20 H (7-18) mg/dL Creatinine 0.9 (0.7-1.3) mg/dL Est Cr Clr Drug Dosing 73.10 mL/min Estimated GFR (MDRD) > 60 (>60) mL/min BUN/Creatinine Ratio 22.2 H (14-18) Glucose 95 (70-99) mg/dL Calcium 8.8 (8.5-10.1) mg/dL Total Bilirubin 2.1 H (0.2-1.0) mg/dL AST 39 H (15-37) U/L ALT 46 (16-63) U/L Alkaline Phosphatase 73 (46-116) U/L Creatine Kinase 167 (39-308) U/L Total Protein 7.1 (6.4-8.2) g/dl Albumin 3.3 L (3.4-5.0) g/dl Globulin 3.8 gm/dL Albumin/Globulin Ratio 0.9 L (1-2) Francesco Results Last 24 Hours: Microbiology 01/26/21 12:44 Aerobic Culture - Preliminary Leg, Right Gram Stain - Final Anaerobic Culture - Preliminary Med Orders - Current: Current Medications Acetaminophen (Acetaminophen 325 Mg Tab) 650 mg PO TID [facility] Last Admin: 01/28/21 20:53 Dose: 650 mg Documented by: Albuterol (Albuterol 6.7 Gm Inhaler) 0 gm INH Q4H PRN PRN Reason: Shortness of Breath Albuterol/Ipratropium (Albuterol/Ipratropium 3.0-0.5 Mg/3 Ml Neb Soln) 3 ml NEB QIDRT PRN PRN Reason: Shortness Of Breath/wheezing Amlodipine Besylate (Amlodipine 2.5 Mg Tab) 2.5 mg PO DAILY [facility] Last Admin: 01/28/21 08:44 Dose: 2.5 mg Documented by: Aspirin (Aspirin 81 Mg Tab.Chew) 81 mg PO DAILY [facility] Cyclobenzaprine HCl (Cyclobenzaprine 10 Mg Tab) 10 mg PO TID [facility] Last Admin: 01/28/21 20:53 Dose: 10 mg Documented by: Docusate Sodium (Docusate Sodium 100 Mg Cap) 100 mg PO Q12H [facility] Last Admin: 01/28/21 20:54 Dose: 100 mg Documented by: Enoxaparin Sodium (Enoxaparin 40 Mg/0.4 Ml Syringe) 40 mg SUBCUT DAILY [facility] Last Admin: 01/28/21 08:45 Dose: 40 mg Documented by: Gabapentin (Gabapentin 300 Mg Cap) 300 mg PO BEDTIME [facility] Last Admin: 01/28/21 20:54 Dose: 300 mg Documented by: Hydromorphone HCl (Hydromorphone 1 Mg/Ml Syringe) 1 mg IVPUSH Q1H PRN PRN Reason: Pain (severe 7-10) Last Admin: 01/28/21 21:52 Dose: 1 mg Documented by: Ceftriaxone Sodium 1 gm/ (Sodium Chloride) 100 mls @ 200 mls/hr IV Q24H [facility] Last Admin: 01/28/21 20:54 Dose: 200 mls/hr Documented by: Isosorbide Mononitrate (Isosorbide Mononitrate 60 Mg Tab.Er) 60 mg PO DAILY [facility] Last Admin: 01/28/21 08:45 Dose: 60 mg Documented by: Metoprolol Succinate (Metoprolol Succinate 25 Mg Tab.Er) 50 mg PO DAILY [facility] Last Admin: 01/28/21 08:45 Dose: 50 mg Documented by: Ondansetron HCl (Ondansetron 4 Mg/2 Ml Sdv) 4 mg IVPUSH Q6H PRN PRN Reason: Nausea Oxycodone HCl (Oxycodone 5 Mg Tab) 5 - 10 mg PO Q4H PRN PRN Reason: Pain Last Admin: 01/29/21 04:46 Dose: 10 mg Documented by: Polyethylene Glycol (Polyethylene Glycol 3350 Powder 17 Gm Packet) 17 gm PO ASDIRECTED PRN PRN Reason: Constipation Last Admin: 01/25/21 08:18 Dose: 17 gm Documented by: Warfarin Sodium (Pharmacy To Dose - Warfarin) 1 dose .XX ASDIRECTED [facility] Discontinued Medications Acetaminophen (Acetaminophen 325 Mg Tab) 650 mg PO Q4H PRN PRN Reason: Pain (Mild 1-3)/fever Last Admin: 01/23/21 21:51 Dose: 650 mg Documented by: Cyclobenzaprine HCl (Cyclobenzaprine 10 Mg Tab) 5 mg PO TID PRN PRN Reason: Muscle Spasm - Painful Last Admin: 01/24/21 14:16 Dose: 5 mg Documented by: Docusate Sodium (Docusate Sodium 100 Mg Cap) 100 mg PO Q12H PRN PRN Reason: Constipation Furosemide (Furosemide 20 Mg/2 Ml Vial) 20 mg IVPUSH ONETIME ONE Stop: 01/26/21 10:17 Last Admin: 01/26/21 11:20 Dose: 20 mg Documented by: Hydromorphone HCl (Hydromorphone 0.5 Mg/0.5 Ml Syringe) 0.5 mg IVPUSH ONETIME ONE Stop: 01/22/21 18:46 Last Admin: 01/22/21 19:00 Dose: 0.5 mg Documented by: Hydromorphone HCl (Hydromorphone 0.5 Mg/0.5 Ml Syringe) 0.5 mg IVPUSH ONETIME ONE Stop: 01/22/21 19:51 Last Admin: 01/22/21 20:04 Dose: 0.5 mg Documented by: Hydromorphone HCl (Hydromorphone 0.5 Mg/0.5 Ml Syringe) 0.5 mg IVPUSH Q2H PRN PRN Reason: Pain Last Admin: 01/24/21 14:16 Dose: 0.5 mg Documented by: Dextrose/Sodium Chloride (Dextrose 5%-Normal Saline) 1,000 mls @ 150 mls/hr IV ASDIRECTED [facility] Lactated Ringer's (Ringers, Lactated) 500 mls @ 250 mls/hr IV ONETIME ONE Stop: 01/25/21 09:44 Last Admin: 01/25/21 07:52 Dose: 250 mls/hr Documented by: Ceftriaxone Sodium 1 gm/ (Sodium Chloride) 100 mls @ 200 mls/hr IV Q24H [facility] Last Admin: 01/27/21 13:42 Dose: 200 mls/hr Documented by: Sodium Chloride (Normal Saline) 250 mls @ 100 mls/hr IV ASDIRECTED [facility] Last Admin: 01/25/21 18:33 Dose: 100 mls/hr Documented by: Sodium Chloride (Normal Saline) 1,000 mls @ 75 mls/hr IV ASDIRECTED [facility] Stop: 01/28/21 21:19 Last Admin: 01/28/21 02:08 Dose: 75 mls/hr Documented by: Lidocaine HCl (Xylocaine-Mpf 1%) Confirm Administered Dose 2 mls @ as directed .ROUTE .STK-MED ONE Stop: 01/27/21 14:48 Lorazepam (Lorazepam 2 Mg/Ml Sdv) 1 mg IVPUSH ONETIME ONE Stop: 01/22/21 16:52 Last Admin: 01/22/21 17:50 Dose: Not Given Documented by: Metoclopramide HCl (Metoclopramide 10 Mg/2 Ml Sdv) 10 mg IVPUSH ONETIME ONE Stop: 01/22/21 16:51 Last Admin: 01/22/21 17:51 Dose: Not Given Documented by: Ondansetron HCl (Ondansetron 4 Mg/2 Ml Sdv) 4 mg IVPUSH ONETIME ONE Stop: 01/22/21 18:46 Last Admin: 01/22/21 19:00 Dose: 4 mg Documented by: Oxycodone/Acetaminophen (Acetaminophen/Oxycodone 325-5 Mg Tab) 1 tab PO Q4H PRN PRN Reason: Pain (moderate 4-6) Last Admin: 01/24/21 12:00 Dose: 1 tab Documented by: Warfarin Sodium (Warfarin 5 Mg Tab) 5 mg PO ONETIME ONE Stop: 01/27/21 18:01 Last Admin: 01/27/21 18:26 Dose: 5 mg Documented by: Warfarin Sodium (Warfarin 5 Mg Tab) 5 mg PO ONETIME ONE Stop: 01/28/21 18:01 Last Admin: 01/28/21 17:53 Dose: 5 mg Documented by: - Exam Quality Assessment: DVT Prophylaxis. No: Supplemental Oxygen, Urine Catheter General: Alert, Oriented, Cooperative, No Acute Distress HEENT: Pupils Equal, Pupils Reactive, Mucous Membr. Moist/[place] Neck: Supple, Trachea Midline Lungs: Clear to Auscultation, Normal Respiratory Effort Cardiovascular: Regular Rate, Irregular Rhythm GI/Abdominal Exam: Normal Bowel Sounds, Soft, Non-Tender, No Distention (Male) Exam: Deferred Back Exam: Normal Inspection, Full Range of Motion Extremities: Pedal Edema (Bilateral but improving), Leg Pain (Bilateral but improving), Other (Bilateral wounds on lateral aspects of both legs with some small blisters noted. No obvious signs of infection. No redness, purulent drainage, or erythema. Significant bruising bilaterally to lower extremities which is healing and becoming more yellow in color. ). No: Limited Range of Motion, Increased Warmth, Redness Peripheral Pulses: 2+: Radial (L), Radial (R), Dorsalis Pedis (L), Dorsalis Pedis (R) Skin: Warm, Dry, Intact Wound/Incisions: Healing Well, Drainage. No: Erythema Neurological: No New Focal Deficit Psy/Mental Status: Alert, Normal Affect, Normal Mood - Patient Data Lab Results Last 24 hrs: Laboratory Results - last 24 hr 01/29/21 01/29/21 01/29/21 Range/Units 05:10 05:10 05:10 WBC 9.66 H (4.23-9.07) K/mm3 RBC 3.06 L (4.63-6.08) M/mm3 Hgb 9.1 L (13.7-17.5) gm/dl Hct 29.4 L (40.1-51.0) % MCV 96.1 H (79.0-92.2) fl MCH 29.7 (25.7-32.2) pg MCHC 31.0 L (32.2-35.5) g/dl RDW Std Deviation 47.8 H (35.1-43.9) fL Plt Count 210 (163-337) K/mm3 MPV 10.1 (9.4-12.3) fl Neut % (Auto) 64.7 (34.0-67.9) % Lymph % (Auto) 19.0 L (21.8-53.1) % Sumner % (Auto) 12.4 H (5.3-12.2) % Eos % (Auto) 2.2 (0.8-7.0) Baso % (Auto) 0.3 (0.1-1.2) % Neut # (Auto) 6.24 H (1.78-5.38) K/mm3 Lymph # (Auto) 1.84 (1.32-3.57) K/mm3 [place]ner # (Auto) 1.20 H (0.30-0.82) K/mm3 Eos # (Auto) 0.21 (0.04-0.54) K/mm3 Baso # (Auto) 0.03 (0.01-0.08) K/mm3 Manual Slide Review Normal smear PT 10.7 (9.7-12.0) SECONDS INR 1.00 Sodium 140 (136-145) mEq/L Potassium 3.9 (3.5-5.1) mEq/L Chloride 104 (98-107) mEq/L Carbon Dioxide 26 (21-32) mEq/L Anion Gap 13.9 (5-15) BUN 20 H (7-18) mg/dL Creatinine 0.9 (0.7-1.3) mg/dL Est Cr Clr Drug Dosing 73.10 mL/min Estimated GFR (MDRD) > 60 (>60) mL/min BUN/Creatinine Ratio 22.2 H (14-18) Glucose 95 (70-99) mg/dL Calcium 8.8 (8.5-10.1) mg/dL Total Bilirubin 2.1 H (0.2-1.0) mg/dL AST 39 H (15-37) U/L ALT 46 (16-63) U/L Alkaline Phosphatase 73 (46-116) U/L Creatine Kinase 167 (39-308) U/L Total Protein 7.1 (6.4-8.2) g/dl Albumin 3.3 L (3.4-5.0) g/dl Globulin 3.8 gm/dL Albumin/Globulin Ratio 0.9 L (1-2) Result Diagrams: 01/29/21 05:10 01/29/21 05:10 Francesco Results Last 24 hrs: Microbiology 01/26/21 12:44 Aerobic Culture - Preliminary Leg, Right Gram Stain - Final Anaerobic Culture - Preliminary Sepsis Event Note - Evaluation Sepsis Screening Result: No Definite Risk - Focused Exam Vital Signs: Vital Signs Temp Temp Pulse Resp BP Pulse Ox 01/29/21 04:40 98.2 F 72 16 125/73 96 01/28/21 23:42 99.2 F 01/28/21 20:54 101.7 F H 84 18 129/59 L 94 L - Problem List & Annotations (1) Chronic anticoagulation SNOMED Code(s): 800484635 Code(s): Z79.01 - [employer] (CURRENT) USE OF ANTICOAGULANTS Status: Chronic Priority: High Current Visit: Yes (2) HLD (hyperlipidemia) SNOMED Code(s): 80749993 Code(s): E78.5 - HYPERLIPIDEMIA, UNSPECIFIED Status: Chronic Priority: Low Current Visit: No Qualifiers: Hyperlipidemia type: unspecified Qualified Code(s): E78.5 - Hyperlipidemia, unspecified (3) HTN (hypertension) SNOMED Code(s): 66123830 Code(s): I10 - ESSENTIAL (PRIMARY) HYPERTENSION Status: Chronic Priority: Medium Current Visit: No Qualifiers: Hypertension type: unspecified Qualified Code(s): I10 - Essential (primary) hypertension (4) History of OK (myocardial infarction) SNOMED Code(s): 581717245 Code(s): I25.2 - OLD MYOCARDIAL INFARCTION Status: Chronic Priority: Low Current Visit: No (5) History of heart artery stent SNOMED Code(s): 590854415, 255201359 Code(s): Z95.5 - PRESENCE OF CORONARY ANGIOPLASTY IMPLANT AND GRAFT Status: Chronic Priority: Low Current Visit: No (6) COPD (chronic obstructive pulmonary disease) SNOMED Code(s): 09287400 Code(s): J44.9 - CHRONIC OBSTRUCTIVE PULMONARY DISEASE, UNSPECIFIED Status: Chronic Priority: Medium Current Visit: No Qualifiers: COPD type: unspecified COPD Qualified Code(s): J44.9 - Chronic obstructive pulmonary disease, unspecified (7) Arthritis SNOMED Code(s): 3767650 Code(s): M19.90 - UNSPECIFIED OSTEOARTHRITIS, UNSPECIFIED SITE Status: Chronic Priority: Low Current Visit: No (8) Chronic back pain SNOMED Code(s): 440009077 Code(s): M54.9 - DORSALGIA, UNSPECIFIED; G89.29 - OTHER CHRONIC PAIN Status: Chronic Priority: Low Current Visit: No Qualifiers: Back pain location: back pain in unspecified location Back pain laterality: unspecified Qualified Code(s): M54.9 - Dorsalgia, unspecified; G89.29 - Other chronic pain (9) Osteoarthritis SNOMED Code(s): 361355994 Code(s): M19.90 - UNSPECIFIED OSTEOARTHRITIS, UNSPECIFIED SITE Status: Chronic Priority: Low Current Visit: No Qualifiers: Osteoarthritis location: multiple joints Osteoarthritis type: primary Qualified Code(s): M89.49 - Other hypertrophic osteoarthropathy, multiple sites (10) Contusion of left lower extremity SNOMED Code(s): 96495430 Code(s): S80.12XA - CONTUSION OF LEFT LOWER LEG, INITIAL ENCOUNTER Status: Acute Priority: High Current Visit: Yes Qualifiers: Encounter type: initial encounter Qualified Code(s): S80.12XA - Contusion of left lower leg, initial encounter (11) Contusion of right hip, initial encounter SNOMED Code(s): 02665720 Code(s): S70.01XA - CONTUSION OF RIGHT HIP, INITIAL ENCOUNTER Status: Acute Priority: High Current Visit: Yes (12) Contusion of right lower leg, initial encounter SNOMED Code(s): 64153249299180655 Code(s): S80.11XA - CONTUSION OF RIGHT LOWER LEG, INITIAL ENCOUNTER Status: Acute Priority: High Current Visit: Yes (13) Fracture of proximal end of right fibula SNOMED Code(s): 22804810 Code(s): S82.831A - OTH FRACTURE OF UPPER AND LOWER END OF RIGHT FIBULA, INIT Status: Acute Priority: High Current Visit: Yes Qualifiers: Encounter type: initial encounter Fracture type: closed Fracture morphology: other fracture Qualified Code(s): S82.831A - Other fracture of upper and lower end of right fibula, initial encounter for closed fracture (14) Paroxysmal atrial fibrillation SNOMED Code(s): 724399236 Code(s): I48.0 - PAROXYSMAL ATRIAL FIBRILLATION Status: Chronic Priority: Medium Current Visit: No (15) Lower extremity cellulitis SNOMED Code(s): 125572400 Code(s): L03.119 - CELLULITIS OF UNSPECIFIED PART OF LIMB Status: Suspected Priority: High Current Visit: Yes Qualifiers: Laterality: right Qualified Code(s): L03.115 - Cellulitis of right lower limb (16) Elevated CK SNOMED Code(s): 750476041 Code(s): R74.8 - ABNORMAL LEVELS OF OTHER SERUM ENZYMES Status: Acute Priority: High Current Visit: Yes - Problem List Review Problem List Initiated/Reviewed/Updated: Yes - My Orders Last 24 Hours: My Active Orders 01/29/21 09:00 Aspirin 81 mg PO DAILY 01/30/21 05:11 CBC WITH AUTO DIFF [HEME] AM CMP [COMPREHENSIVE METABOLIC PN,CMP] [CHEM] AM CREATINE KINASE,CK [CHEM] AM 01/31/21 05:11 CBC WITH AUTO DIFF [HEME] AM - Assessment Assessment:: Assessment - 01/23/2021 (admitted evening of 01/22/2021) * 71-year male who presents to our ED on the evening of 01/22/2021 after workpla ce injury at the [facility] * History of proximal A. fib, chronic anticoagulation on Coumadin, HLD, HTN, OK with 2 stents placed, COPD, arthritis, chronic back pain, osteoarthritis * Struck by a ball and slammed into a steel [place] fence. * Struck on the left side which resulted in right lower extremity and hip pain * On Coumadin for proximal A. fib and is noted to have significant hematomas over the lateral left knee and left calf * Hematomas noted to the right calf and contusion of the right hip * Was able to walk initially after the injury * Denies any rib pain, shoulder pain, head or neck pain. He does have chronic low back pain but states that that is stable. * Bystanders did apply ice packs and those are present on ED arrival. * 12-lead EKG is obtained showing a sinus rhythm at 60 bpm with left axis deviation. Consider left atrial hypertrophy. There are near Q waves in V1 and V2 and Q waves noted in inferior leads. Tall R waves are noted in lead I. There is abnormal R wave progression with delayed transition and T wave inversion in leads V1 through V4 with flattening in V5 and V6. * Labs are obtained: * WBC of 9.01. * Hemoglobin 14.0. Hematocrit 41.3. * Platelet 153,000. * Neutrophils are 71.6%. * INR 2.98. * Sodium 141. * Potassium 3.6. * Chloride 108. * Carbon dioxide 24. * Anion gap 12.6. * BUN is 18. Creatinine 1.0. GFR greater than 60. * Glucose 165. * Calcium 8.4. * Total bilirubin 1.0. * AST is 22, ALT 34, alkaline phosphatase 62. * Protein is 6.7. * Albumin 3.9. * SARS-CoV-2 RNA is negative. * Left tibia-fibula x-ray was obtained showing soft tissue swelling and no acute bony abnormality. * Right femur x-rays obtained showing findings as noted above but no acute abnormality. * Formal read of the right tibia and fibula are pending however ED provider notes hairline nondisplaced fracture of the proximal right fibula with slight bowing of the fibula. * Noted to be unable to bear weight in the ED. * Given Dilaudid, lorazepam, Zofran, and metoclopramide in the ED for pain and nausea. He started on D5 NS. * Admitted to the medical floor for further management of his pain from hematoma and fracture. 01/24/2021 -still having lower extremity pain -check CK -monitor for compartment syndrome -check CT of lower extremities -hold aspirin -hold warfarin -serial hgb 01/25/2021 -CT lower extremity showing no acute finding of Tibia and Fibula -will obtain US right lower extremity -continue to trend CK -start ceftriaxone for possible secondary early cellulitis of right lower extremity -hemoglobin trending; down transfuse to keep hgb>8 -serial hgb and CK -compartment syndrome low on differential will continue to monitory -hold aspirin and warfarin -INR now under 2.0 01/26/2021 71-year-old male admitted due to trauma resulting in lower extremity hematomas and pain. Lower extremity ultrasound was obtained at 01/25 and shows edema and hematoma but nothing acute. CT of the bilateral lower extremities was obtained showing incidental findings and nothing acute. Labs overnight show a hemoglobin trend of 8.6-->8 0.8-->8.6. WBC is 9.74. Platelet 133,000. INR is 1.18. Sodium is 139. Potassium 3.8. Chloride 103. Carbon oxide 28. Anion gap is 11.8. BUN is 16. Creatinine 0.9. GFR greater than 60. Glucose is 96. Calci um 7.9. Magnesium 2.0. Total bilirubin 1.2. AST is 25, ALT 23, alkaline phosphatase is 42. CK overnight was 482. Total protein is 5.9. Albumin 3.0. Patient does have significant blistering bilaterally, however much worse on the right side. PT wound care is ordered and will moreno these. We will obtain a culture from the fluid. We will continue 1 g Rocephin which was started due to concerns over developing cellulitis the right lower extremity. We will give 20 mg IV push Lasix due to worsening pedal edema. Otherwise we will continue current treatment plan with PT and OT. Likely discharge in 1-2 more days pending improvement. 01/27/2021 This is a 71-year-old male admitted after trauma caused by a cow pushing him into a cattle fence panel. Overall he reports continued leg pain but states he is feeling pretty good. He did have significant blistering of his right lateral extremity. These were drained yesterday and fluid was sent for culture. Thus far no organisms seen on Gram stain but we are waiting culture. He is receiving Rocephin. PT wound care has been involved. Labs today show a WBC of 9.78. Hemoglobin is steady at 8.5. Platelet 164,000. Neutrophils are within normal limits at 62.2%. Sodium is 139. Potassium 3.8. Chloride 96. Carbon oxide 29. Anion gap is 17.8. BUN is 19. Creatinine 0.8. GFR greater than 60. Calcium is 8.2. Magnesium 2.1. Total bilirubin 1.4. AST is 29, ALT 27, alkaline phosphatase 48. CK is 332. Protein is 6.3. Albumin 3.1. We will give gentle IV hydration today due to his continued elevated CK. Will resume home warfarin with pharmacy to dose and start DVT prophylaxis lovenox for now. Discharge in 1 to 2 days pending continued stability. 01/28/2021 71-year-old male admitted after trauma caused by a cow pushing him into a metal fence. Patient noted to have bilateral hematomas to lateral aspects of lower extremities and eventual blistering, which was debrided by PT wound care. Patient was started on Rocephin due to concerns over leg infection however her Gram stain and cultures returned negative and this will be stopped today. Patient is on warfarin for chronic paroxysmal atrial fibrillation and this was restarted yesterday with pharmacy to dose. We will resume aspirin today and recheck INR in the morning. He is on DVT dosing of Lovenox as well. Hemoglobin has remained stable and has been 8.5 for the last 2 days. Otherwise WBC is 8.86. Platelet 179,000. Neutrophils are 63.7. INR today was 0.96. Sodium 139. Potassium 3.8. Chloride 105. Carbon dioxide 26. Anion gap 11.8. BUN is 20. Creatinine 0.8. GFR greater than 60. Glucose 107. Total bilirubin 1.5. AST is 32, ALT 34, alkaline phosphatase 64. CK is 253. Protein is 6.4. Albu min 3.1. Patient reports he walked around the hallway yesterday. Pain has been controlled. Likely discharge tomorrow pending results of INR. 01/29/2021 This is a 71-year-old male admitted after being pushed by a cow into a metal fence resulting in bilateral lower extremity trauma. Patient was noted to have a right fibula fracture and Dr. Gaitan, orthopedist leasing professional with [facility] was contacted who recommended weight-bear as tolerating and patient follow-up with orthopedics in 10 to 14 days. Since then patient has had blistering to his lower extremities laterally and PT wound care has been debriding this and dressing it. Cultures were obtained and were negative, including Gram staining. Labs have overall remained stable. He did receive 1 unit of blood and his hemoglobin has been rising. Platelets have also been rising. CK has returned to normal limits and this will be discontinued. Overnight patient was noted to have a fever of 102-101. Blood cultures were obtained. Procalcitonin was sent. WBC has been stable. Patient had been on Ro cephin which was discontinued yesterday after wound cultures were negative. This was restarted. Chest x-ray was obtained and shows nothing acute. Bilateral lower extremity venous ultrasound was obtained to rule out DVT. While not an optimal study is some veins were unable to be seen well there were no signs of any DVT. UA is ordered and is pending. Patient has had no fever since. We will keep the patient overnight awaiting blood cultures, UA, and procalcitonin. There are no obvious signs of infection from the wound including erythema, purulent drainage, or redness. Patient does not look septic and reports that he feels pretty good. Daughter is at bedside and does discussed the possibility of transfer. At this point transfer would be very difficult as the patient has no known cause of fever and it would be difficult to justify a higher level of care being required. Otherwise labs today show WBC of 9.66. Hemoglobin 9.1. Platelet 210,000. There is a normal smear. INR is 1.00. Pharmacy will continue dosing warfarin. We will continue DVT prophylaxis Lovenox as well. Sodium is 140. Potassium 3.9. Chloride 104. Carbon dioxide 26. Anion gap 13.9. BUN is 20. Creatinine 0.9. GFR greater than 60. Glucose is 95. Calcium 8.8. Total bilirubin 2.1. AST is 39, ALT 46, alkaline phosphatase 73. CK is 167 and as mentioned we will discontinue trending this. Protein is 7.1. Albumin is 3.3. Likely discharge tomorrow pending labs, including UA and blood culture results. - Plan Plan:: Fracture of proximal end of right fibula Contusion of left lower extremity Contusion of right hip, initial encounter Contusion of right lower leg, initial encounter Lower extremity cellulitis, suspected Elevated CK * Daily labs * Weightbearing as tolerated lower extremities * Monitor bilateral lower extremity pulses at least BID * Contacted Dr. Gaitan, on-call orthopedics within [facility] in [place]. * Recommended compression stockings bilaterally * WBAT * Monitor for compartment syndrome * Follow-up with orthopedics within 10-14 days of discharge * PT/OT * CM/SW consult * Pain medications as ordered * O2 as needed to keep saturations >90% * BID colace for constipation/narcotic use * Given 1 unit PRBC on 01/25/2021 * Discontinue Rocephin as wound culture/gram stain both negative * PT wound care Paroxysmal atrial fibrillation Chronic anticoagulation History of OK (myocardial infarction) History of heart artery stent * Resume home ASA and warfarin with pharmacy to dose * Telemetry Arthritis Chronic back pain Osteoarthritis * Pain medications as ordered * PT/OT * No acute concerns HLD (hyperlipidemia) * No acute concerns * Hold home statin for now HTN (hypertension) * No acute concerns * Monitor vital signs * Home BP meds as ordered COPD (chronic obstructive pulmonary disease) * No acute concerns * Home albuterol MDI PRN * Duonebs if needed * Continue to monitor Code status: Full code PCP: Dr. Madelin Rincon at [facility] in [place]. DVT prophylaxis: Home warfarin resumed. SCDs and GUERRERO hose contraindicated due to lower extremity wounds. We will start DVT prophylactic Lovenox. Disposition: Patient admitted to medical floor for further pain control and PT OT due to femur fracture and significant hematomas. Upgraded to telemetry given cardiac history. Likely discharge tomorrow pending results of INR. Length of stay greater than 96 hours due to concerns over infection and leg wounds, resumption of home warfarin. <Anton Johnson Jr - Last Filed: 01/30/21 05:52> - Patient Data Vitals - Most Recent: Last Vital Signs Temp 99.7 F 01/29/21 20:44 Pulse 83 01/29/21 20:44 Resp 16 01/29/21 20:44 BP 121/59 L 01/29/21 20:44 Pulse Ox 95 01/29/21 20:44 I&O - Last 24 Hours: Intake & Output 01/29/21 01/29/21 01/30/21 14:59 22:59 06:59 Intake Total 480 800 Output Total 750 600 Balance 480 50 -600 Lab Results Last 24 Hours: Laboratory Results - last 24 hr 01/29/21 01/29/21 01/29/21 Range/Units 05:10 05:10 05:10 WBC 9.66 H (4.23-9.07) K/mm3 RBC 3.06 L (4.63-6.08) M/mm3 Hgb 9.1 L (13.7-17.5) gm/dl Hct 29.4 L (40.1-51.0) % MCV 96.1 H (79.0-92.2) fl MCH 29.7 (25.7-32.2) pg MCHC 31.0 L (32.2-35.5) g/dl RDW Std Deviation 47.8 H (35.1-43.9) fL Plt Count 210 (163-337) K/mm3 MPV 10.1 (9.4-12.3) fl Neut % (Auto) 64.7 (34.0-67.9) % Lymph % (Auto) 19.0 L (21.8-53.1) % Sumner % (Auto) 12.4 H (5.3-12.2) % Eos % (Auto) 2.2 (0.8-7.0) Baso % (Auto) 0.3 (0.1-1.2) % Neut # (Auto) 6.24 H (1.78-5.38) K/mm3 Lymph # (Auto) 1.84 (1.32-3.57) K/mm3 Sumner # (Auto) 1.20 H (0.30-0.82) K/mm3 Eos # (Auto) 0.21 (0.04-0.54) K/mm3 Baso # (Auto) 0.03 (0.01-0.08) K/mm3 Manual Slide Review Normal smear PT 10.7 (9.7-12.0) SECONDS INR 1.00 Sodium 140 (136-145) mEq/L Potassium 3.9 (3.5-5.1) mEq/L Chloride 104 (98-107) mEq/L Carbon Dioxide 26 (21-32) mEq/L Anion Gap 13.9 (5-15) BUN 20 H (7-18) mg/dL Creatinine 0.9 (0.7-1.3) mg/dL Est Cr Clr Drug Dosing 73.10 mL/min Estimated GFR (MDRD) > 60 (>60) mL/min BUN/Creatinine Ratio 22.2 H (14-18) Glucose 95 (70-99) mg/dL Calcium 8.8 (8.5-10.1) mg/dL Total Bilirubin 2.1 H (0.2-1.0) mg/dL AST 39 H (15-37) U/L ALT 46 (16-63) U/L Alkaline Phosphatase 73 (46-116) U/L Creatine Kinase 167 (39-308) U/L Total Protein 7.1 (6.4-8.2) g/dl Albumin 3.3 L (3.4-5.0) g/dl Globulin 3.8 gm/dL Albumin/Globulin Ratio 0.9 L (1-2) Procalcitonin ng/mL Urine Color (Yellow) Urine Appearance (Clear) Urine pH (5.0-8.0) Ur Specific [place] (1.005-1.030) Urine Protein (Negative) Urine Glucose (UA) (Negative) Urine Ketones (Negative) Urine Occult Blood (Negative) Urine Nitrite (Negative) Urine Bilirubin (Negative) Urine Urobilinogen (0.2-1.0) Ur Leukocyte Esterase (Negative) Urine RBC (0-5) /hpf Urine WBC (0-5) /hpf Ur Squamous Epith Cells (0-5) /hpf Urine Bacteria (FEW) /hpf Urine Mucus (FEW) /hpf 01/29/21 01/29/21 Range/Units 05:10 15:20 WBC (4.23-9.07) K/mm3 RBC (4.63-6.08) M/mm3 Hgb (13.7-17.5) gm/dl Hct (40.1-51.0) % MCV (79.0-92.2) fl MCH (25.7-32.2) pg MCHC (32.2-35.5) g/dl RDW Std Deviation (35.1-43.9) fL Plt Count (163-337) K/mm3 MPV (9.4-12.3) fl Neut % (Auto) (34.0-67.9) % Lymph % (Auto) (21.8-53.1) % Sumner % (Auto) (5.3-12.2) % Eos % (Auto) (0.8-7.0) Baso % (Auto) (0.1-1.2) % Neut # (Auto) (1.78-5.38) K/mm3 Lymph # (Auto) (1.32-3.57) K/mm3 Sumner # (Auto) (0.30-0.82) K/mm3 Eos # (Auto) (0.04-0.54) K/mm3 Baso # (Auto) (0.01-0.08) K/mm3 Manual Slide Review PT (9.7-12.0) SECONDS INR Sodium (136-145) mEq/L Potassium (3.5-5.1) mEq/L Chloride (98-107) mEq/L Carbon Dioxide (21-32) mEq/L Anion Gap (5-15) BUN (7-18) mg/dL Creatinine (0.7-1.3) mg/dL Est Cr Clr Drug Dosing mL/min Estimated GFR (MDRD) (>60) mL/min BUN/Creatinine Ratio (14-18) Glucose (70-99) mg/dL Calcium (8.5-10.1) mg/dL Total Bilirubin (0.2-1.0) mg/dL AST (15-37) U/L ALT (16-63) U/L Alkaline Phosphatase (46-116) U/L Creatine Kinase (39-308) U/L Total Protein (6.4-8.2) g/dl Albumin (3.4-5.0) g/dl Globulin gm/dL Albumin/Globulin Ratio (1-2) Procalcitonin 0.10 H ng/mL Urine Color Dark yellow (Yellow) Urine Appearance Clear (Clear) Urine pH 6.0 (5.0-8.0) Ur Specific [place] 1.025 (1.005-1.030) Urine Protein Negative (Negative) Urine Glucose (UA) Negative (Negative) Urine Ketones Negative (Negative) Urine Occult Blood Trace-intact H (Negative) Urine Nitrite Negative (Negative) Urine Bilirubin Negative (Negative) Urine Urobilinogen 1.0 (0.2-1.0) Ur Leukocyte Esterase Negative (Negative) Urine RBC 0-5 (0-5) /hpf Urine WBC 0-5 (0-5) /hpf Ur Squamous Epith Cells Not seen (0-5) /hpf Urine Bacteria Moderate H (FEW) /hpf Urine Mucus Rare (FEW) /hpf Francesco Results Last 24 Hours: Microbiology 01/26/21 12:44 Aerobic Culture - Preliminary Leg, Right Gram Stain - Final Anaerobic Culture - Preliminary Med Orders - Current: Current Medications Acetaminophen (Acetaminophen 325 Mg Tab) 650 mg PO TID BUBBA Last Admin: 01/29/21 20:43 Dose: 650 mg Documented by: Albuterol (Albuterol 6.7 Gm Inhaler) 0 gm INH Q4H PRN PRN Reason: Shortness of Breath Albuterol/Ipratropium (Albuterol/Ipratropium 3.0-0.5 Mg/3 Ml Neb Soln) 3 ml NEB QIDRT PRN PRN Reason: Shortness Of Breath/wheezing Amlodipine Besylate (Amlodipine 2.5 Mg Tab) 2.5 mg PO DAILY [facility] Last Admin: 01/29/21 09:06 Dose: 2.5 mg Documented by: Aspirin (Aspirin 81 Mg Tab.Chew) 81 mg PO DAILY [facility] Last Admin: 01/29/21 09:09 Dose: 81 mg Documented by: Cyclobenzaprine HCl (Cyclobenzaprine 10 Mg Tab) 10 mg PO TID [facility] Last Admin: 01/29/21 20:43 Dose: 10 mg Documented by: Docusate Sodium (Docusate Sodium 100 Mg Cap) 100 mg PO Q12H [facility] Last Admin: 01/29/21 22:44 Dose: Not Given Documented by: Enoxaparin Sodium (Enoxaparin 40 Mg/0.4 Ml Syringe) 40 mg SUBCUT DAILY [facility] Last Admin: 01/29/21 09:10 Dose: 40 mg Documented by: Gabapentin (Gabapentin 300 Mg Cap) 300 mg PO BEDTIME [facility] Last Admin: 01/29/21 20:44 Dose: 300 mg Documented by: Hydromorphone HCl (Hydromorphone 1 Mg/Ml Syringe) 1 mg IVPUSH Q1H PRN PRN Reason: Pain (severe 7-10) Last Admin: 01/29/21 16:28 Dose: 1 mg Documented by: Ceftriaxone Sodium 1 gm/ (Sodium Chloride) 100 mls @ 200 mls/hr IV Q24H [facility] Last Admin: 01/29/21 20:43 Dose: 200 mls/hr Documented by: Isosorbide Mononitrate (Isosorbide Mononitrate 60 Mg Tab.Er) 60 mg PO DAILY [facility] Last Admin: 01/29/21 09:09 Dose: 60 mg Documented by: Metoprolol Succinate (Metoprolol Succinate 50 Mg Tab.Er) 50 mg PO DAILY [facility] Ondansetron HCl (Ondansetron 4 Mg/2 Ml Sdv) 4 mg IVPUSH Q6H PRN PRN Reason: Nausea Oxycodone HCl (Oxycodone 5 Mg Tab) 5 - 10 mg PO Q4H PRN PRN Reason: Pain Last Admin: 01/29/21 20:44 Dose: 10 mg Documented by: Polyethylene Glycol (Polyethylene Glycol 3350 Powder 17 Gm Packet) 17 gm PO DAILY [facility] Last Admin: 01/29/21 13:13 Dose: 17 gm Documented by: Warfarin Sodium (Pharmacy To Dose - Warfarin) 1 dose .XX ASDIRECTED [facility] Discontinued Medications Acetaminophen (Acetaminophen 325 Mg Tab) 650 mg PO Q4H PRN PRN Reason: Pain (Mild 1-3)/fever Last Admin: 01/23/21 21:51 Dose: 650 mg Documented by: Cyclobenzaprine HCl (Cyclobenzaprine 10 Mg Tab) 5 mg PO TID PRN PRN Reason: Muscle Spasm - Painful Last Admin: 01/24/21 14:16 Dose: 5 mg Documented by: Docusate Sodium (Docusate Sodium 100 Mg Cap) 100 mg PO Q12H PRN PRN Reason: Constipation Furosemide (Furosemide 20 Mg/2 Ml Vial) 20 mg IVPUSH ONETIME ONE Stop: 01/26/21 10:17 Last Admin: 01/26/21 11:20 Dose: 20 mg Documented by: Hydromorphone HCl (Hydromorphone 0.5 Mg/0.5 Ml Syringe) 0.5 mg IVPUSH ONETIME ONE Stop: 01/22/21 18:46 Last Admin: 01/22/21 19:00 Dose: 0.5 mg Documented by: Hydromorphone HCl (Hydromorphone 0.5 Mg/0.5 Ml Syringe) 0.5 mg IVPUSH ONETIME ONE Stop: 01/22/21 19:51 Last Admin: 01/22/21 20:04 Dose: 0.5 mg Documented by: Hydromorphone HCl (Hydromorphone 0.5 Mg/0.5 Ml Syringe) 0.5 mg IVPUSH Q2H PRN PRN Reason: Pain Last Admin: 01/24/21 14:16 Dose: 0.5 mg Documented by: Dextrose/Sodium Chloride (Dextrose 5%-Normal Saline) 1,000 mls @ 150 mls/hr IV ASDIRECTED [facility] Lactated Ringer's (Ringers, Lactated) 500 mls @ 250 mls/hr IV ONETIME ONE Stop: 01/25/21 09:44 Last Admin: 01/25/21 07:52 Dose: 250 mls/hr Documented by: Ceftriaxone Sodium 1 gm/ (Sodium Chloride) 100 mls @ 200 mls/hr IV Q24H [facility] Last Admin: 01/27/21 13:42 Dose: 200 mls/hr Documented by: Sodium Chloride (Normal Saline) 250 mls @ 100 mls/hr IV ASDIRECTED [facility] Last Admin: 01/25/21 18:33 Dose: 100 mls/hr Documented by: Sodium Chloride (Normal Saline) 1,000 mls @ 75 mls/hr IV ASDIRECTED [facility] Stop: 01/28/21 21:19 Last Admin: 01/28/21 02:08 Dose: 75 mls/hr Documented by: Lidocaine HCl (Xylocaine-Mpf 1%) Confirm Administered Dose 2 mls @ as directed .ROUTE .STK-MED ONE Stop: 01/27/21 14:48 Lorazepam (Lorazepam 2 Mg/Ml Sdv) 1 mg IVPUSH ONETIME ONE Stop: 01/22/21 16:52 Last Admin: 01/22/21 17:50 Dose: Not Given Documented by: Metoclopramide HCl (Metoclopramide 10 Mg/2 Ml Sdv) 10 mg IVPUSH ONETIME ONE Stop: 01/22/21 16:51 Last Admin: 01/22/21 17:51 Dose: Not Given Documented by: Metoprolol Succinate (Metoprolol Succinate 25 Mg Tab.Er) 50 mg PO DAILY [facility] Last Admin: 01/29/21 09:09 Dose: 50 mg Documented by: Ondansetron HCl (Ondansetron 4 Mg/2 Ml Sdv) 4 mg IVPUSH ONETIME ONE Stop: 01/22/21 18:46 Last Admin: 01/22/21 19:00 Dose: 4 mg Documented by: Oxycodone/Acetaminophen (Acetaminophen/Oxycodone 325-5 Mg Tab) 1 tab PO Q4H PRN PRN Reason: Pain (moderate 4-6) Last Admin: 01/24/21 12:00 Dose: 1 tab Documented by: Polyethylene Glycol (Polyethylene Glycol 3350 Powder 17 Gm Packet) 17 gm PO ASDIRECTED PRN PRN Reason: Constipation Last Admin: 01/25/21 08:18 Dose: 17 gm Documented by: Warfarin Sodium (Warfarin 5 Mg Tab) 5 mg PO ONETIME ONE Stop: 01/27/21 18:01 Last Admin: 01/27/21 18:26 Dose: 5 mg Documented by: Warfarin Sodium (Warfarin 5 Mg Tab) 5 mg PO ONETIME ONE Stop: 01/28/21 18:01 Last Admin: 01/28/21 17:53 Dose: 5 mg Documented by: Warfarin Sodium (Warfarin 5 Mg Tab) 5 mg PO QPM [facility] Stop: 01/29/21 18:01 Last Admin: 01/29/21 18:22 Dose: 5 mg Documented by: - Patient Data Lab Results Last 24 hrs: Laboratory Results - last 24 hr 01/29/21 01/29/21 01/29/21 Range/Units 05:10 05:10 05:10 WBC 9.66 H (4.23-9.07) K/mm3 RBC 3.06 L (4.63-6.08) M/mm3 Hgb 9.1 L (13.7-17.5) gm/dl Hct 29.4 L (40.1-51.0) % MCV 96.1 H (79.0-92.2) fl MCH 29.7 (25.7-32.2) pg MCHC 31.0 L (32.2-35.5) g/dl RDW Std Deviation 47.8 H (35.1-43.9) fL Plt Count 210 (163-337) K/mm3 MPV 10.1 (9.4-12.3) fl Neut % (Auto) 64.7 (34.0-67.9) % Lymph % (Auto) 19.0 L (21.8-53.1) % [place]ner % (Auto) 12.4 H (5.3-12.2) % Eos % (Auto) 2.2 (0.8-7.0) Baso % (Auto) 0.3 (0.1-1.2) % Neut # (Auto) 6.24 H (1.78-5.38) K/mm3 Lymph # (Auto) 1.84 (1.32-3.57) K/mm3 [place]ner # (Auto) 1.20 H (0.30-0.82) K/mm3 Eos # (Auto) 0.21 (0.04-0.54) K/mm3 Baso # (Auto) 0.03 (0.01-0.08) K/mm3 Manual Slide Review Normal smear PT 10.7 (9.7-12.0) SECONDS INR 1.00 Sodium 140 (136-145) mEq/L Potassium 3.9 (3.5-5.1) mEq/L Chloride 104 (98-107) mEq/L Carbon Dioxide 26 (21-32) mEq/L Anion Gap 13.9 (5-15) BUN 20 H (7-18) mg/dL Creatinine 0.9 (0.7-1.3) mg/dL Est Cr Clr Drug Dosing 73.10 mL/min Estimated GFR (MDRD) > 60 (>60) mL/min BUN/Creatinine Ratio 22.2 H (14-18) Glucose 95 (70-99) mg/dL Calcium 8.8 (8.5-10.1) mg/dL Total Bilirubin 2.1 H (0.2-1.0) mg/dL AST 39 H (15-37) U/L ALT 46 (16-63) U/L Alkaline Phosphatase 73 (46-116) U/L Creatine Kinase 167 (39-308) U/L Total Protein 7.1 (6.4-8.2) g/dl Albumin 3.3 L (3.4-5.0) g/dl Globulin 3.8 gm/dL Albumin/Globulin Ratio 0.9 L (1-2) Procalcitonin ng/mL Urine Color (Yellow) Urine Appearance (Clear) Urine pH (5.0-8.0) Ur Specific [place] (1.005-1.030) Urine Protein (Negative) Urine Glucose (UA) (Negative) Urine Ketones (Negative) Urine Occult Blood (Negative) Urine Nitrite (Negative) Urine Bilirubin (Negative) Urine Urobilinogen (0.2-1.0) Ur Leukocyte Esterase (Negative) Urine RBC (0-5) /hpf Urine WBC (0-5) /hpf Ur Squamous Epith Cells (0-5) /hpf Urine Bacteria (FEW) /hpf Urine Mucus (FEW) /hpf 01/29/21 01/29/21 Range/Units 05:10 15:20 WBC (4.23-9.07) K/mm3 RBC (4.63-6.08) M/mm3 Hgb (13.7-17.5) gm/dl Hct (40.1-51.0) % MCV (79.0-92.2) fl MCH (25.7-32.2) pg MCHC (32.2-35.5) g/dl RDW Std Deviation (35.1-43.9) fL Plt Count (163-337) K/mm3 MPV (9.4-12.3) fl Neut % (Auto) (34.0-67.9) % Lymph % (Auto) (21.8-53.1) % [place] % (Auto) (5.3-12.2) % Eos % (Auto) (0.8-7.0) Baso % (Auto) (0.1-1.2) % Neut # (Auto) (1.78-5.38) K/mm3 Lymph # (Auto) (1.32-3.57) K/mm3 [place] # (Auto) (0.30-0.82) K/mm3 Eos # (Auto) (0.04-0.54) K/mm3 Baso # (Auto) (0.01-0.08) K/mm3 Manual Slide Review PT (9.7-12.0) SECONDS INR Sodium (136-145) mEq/L Potassium (3.5-5.1) mEq/L Chloride (98-107) mEq/L Carbon Dioxide (21-32) mEq/L Anion Gap (5-15) BUN (7-18) mg/dL Creatinine (0.7-1.3) mg/dL Est Cr Clr Drug Dosing mL/min Estimated GFR (MDRD) (>60) mL/min BUN/Creatinine Ratio (14-18) Glucose (70-99) mg/dL Calcium (8.5-10.1) mg/dL Total Bilirubin (0.2-1.0) mg/dL AST (15-37) U/L ALT (16-63) U/L Alkaline Phosphatase (46-116) U/L Creatine Kinase (39-308) U/L Total Protein (6.4-8.2) g/dl Albumin (3.4-5.0) g/dl Globulin gm/dL Albumin/Globulin Ratio (1-2) Procalcitonin 0.10 H ng/mL Urine Color Dark yellow (Yellow) Urine Appearance Clear (Clear) Urine pH 6.0 (5.0-8.0) Ur Specific [place] 1.025 (1.005-1.030) Urine Protein Negative (Negative) Urine Glucose (UA) Negative (Negative) Urine Ketones Negative (Negative) Urine Occult Blood Trace-intact H (Negative) Urine Nitrite Negative (Negative) Urine Bilirubin Negative (Negative) Urine Urobilinogen 1.0 (0.2-1.0) Ur Leukocyte Esterase Negative (Negative) Urine RBC 0-5 (0-5) /hpf Urine WBC 0-5 (0-5) /hpf Ur Squamous Epith Cells Not seen (0-5) /hpf Urine Bacteria Moderate H (FEW) /hpf Urine Mucus Rare (FEW) /hpf Result Diagrams: 01/29/21 05:10 01/29/21 05:10 Francesco Results Last 24 hrs: Microbiology 01/26/21 12:44 Aerobic Culture - Preliminary Leg, Right Gram Stain - Final Anaerobic Culture - Preliminary Sepsis Event Note - Focused Exam Vital Signs: Vital Signs Temp Pulse Resp BP Pulse Ox 01/29/21 20:44 99.7 F 83 16 121/59 L 95 - Plan Plan:: Case discussed in full. Agree with evaluation, assessment and plan.
[2021-01-29] MEDS: amLODIPine 2.5 MG Tab PO SCH (09:06)
[2021-01-29] MEDS: Cyclobenzaprine 10 MG Tab PO SCH ×3 (09:07→20:43)
[2021-01-29] MEDS: Docusate Sodium 100 MG Cap PO SCH ×3 (09:09→22:44)
[2021-01-29] MEDS: Aspirin 81 MG Tab.Chew PO SCH (09:09)
[2021-01-29] MEDS: Metoprolol Succinate 25 MG Tab.ER PO SCH (09:09)
[2021-01-29] MEDS: Isosorbide Mononitrate 60 MG Tab.ER PO SCH (09:09)
[2021-01-29] MEDS: Enoxaparin 40 MG/0.4 ML Syringe SUBCUT SCH (09:10)
[2021-01-29] MEDS: Acetaminophen 325 MG Tab PO SCH ×3 (09:13→20:43)
--- NOTE | 2021-01-29 11:18 | US ---
Bilateral lower extremity deep venous ultrasound: Duplex and color Doppler evaluation was obtained of the right and left common femoral, proximal greater saphenous, superficial femoral, popliteal, posterior tibial and peroneal veins. Comparison: No prior venous study is available. Findings: Posterior tibial and peroneal veins are not well visualized within both lower extremities. Other visualized veins show normal phasic flow, augmentation and compression. Impression: 1. Posterior tibial and peroneal veins are not well visualized within both lower extremities. 2. Other portions of this study show no findings of deep venous thrombosis within either lower extremity. Diagnostic code #2
--- NOTE | 2021-01-29 12:02 | CR ---
Chest: AP and lateral views of the chest were obtained. Comparison: No prior chest imaging is available. Heart size is normal. Tortuous thoracic aorta is seen. Coronary artery stent is present. Lungs are clear with no acute parenchymal change. Prior vertebroplasty is noted within an upper thoracic vertebral body. Scattered degenerative change is noted within the spine with disc space narrowing and endplate spurring. Prior right shoulder surgery is seen. Impression: 1. Incidental findings as described above. 2. Nothing acute is seen on 2 view chest x-ray. Diagnostic code #2
[2021-01-29] MEDS: Polyethylene Glycol 3350 Powder 17 GM Packet PO SCH (13:13)
[2021-01-29] MEDS: HYDROmorphone 1 MG/ML Syringe IVPUSH PRN (16:28)
[2021-01-29] MEDS ORDERED: Warfarin 5 MG Tab PO SCH (18:00)
[2021-01-29] MEDS: cefTRIAXone 1 GM in Sodium Chloride 0.9% 100 ML IV SCH (20:43)
[2021-01-29] MEDS: Gabapentin 300 MG Cap PO SCH (20:44)
[2021-01-30] MEDS: oxyCODONE 5 MG Tab PO PRN (07:30)
[2021-01-30 08:49] VITALS: BP 163/64; PULSE 87
[2021-01-30] MEDS: Docusate Sodium 100 MG Cap PO SCH (08:54)
[2021-01-30] MEDS: Aspirin 81 MG Tab.Chew PO SCH (08:54)
[2021-01-30] MEDS: Acetaminophen 325 MG Tab PO SCH (08:54)
[2021-01-30] MEDS: Cyclobenzaprine 10 MG Tab PO SCH (08:54)
[2021-01-30] MEDS: Isosorbide Mononitrate 60 MG Tab.ER PO SCH (08:54)
[2021-01-30] MEDS: amLODIPine 2.5 MG Tab PO SCH (08:54)
[2021-01-30] MEDS: Polyethylene Glycol 3350 Powder 17 GM Packet PO SCH (08:55)
[2021-01-30] MEDS: Enoxaparin 40 MG/0.4 ML Syringe SUBCUT SCH (08:55)
[2021-01-30] MEDS ORDERED: Metoprolol Succinate 50 MG Tab.ER PO SCH (09:00)
--- NOTE | 2021-01-30 09:16 | PCM.DCSUM1 ---
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 Saline) 1,000 mls @ 150 mls/hr IV ASDIRECTED [facility] Lactated Ringer's (Ringers, Lactated) 500 mls @ 250 mls/hr IV ONETIME ONE Stop: 01/25/21 09:44 Last Admin: 01/25/21 07:52 Dose: 250 mls/hr Documented by: Ceftriaxone Sodium 1 gm/ (Sodium Chloride) 100 mls @ 200 mls/hr IV Q24H [facility] Last Admin: 01/27/21 13:42 Dose: 200 mls/hr Documented by: Sodium Chloride (Normal Saline) 250 mls @ 100 mls/hr IV ASDIRECTED [facility] Last Admin: 01/25/21 18:33 Dose: 100 mls/hr Documented by: Sodium Chloride (Normal Saline) 1,000 mls @ 75 mls/hr IV ASDIRECTED [facility] Stop: 01/28/21 21:19 Last Admin: 01/28/21 02:08 Dose: 75 mls/hr Documented by: Lidocaine HCl (Xylocaine-Mpf 1%) Confirm Administered Dose 2 mls @ as directed .ROUTE .STK-MED ONE Stop: 01/27/21 14:48 Lorazepam (Lorazepam 2 Mg/Ml Sdv) 1 mg IVPUSH ONETIME ONE Stop: 01/22/21 16:52 Last Admin: 01/22/21 17:50 Dose: Not Given Documented by: Metoclopramide HCl (Metoclopramide 10 Mg/2 Ml Sdv) 10 mg IVPUSH ONETIME ONE Stop: 01/22/21 16:51 Last Admin: 01/22/21 17:51 Dose: Not Given Documented by: Metoprolol Succinate (Metoprolol Succinate 25 Mg Tab.Er) 50 mg PO DAILY [facility] Last Admin: 01/29/21 09:09 Dose: 50 mg Documented by: Ondansetron HCl (Ondansetron 4 Mg/2 Ml Sdv) 4 mg IVPUSH ONETIME ONE Stop: 01/22/21 18:46 Last Admin: 01/22/21 19:00 Dose: 4 mg Documented by: Oxycodone/Acetaminophen (Acetaminophen/Oxycodone 325-5 Mg Tab) 1 tab PO Q4H PRN PRN Reason: Pain (moderate 4-6) Last Admin: 01/24/21 12:00 Dose: 1 tab Documented by: Polyethylene Glycol (Polyethylene Glycol 3350 Powder 17 Gm Packet) 17 gm PO ASDIRECTED PRN PRN Reason: Constipation Last Admin: 01/25/21 08:18 Dose: 17 gm Documented by: Warfarin Sodium (Warfarin 5 Mg Tab) 5 mg PO ONETIME ONE Stop: 01/27/21 18:01 Last Admin: 01/27/21 18:26 Dose: 5 mg Documented by: Warfarin Sodium (Warfarin 5 Mg Tab) 5 mg PO ONETIME ONE Stop: 01/28/21 18:01 Last Admin: 01/28/21 17:53 Dose: 5 mg Documented by: Warfarin Sodium (Warfarin 5 Mg Tab) 5 mg PO QPM [facility] Stop: 01/29/21 18:01 Last Admin: 01/29/21 18:22 Dose: 5 mg Documented by: - Exam Quality Assessment: Reports: DVT Prophylaxis. Denies: Supplemental Oxygen, Urine Catheter General: Reports: Alert, Oriented, Cooperative, No Acute Distress HEENT: Reports: Pupils Equal, Pupils Reactive, Mucous Membr. Moist/[place] Neck: Reports: Supple, Trachea Midline Lungs: Reports: Clear to Auscultation, Normal Respiratory Effort Cardiovascular: Reports: Regular Rate, Regular Rhythm GI/Abdominal Exam: Normal Bowel Sounds, Soft, Non-Tender, No Distention (Male) Exam: Deferred Rectal (Males) Exam: Deferred Back Exam: Reports: Normal Inspection, Full Range of Motion Extremities: Pedal Edema, Leg Pain, Other (Bilateral lower extremity healing hematomas with yellow discoloration to skin. Bilateral lateral wounds with small blistering. No signs of infection. There is nonpurulent drainage.). No: Increased Warmth, Redness Skin: Reports: Warm, Dry, Intact, Ecchymosis (Scattered ) Wound/Incisions: Reports: Healing Well, Drainage. Denies: Erythema Neurological: Reports: No New Focal Deficit Psy/Mental Status: Reports: Alert, Normal Affect, Normal Mood <Anton Johnson Jr - Last Filed: 01/30/21 14:43> Discharge Summary - Referral to Home Health Primary Care Physician: Madelin Rincon MD - Patient Summary/Data Consults: Consultations 01/23/21 08:12 Consult to Case Management/Lingo Cleaner [CONS] Routine 01/23/21 08:14 OT Evaluation and Treatment [CONS] Routine PT Evaluation and Treatment [CONS] Routine 01/26/21 09:12 Consult to Physical Therapy [PT Evaluation and Treatment] [CONS] Routine - Discharge Summary/Plan Comment Discharge Summary/Plan Comment: Case discussed in full. Agree with evaluation, assessment and plan. - Patient Data Vitals - Most Recent: Last Vital Signs Temp 98.6 F 01/30/21 08:43 Pulse 87 01/30/21 08:54 Resp 18 01/30/21 08:43 BP 163/64 H 01/30/21 08:54 Pulse Ox 97 01/30/21 08:43 I&O - Last 24 hours: Intake & Output 01/29/21 01/30/21 01/30/21 22:59 06:59 14:59 Intake Total 1580 Output Total 750 600 Balance 830 -600 Lab Results - Last 24 hrs: Laboratory Results - last 24 hr 01/29/21 01/29/21 01/30/21 Range/Units 05:10 15:20 05:10 WBC 8.66 (4.23-9.07) K/mm3 RBC 2.77 L (4.63-6.08) M/mm3 Hgb 8.2 L (13.7-17.5) gm/dl Hct 26.4 L (40.1-51.0) % MCV 95.3 H (79.0-92.2) fl MCH 29.6 (25.7-32.2) pg MCHC 31.1 L (32.2-35.5) g/dl RDW Std Deviation 47.1 H (35.1-43.9) fL Plt Count 214 (163-337) K/mm3 MPV 9.9 (9.4-12.3) fl Neut % (Auto) 60.4 (34.0-67.9) % Lymph % (Auto) 20.2 L (21.8-53.1) % Burt % (Auto) 13.9 H (5.3-12.2) % Eos % (Auto) 3.7 (0.8-7.0) Baso % (Auto) 0.3 (0.1-1.2) % Neut # (Auto) 5.23 (1.78-5.38) K/mm3 Lymph # (Auto) 1.75 (1.32-3.57) K/mm3 Burt # (Auto) 1.20 H (0.30-0.82) K/mm3 Eos # (Auto) 0.32 (0.04-0.54) K/mm3 Baso # (Auto) 0.03 (0.01-0.08) K/mm3 Manual Slide Review Normal smear PT (9.7-12.0) SECONDS INR Sodium (136-145) mEq/L Potassium (3.5-5.1) mEq/L Chloride (98-107) mEq/L Carbon Dioxide (21-32) mEq/L Anion Gap (5-15) BUN (7-18) mg/dL Creatinine (0.7-1.3) mg/dL Est Cr Clr Drug Dosing mL/min Estimated GFR (MDRD) (>60) mL/min BUN/Creatinine Ratio (14-18) Glucose (70-99) mg/dL Calcium (8.5-10.1) mg/dL Total Bilirubin (0.2-1.0) mg/dL AST (15-37) U/L ALT (16-63) U/L Alkaline Phosphatase (46-116) U/L Total Protein (6.4-8.2) g/dl Albumin (3.4-5.0) g/dl Globulin gm/dL Albumin/Globulin Ratio (1-2) Procalcitonin 0.10 H ng/mL Urine Color Dark yellow (Yellow) Urine Appearance Clear (Clear) Urine pH 6.0 (5.0-8.0) Ur Specific [place] 1.025 (1.005-1.030) Urine Protein Negative (Negative) Urine Glucose (UA) Negative (Negative) Urine Ketones Negative (Negative) Urine Occult Blood Trace-intact H (Negative) Urine Nitrite Negative (Negative) Urine Bilirubin Negative (Negative) Urine Urobilinogen 1.0 (0.2-1.0) Ur Leukocyte Esterase Negative (Negative) Urine RBC 0-5 (0-5) /hpf Urine WBC 0-5 (0-5) /hpf Ur Squamous Epith Cells Not seen (0-5) /hpf Urine Bacteria Moderate H (FEW) /hpf Urine Mucus Rare (FEW) /hpf 01/30/21 01/30/21 Range/Units 05:10 05:10 WBC (4.23-9.07) K/mm3 RBC (4.63-6.08) M/mm3 Hgb (13.7-17.5) gm/dl Hct (40.1-51.0) % MCV (79.0-92.2) fl MCH (25.7-32.2) pg MCHC (32.2-35.5) g/dl RDW Std Deviation (35.1-43.9) fL Plt Count (163-337) K/mm3 MPV (9.4-12.3) fl Neut % (Auto) (34.0-67.9) % Lymph % (Auto) (21.8-53.1) % Burt % (Auto) (5.3-12.2) % Eos % (Auto) (0.8-7.0) Baso % (Auto) (0.1-1.2) % Neut # (Auto) (1.78-5.38) K/mm3 Lymph # (Auto) (1.32-3.57) K/mm3 Burt # (Auto) (0.30-0.82) K/mm3 Eos # (Auto) (0.04-0.54) K/mm3 Baso # (Auto) (0.01-0.08) K/mm3 Manual Slide Review PT 12.1 H (9.7-12.0) SECONDS INR 1.13 Sodium 140 (136-145) mEq/L Potassium 4.3 (3.5-5.1) mEq/L Chloride 105 (98-107) mEq/L Carbon Dioxide 25 (21-32) mEq/L Anion Gap 14.3 (5-15) BUN 19 H (7-18) mg/dL Creatinine 0.9 (0.7-1.3) mg/dL Est Cr Clr Drug Dosing 73.10 mL/min Estimated GFR (MDRD) > 60 (>60) mL/min BUN/Creatinine Ratio 21.1 H (14-18) Glucose 101 H (70-99) mg/dL Calcium 8.5 (8.5-10.1) mg/dL Total Bilirubin 2.2 H (0.2-1.0) mg/dL AST 49 H (15-37) U/L ALT 59 (16-63) U/L Alkaline Phosphatase 74 (46-116) U/L Total Protein 6.5 (6.4-8.2) g/dl Albumin 2.9 L (3.4-5.0) g/dl Globulin 3.6 gm/dL Albumin/Globulin Ratio 0.8 L (1-2) Procalcitonin ng/mL Urine Color (Yellow) Urine Appearance (Clear) Urine pH (5.0-8.0) Ur Specific [place] (1.005-1.030) Urine Protein (Negative) Urine Glucose (UA) (Negative) Urine Ketones (Negative) Urine Occult Blood (Negative) Urine Nitrite (Negative) Urine Bilirubin (Negative) Urine Urobilinogen (0.2-1.0) Ur Leukocyte Esterase (Negative) Urine RBC (0-5) /hpf Urine WBC (0-5) /hpf Ur Squamous Epith Cells (0-5) /hpf Urine Bacteria (FEW) /hpf Urine Mucus (FEW) /hpf [facility]OS[facility] Results - Last 24 hrs: Microbiology 01/28/21 20:15 Blood Culture - Preliminary Blood - Venous - Lab Draw 01/28/21 19:55 Blood Culture - Preliminary Blood - Venous - Lab Draw 01/26/21 12:44 Aerobic Culture - Preliminary Leg, Right Gram Stain - Final Anaerobic Culture - Preliminary Med Orders - Current: Current Medications Discontinued Medications Acetaminophen (Acetaminophen 325 Mg Tab) 650 mg PO Q4H PRN PRN Reason: Pain (Mild 1-3)/fever Last Admin: 01/23/21 21:51 Dose: 650 mg Documented by: Acetaminophen (Acetaminophen 325 Mg Tab) 650 mg PO TID [facility] Last Admin: 01/30/21 08:54 Dose: 650 mg Documented by: Albuterol (Albuterol 6.7 Gm Inhaler) 0 gm INH Q4H PRN PRN Reason: Shortness of Breath Albuterol/Ipratropium (Albuterol/Ipratropium 3.0-0.5 Mg/3 Ml Neb Soln) 3 ml NEB QIDRT PRN PRN Reason: Shortness Of Breath/wheezing Amlodipine Besylate (Amlodipine 2.5 Mg Tab) 2.5 mg PO DAILY [facility] Last Admin: 01/30/21 08:54 Dose: 2.5 mg Documented by: Aspirin (Aspirin 81 Mg Tab.Chew) 81 mg PO DAILY [facility] Last Admin: 01/30/21 08:54 Dose: 81 mg Documented by: Cyclobenzaprine HCl (Cyclobenzaprine 10 Mg Tab) 5 mg PO TID PRN PRN Reason: Muscle Spasm - Painful Last Admin: 01/24/21 14:16 Dose: 5 mg Documented by: Cyclobenzaprine HCl (Cyclobenzaprine 10 Mg Tab) 10 mg PO TID [facility] Last Admin: 01/30/21 08:54 Dose: 10 mg Documented by: Docusate Sodium (Docusate Sodium 100 Mg Cap) 100 mg PO Q12H PRN PRN Reason: Constipation Docusate Sodium (Docusate Sodium 100 Mg Cap) 100 mg PO Q12H [facility] Last Admin: 01/30/21 08:54 Dose: 100 mg Documented by: Enoxaparin Sodium (Enoxaparin 40 Mg/0.4 Ml Syringe) 40 mg SUBCUT DAILY [facility] Last Admin: 01/30/21 08:55 Dose: 40 mg Documented by: Furosemide (Furosemide 20 Mg/2 Ml Vial) 20 mg IVPUSH ONETIME ONE Stop: 01/26/21 10:17 Last Admin: 01/26/21 11:20 Dose: 20 mg Documented by: Gabapentin (Gabapentin 300 Mg Cap) 300 mg PO BEDTIME [facility] Last Admin: 01/29/21 20:44 Dose: 300 mg Documented by: Hydromorphone HCl (Hydromorphone 0.5 Mg/0.5 Ml Syringe) 0.5 mg IVPUSH ONETIME ONE Stop: 01/22/21 18:46 Last Admin: 01/22/21 19:00 Dose: 0.5 mg Documented by: Hydromorphone HCl (Hydromorphone 0.5 Mg/0.5 Ml Syringe) 0.5 mg IVPUSH ONETIME ONE Stop: 01/22/21 19:51 Last Admin: 01/22/21 20:04 Dose: 0.5 mg Documented by: Hydromorphone HCl (Hydromorphone 0.5 Mg/0.5 Ml Syringe) 0.5 mg IVPUSH Q2H PRN PRN Reason: Pain Last Admin: 01/24/21 14:16 Dose: 0.5 mg Documented by: Hydromorphone HCl (Hydromorphone 1 Mg/Ml Syringe) 1 mg IVPUSH Q1H PRN PRN Reason: Pain (severe 7-10) Last Admin: 01/29/21 16:28 Dose: 1 mg Documented by: Dextrose/Sodium Chloride (Dextrose 5%-Normal Saline) 1,000 mls @ 150 mls/hr IV ASDIRECTED [facility] Lactated Ringer's (Ringers, Lactated) 500 mls @ 250 mls/hr IV ONETIME ONE Stop: 01/25/21 09:44 Last Admin: 01/25/21 07:52 Dose: 250 mls/hr Documented by: Ceftriaxone Sodium 1 gm/ (Sodium Chloride) 100 mls @ 200 mls/hr IV Q24H [facility] Last Admin: 01/27/21 13:42 Dose: 200 mls/hr Documented by: Sodium Chloride (Normal Saline) 250 mls @ 100 mls/hr IV ASDIRECTED [facility] Last Admin: 01/25/21 18:33 Dose: 100 mls/hr Documented by: Sodium Chloride (Normal Saline) 1,000 mls @ 75 mls/hr IV ASDIRECTED [facility] Stop: 01/28/21 21:19 Last Admin: 01/28/21 02:08 Dose: 75 mls/hr Documented by: Lidocaine HCl (Xylocaine-Mpf 1%) Confirm Administered Dose 2 mls @ as directed .ROUTE .STK-MED ONE Stop: 01/27/21 14:48 Ceftriaxone Sodium 1 gm/ (Sodium Chloride) 100 mls @ 200 mls/hr IV Q24H [facility] Last Admin: 01/29/21 20:43 Dose: 200 mls/hr Documented by: Isosorbide Mononitrate (Isosorbide Mononitrate 60 Mg Tab.Er) 60 mg PO DAILY [facility] Last Admin: 01/30/21 08:54 Dose: 60 mg Documented by: Lorazepam (Lorazepam 2 Mg/Ml Sdv) 1 mg IVPUSH ONETIME ONE Stop: 01/22/21 16:52 Last Admin: 01/22/21 17:50 Dose: Not Given Documented by: Metoclopramide HCl (Metoclopramide 10 Mg/2 Ml Sdv) 10 mg IVPUSH ONETIME ONE Stop: 01/22/21 16:51 Last Admin: 01/22/21 17:51 Dose: Not Given Documented by: Metoprolol Succinate (Metoprolol Succinate 25 Mg Tab.Er) 50 mg PO DAILY [facility] Last Admin: 01/29/21 09:09 Dose: 50 mg Documented by: Metoprolol Succinate (Metoprolol Succinate 50 Mg Tab.Er) 50 mg PO DAILY [facility] Last Admin: 01/30/21 08:54 Dose: 50 mg Documented by: Ondansetron HCl (Ondansetron 4 Mg/2 Ml Sdv) 4 mg IVPUSH ONETIME ONE Stop: 01/22/21 18:46 Last Admin: 01/22/21 19:00 Dose: 4 mg Documented by: Ondansetron HCl (Ondansetron 4 Mg/2 Ml Sdv) 4 mg IVPUSH Q6H PRN PRN Reason: Nausea Oxycodone HCl (Oxycodone 5 Mg Tab) 5 - 10 mg PO Q4H PRN PRN Reason: Pain Last Admin: 01/30/21 07:30 Dose: 5 mg Documented by: Oxycodone/Acetaminophen (Acetaminophen/Oxycodone 325-5 Mg Tab) 1 tab PO Q4H PRN PRN Reason: Pain (moderate 4-6) Last Admin: 01/24/21 12:00 Dose: 1 tab Documented by: Polyethylene Glycol (Polyethylene Glycol 3350 Powder 17 Gm Packet) 17 gm PO ASDIRECTED PRN PRN Reason: Constipation Last Admin: 01/25/21 08:18 Dose: 17 gm Documented by: Polyethylene Glycol (Polyethylene Glycol 3350 Powder 17 Gm Packet) 17 gm PO DAILY [facility] Last Admin: 01/30/21 08:55 Dose: 17 gm Documented by: Warfarin Sodium (Pharmacy To Dose - Warfarin) 1 dose .XX ASDIRECTED [facility] Warfarin Sodium (Warfarin 5 Mg Tab) 5 mg PO ONETIME ONE Stop: 01/27/21 18:01 Last Admin: 01/27/21 18:26 Dose: 5 mg Documented by: Warfarin Sodium (Warfarin 5 Mg Tab) 5 mg PO ONETIME ONE Stop: 01/28/21 18:01 Last Admin: 01/28/21 17:53 Dose: 5 mg Documented by: Warfarin Sodium (Warfarin 5 Mg Tab) 5 mg PO QPM [facility] Stop: 01/29/21 18:01 Last Admin: 01/29/21 18:22 Dose: 5 mg Documented by: Warfarin Sodium (Warfarin 5 Mg Tab) 5 mg PO ONETIME ONE Stop: 01/30/21 10:01 Last Admin: 01/30/21 10:00 Dose: 5 mg Documented by:
[2021-01-30] MEDS ORDERED: Warfarin 5 MG Tab PO ONE (10:00)
--- NOTE | 2021-02-02 15:24 | PCM.SN.2 ---
- Free Text/Narrative Note: Results of patient's outpatient lab testing was faxed over from [facility]. INR is 2.0. WBC 9.5. Hemoglobin is 9.5. Hematocrit 29.8. He is normocytic. Platelets are 328,000. On discharge patient's INR was 1.13. Patient's hemoglobin was 8.2 and platelets were 14,000. This is an improvement from discharge. Contacted patient to update results. Patient reports he is still healing but feels better.
== END 2021-01-30 11:14 | disposition home or self-care (01) | DRG 605 ==
LOC: JD.ED 15:31 → JD.MS 18:47
PROVIDERS: ADMIT Hospitalist; ATTEND Hospitalist
PROC: 30233N1 Transfusion of Nonautologous Red Blood Cells into Peripheral Vein, Percutaneous Approach (ICD-10-PCS; principal; 2021-01-29)
DX: S80.11XA Contusion of right lower leg, initial encounter (principal); L03.115 Cellulitis of right lower limb; S82.831A Other fracture of upper and lower end of right fibula, initial encounter for closed fracture; S70.01XA Contusion of right hip, initial encounter; S80.12XA Contusion of left lower leg, initial encounter; M89.49 Other hypertrophic osteoarthropathy, multiple sites; M54.9 Dorsalgia, unspecified; G89.29 Other chronic pain; E78.5 Hyperlipidemia, unspecified; Z20.822 Contact with and (suspected) exposure to COVID-19; I10 Essential (primary) hypertension; J44.9 Chronic obstructive pulmonary disease, unspecified; I48.0 Paroxysmal atrial fibrillation; D64.9 Anemia, unspecified; H91.90 Unspecified hearing loss, unspecified ear; E78.00 Pure hypercholesterolemia, unspecified; Z96.642 Presence of left artificial hip joint; R50.9 Fever, unspecified; I25.2 Old myocardial infarction; Z95.5 Presence of coronary angioplasty implant and graft; Z79.01 Long term (current) use of anticoagulants; Z88.8 Allergy status to other drugs, medicaments and biological substances; Z86.73 Personal history of transient ischemic attack (TIA), and cerebral infarction without residual deficits; Z98.49 Cataract extraction status, unspecified eye; Z87.442 Personal history of urinary calculi; W55.22XA Struck by cow, initial encounter
CPT/HCPCS: 36415; 36430; 71046; 71046-26; 73552-26-RT; 73552-RT; 73590-26-LT; 73590-26-RT; 73590-LT; 73590-RT; 73701-26-LT; 73701-26-RT; 73701-LT; 73701-RT; 76881-26-RT; 76881-RT; 80048; 80053; 81001; 82550; 83735; 84145; 85014; 85018; 85025; 85610; 86850; 86900; 86901; 86922; 87040; 87070; 87075; 87205; 93005; 93010; 93970; 93970-26; 97110-GP; 97116-GP; 97161-GP; 97597-GP; 99223; 99233; 99239; 99285; 99285-25; A9270-GY; J0696; J1170; J1650; J1940; J2405; J7030; J7050; J7120; P9016; U0002